=== PATIENT | female | born 1975 | race Caucasian/White ===

== ENCOUNTER 2016-11-28 15:02 | Emergency (ER) | payer OTHER ==
[2016-11-28 15:10] VITALS: TEMP 97.8
[2016-11-28 15:47] LABS: Appearance,Urine Clear (Clear); Bacteria,Urine Rare /hpf; Bilirubin,Urine Negative (Negative); Glucose,Urine (UA) Negative (Negative); Ketones,Urine Negative (Negative); Leukocyte Esterase,Urine Negative (Negative); Mucus,Urine Rare /hpf; Nitrite,Urine Negative (Negative); PH, Urine 5.5 (5.0-8.0); Particle Count 1193; Protein,Urine Negative (Negative); RBC,Urine 1 /hpf (0-5); Specific Gravity,Urine 1.011 (1.001-1.035); Squamous Epithelial Cell,Urine <1 /hpf (0-4); UA Billing (MACRO vs. MICRO) MICRO; Urobilinogen,Urine <2.0 mg/dL (<2.0); WBC,Urine 1 /hpf (0-5)
--- NOTE | 2016-11-28 16:09 | ED ---
General Adult HPI - General Chief complaint: Urogenital Stated complaint: Lost IUD Time Seen by Provider: 11/28/16 15:17 Source: patient, RN notes reviewed Mode of arrival: ambulatory Limitations: no limitations - Related Data Home Medications Medication Instructions Recorded Confirmed Evening [place] Oil 500 mg PO DAILY 11/28/16 11/28/16 Licha 500 mg PO DAILY 11/28/16 11/28/16 Magnesium Oxide [Mag-Ox] 400 mg PO DAILY 11/28/16 11/28/16 Turmeric/Turmeric Root Extract 1 cap PO DAILY 11/28/16 11/28/16 [Turmeric 450-50 mg Capsule] Previous Rx's Medication Instructions Recorded Nitrofurantoin Monohyd/M-Cryst 100 mg PO Q12HR #14 cap 11/28/16 [Macrobid] Allergies Allergy/AdvReac Type Severity Reaction Status Date / Time iodine Allergy Rash/Hives Verified 11/28/16 15:10 shellfish derived [Shellfish] Allergy Anaphylaxis Verified 11/28/16 15:10 prednisone AdvReac Severe Increased Verified 11/28/16 15:17 Blood Pressure Review of Systems ROS Statement: Those systems with pertinent positive or pertinent negative responses have been documented in the HPI. ROS Other: All systems not noted in ROS Statement are negative. Past Medical History Past Medical History: Asthma, Chest Pain / Angina, Liver Disease Additional Past Medical History / Comment(s): polycystic kidneys, lupus, heart murmur, pleurisy, elevated liver enzymes History of Any Multi-Drug Resistant Organisms: None Reported Past Surgical History: Appendectomy, Cholecystectomy, Tonsillectomy Additional Past Surgical History / Comment(s): wisdom teeth removal, colonoscopy and egd, IUD, kidney surgery Past Anesthesia/Blood Transfusion Reactions: Postoperative Nausea & Vomiting ( PONV) Past Psychological History: No Psychological Hx Reported Smoking Status: Former smoker Past Alcohol Use History: None Reported Past Drug Use History: None Reported - Past Family History Mother Family Medical History: Hypertension Additional Family Medical History / Comment(s): hypoglycemic General Exam Limitations: no limitations Course Vital Signs 11/28/16 11/28/16 15:06 16:12 Temperature 97.8 F Pulse Rate 80 64 Respiratory 18 16 Rate Blood Pressure 192/86 169/82 O2 Sat by Pulse 100 100 Oximetry Medical Decision Making - Medical Decision Making X-ray does confirm that IUD is still present. Patient's labs are reviewed does show some white cell clumps. She does admit to some symptoms of UTI. Will be started on antibiotic as cultures pending. Pelvic cultures also pending at this time. Patient is advised follow-up to [facility] over the next 2 days. Advised return to emergency room if symptoms increase or worsen or for new concerns. - Lab Data Lab Results 11/28/16 11/28/16 Range/Units 15:29 15:29 Urine Color Yellow Urine Appearance Clear (Clear) Urine pH 5.5 (5.0-8.0) Ur Specific [place] 1.011 (1.001-1.035) Urine Protein Negative (Negative) Urine Glucose (UA) Negative (Negative) Urine Ketones Negative (Negative) Urine Blood Trace H (Negative) Urine Nitrite Negative (Negative) Urine Bilirubin Negative (Negative) Urine Urobilinogen <2.0 (<2.0) mg/dL Ur Leukocyte Esterase Negative (Negative) Urine RBC 1 (0-5) /hpf Urine WBC 1 (0-5) /hpf Urine WBC Clumps Rare H (None) /hpf Ur Squamous Epith Cells <1 (0-4) /hpf Urine Bacteria Rare H (None) /hpf Urine Mucus Rare H (None) /hpf Urine HCG, Qual Not Detected (Not Detectd) Disposition Clinical Impression: Abdominal pain Disposition: HOME SELF-CARE Condition: Good Instructions: Abdominal Pain (ED) Additional Instructions: Please use medication as discussed. Please follow-up with family doctor in the next 2 days of symptoms have not improved. Please return to emergency room if the symptoms increase or worsen or for any other concerns. Prescriptions: Nitrofurantoin Monohyd/M-Cryst [Macrobid] 100 mg PO Q12HR #14 cap Referrals: Dony García MD [Primary Care Provider] - 1-2 days Time of Disposition: 16:45
[2016-11-28 16:13] VITALS: BP 169/82; PULSE 64; RESP 16
--- NOTE | 2016-11-28 16:40 | XR ---
Abdomen HISTORY: Pain, abdominal cramping and nausea Frontal view of the abdomen submitted on 2 images and correlated to prior exam dated 11/18/2015 intrauterine contraceptive device is overlying the pelvis. Double-J ureteral stent has been removed. Surgical clips in the right upper quadrant. Lung bases are clear. IMPRESSION: Interval removal of double-J stent.
== END 2016-11-28 16:46 | disposition home or self-care (01) ==
LOC: EC 15:02
DX: R10.9 Unspecified abdominal pain (principal); Z87.891 Personal history of nicotine dependence; Z79.899 Other long term (current) drug therapy; Z88.8 Allergy status to other drugs, medicaments and biological substances; Z91.013 Allergy to seafood; Z91.09 Other allergy status, other than to drugs and biological substances; Z97.5 Presence of (intrauterine) contraceptive device; Z90.49 Acquired absence of other specified parts of digestive tract
CPT/HCPCS: 74000; 81001; 81025; 87070; 87086; 87205; 87491; 87591; 87808; 99283

== ENCOUNTER 2017-09-01 22:06 | Emergency (ER) | payer OTHER ==
[2017-09-01 22:12] VITALS: RESP 17
[2017-09-01] MEDS ORDERED: SODIUM CHLORIDE 0.9% 1,000 ML IV STA (22:42)
[2017-09-01] MEDS ORDERED: ONDANSETRON 4 MG/2 ML VIAL IVP STA (22:56)
[2017-09-01 23:02] LABS: Appearance,Urine Clear (Clear); Bilirubin,Urine Negative (Negative); Blood,Urine Large (Negative); Color,Urine Light Red; Glucose,Urine (UA) Negative (Negative); Ketones,Urine Negative (Negative); Leukocyte Esterase,Urine Small (Negative); Nitrite,Urine Negative (Negative); PH, Urine 6.5 (5.0-8.0); Protein,Urine Trace (Negative); RBC,Urine >182 /hpf (0-5); Specific Gravity,Urine 1.015 (1.001-1.035); Squamous Epithelial Cell,Urine 1 /hpf (0-4); Urobilinogen,Urine <2.0 mg/dL (<2.0); WBC,Urine 32 /hpf (0-5)
--- NOTE | 2017-09-01 23:11 | XR ---
EXAMINATION TYPE: XR KUB DATE OF EXAM: 09/01/2017 FINDINGS: There is no sign of intestinal obstruction or pneumoperitoneum. Fecal pattern is normal. There is IUD noted. There are clips from cholecystectomy. There are faint small calcifications over both kidneys that measure up to 3 mm. Lung bases are clear. There is a faint 2 mm calcification over the pelvis on the left sided could be a distal ureteral stone. COMPARISON: 11/28/2016 HISTORY: Left flank pain TECHNIQUE: 2 views IMPRESSION: Bilateral small renal calculi. Possible distal left ureteral stone. No free air.
[2017-09-01 23:12] LABS: Basophils % (A) 0 %; Eosinophils # (A) 0.3 k/uL (0-0.7); Eosinophils % (A) 4 %; HCT 38.2 % (34.0-46.0); HGB 12.8 gm/dL (11.4-16.0); Lymphocytes # (A) 2.4 k/uL (1.0-4.8); Lymphocytes % (A) 28 %; MCH 28.2 pg (25.0-35.0); MCHC 33.4 g/dL (31.0-37.0); MCV 84.5 fL (80.0-100.0); Mean Platelet Volume 7.2; Monocytes # (A) 0.3 k/uL (0-1.0); Monocytes % (A) 4 %; Neutrophils # (A) 5.4 k/uL (1.3-7.7); Neutrophils % (A) 63 %; Platelet Count 331 k/uL (150-450); RBC 4.52 m/uL (3.80-5.40); RDW 12.9 % (11.5-15.5); WBC 8.7 k/uL (3.8-10.6)
--- NOTE | 2017-09-01 23:16 | ED ---
General Adult HPI - General Chief complaint: Urogenital Stated complaint: blood in urine/kidney pain Time Seen by Provider: 09/01/17 22:22 Source: patient, RN notes reviewed Mode of arrival: ambulatory Limitations: no limitations - History of Present Illness Initial comments: Patient 41-year-old female presenting to the emergency room today with a chief complaint of possible kidney infection. Patient states that she's had pain over the last 2 days. Patient does admit to pain located in the left flank. Around the lower abdomen both right and left sides. Patient states that she has noticed some blood in her urine. Patient admits to nausea at times. She also states she has a history of kidney stones but states this feels more like an infection to her. She denies any other complaints or symptoms currently. Patient denies any recent fever, chills, shortness of breath, chest pain, numbness or tingling, dysuria or hematuria, constipation or diarrhea, headaches or visual changes, or any other complaints. - Related Data Home Medications Medication Instructions Recorded Confirmed Ibuprofen [Motrin] 800 mg PO TID PRN 09/01/17 09/01/17 Previous Rx's Medication Instructions Recorded Phenazopyridine [Pyridium] 100 mg PO TID 3 Days day 09/01/17 Sulfamethox-Tmp 800-160Mg [Bactrim 1 tab PO Q12HR #20 tab 09/01/17 DS 800-160 mg] Allergies Allergy/AdvReac Type Severity Reaction Status Date / Time iodine Allergy Rash/Hives Verified 09/01/17 22:41 shellfish derived [Shellfish] Allergy Anaphylaxis Verified 09/01/17 22:41 prednisone AdvReac Severe Increased Verified 09/01/17 22:41 Blood Pressure Review of Systems ROS Statement: Those systems with pertinent positive or pertinent negative responses have been documented in the HPI. ROS Other: All systems not noted in ROS Statement are negative. Past Medical History Past Medical History: Asthma, Chest Pain / Angina, Liver Disease Additional Past Medical History / Comment(s): polycystic kidneys, lupus, heart murmur, pleurisy, elevated liver enzymes History of Any Multi-Drug Resistant Organisms: None Reported Past Surgical History: Appendectomy, Cholecystectomy, Tonsillectomy Additional Past Surgical History / Comment(s): wisdom teeth removal, colonoscopy and egd, IUD, kidney surgery Past Anesthesia/Blood Transfusion Reactions: Postoperative Nausea & Vomiting ( PONV) Past Psychological History: No Psychological Hx Reported Smoking Status: Former smoker Past Alcohol Use History: None Reported Past Drug Use History: None Reported - Past Family History Mother Family Medical History: Hypertension Additional Family Medical History / Comment(s): hypoglycemic General Exam - General Exam Comments Initial Comments: General: The patient is awake and alert, in no distress, and does not appear acutely ill. Eye: Pupils are equal, round and reactive to light, extra-ocular movements are intact. No nystagmus. There is normal conjunctiva bilaterally. Neck: The neck is supple, there is no tenderness or JVD. Cardiovascular: There is a regular rate and rhythm. No murmur, rub or gallop is appreciated. Respiratory: Lungs are clear to auscultation, respirations are non-labored, breath sounds are equal. No wheezes, stridor, rales, or rhonchi. Gastrointestinal: Abdomen soft on palpation. Patient does have tenderness left flank and also left and right lower quadrant. No rebound tenderness. No guarding. Musculoskeletal: Normal ROM, no tenderness. Strength 5/5. Sensation intact. Pulses equal bilaterally 2+. Neurological: A&O x 3. CN II-XII intact, There are no obvious motor or sensory deficits. Coordination appears grossly intact. Speech is normal. Skin: Skin is warm and dry and no rashes or lesions are noted. Psychiatric: Cooperative, appropriate mood & affect, normal judgment. Limitations: no limitations Course Vital Signs 09/01/17 22:09 Temperature 97.9 F Pulse Rate 81 Respiratory 17 Rate Blood Pressure 176/85 O2 Sat by Pulse 98 Oximetry Medical Decision Making - Medical Decision Making Patient reexamined at this time shows no signs of distress. Patient resting comfortable. Abdomen soft on palpation. Patient's urinalysis reviewed and does show possible infection. Patient's comfortable. Options were discussed CT patient is in agreement to follow-up with her urologist in the next 1-2 days. Advised to return if any symptoms increase or worsen or fever. Patient will be treated for infection. She states she has Flomax at home that she can use for the symptoms. Was discussed possible small kidney stone. Patient is advised return here to the emergency room symptoms increase worsen she states understanding and is. - Lab Data Result diagrams: 09/01/17 22:52 09/01/17 22:52 Lab Results 09/01/17 09/01/17 09/01/17 Range/Units 22:34 22:34 22:52 WBC (3.8-10.6) k/uL RBC (3.80-5.40) m/uL Hgb (11.4-16.0) gm/dL Hct (34.0-46.0) % MCV (80.0-100.0) fL MCH (25.0-35.0) pg MCHC (31.0-37.0) g/dL RDW (11.5-15.5) % Plt Count (150-450) k/uL Neutrophils % % Lymphocytes % % Monocytes % % Eosinophils % % Basophils % % Neutrophils # (1.3-7.7) k/uL Lymphocytes # (1.0-4.8) k/uL Monocytes # (0-1.0) k/uL Eosinophils # (0-0.7) k/uL Basophils # (0-0.2) k/uL Sodium 140 (137-145) mmol/L Potassium 3.8 (3.5-5.1) mmol/L Chloride 103 (98-107) mmol/L Carbon Dioxide 25 (22-30) mmol/L Anion Gap 12 mmol/L BUN 17 (7-17) mg/dL Creatinine 0.60 (0.52-1.04) mg/dL Est GFR (CKD-EPI)AfAm >90 (>60 ml/min/1.73 sqM) Est GFR (CKD-EPI)NonAf >90 (>60 ml/min/1.73 sqM) Glucose 85 (74-99) mg/dL Calcium 9.3 (8.4-10.2) mg/dL Total Bilirubin 0.6 (0.2-1.3) mg/dL AST 34 (14-36) U/L ALT 37 (9-52) U/L Alkaline Phosphatase 81 (38-126) U/L Total Protein 7.2 (6.3-8.2) g/dL Albumin 4.4 (3.5-5.0) g/dL Amylase 39 (30-110) U/L Lipase 76 (23-300) U/L Urine Color Light Red Urine Appearance Clear (Clear) Urine pH 6.5 (5.0-8.0) Ur Specific [place] 1.015 (1.001-1.035) Urine Protein Trace H (Negative) Urine Glucose (UA) Negative (Negative) Urine Ketones Negative (Negative) Urine Blood Large H (Negative) Urine Nitrite Negative (Negative) Urine Bilirubin Negative (Negative) Urine Urobilinogen <2.0 (<2.0) mg/dL Ur Leukocyte Esterase Small H (Negative) Urine RBC >182 H (0-5) /hpf Urine WBC 32 H (0-5) /hpf Ur Squamous Epith Cells 1 (0-4) /hpf Urine HCG, Qual Not Detected (Not Detectd) 09/01/17 Range/Units 22:52 WBC 8.7 (3.8-10.6) k/uL RBC 4.52 (3.80-5.40) m/uL Hgb 12.8 (11.4-16.0) gm/dL Hct 38.2 (34.0-46.0) % MCV 84.5 (80.0-100.0) fL MCH 28.2 (25.0-35.0) pg MCHC 33.4 (31.0-37.0) g/dL RDW 12.9 (11.5-15.5) % Plt Count 331 (150-450) k/uL Neutrophils % 63 % Lymphocytes % 28 % Monocytes % 4 % Eosinophils % 4 % Basophils % 0 % Neutrophils # 5.4 (1.3-7.7) k/uL Lymphocytes # 2.4 (1.0-4.8) k/uL Monocytes # 0.3 (0-1.0) k/uL Eosinophils # 0.3 (0-0.7) k/uL Basophils # 0.0 (0-0.2) k/uL Sodium (137-145) mmol/L Potassium (3.5-5.1) mmol/L Chloride (98-107) mmol/L Carbon Dioxide (22-30) mmol/L Anion Gap mmol/L BUN (7-17) mg/dL Creatinine (0.52-1.04) mg/dL Est GFR (CKD-EPI)AfAm (>60 ml/min/1.73 sqM) Est GFR (CKD-EPI)NonAf (>60 ml/min/1.73 sqM) Glucose (74-99) mg/dL Calcium (8.4-10.2) mg/dL Total Bilirubin (0.2-1.3) mg/dL AST (14-36) U/L ALT (9-52) U/L Alkaline Phosphatase (38-126) U/L Total Protein (6.3-8.2) g/dL Albumin (3.5-5.0) g/dL Amylase (30-110) U/L Lipase (23-300) U/L Urine Color Urine Appearance (Clear) Urine pH (5.0-8.0) Ur Specific [place] (1.001-1.035) Urine Protein (Negative) Urine Glucose (UA) (Negative) Urine Ketones (Negative) Urine Blood (Negative) Urine Nitrite (Negative) Urine Bilirubin (Negative) Urine Urobilinogen (<2.0) mg/dL Ur Leukocyte Esterase (Negative) Urine RBC (0-5) /hpf Urine WBC (0-5) /hpf Ur Squamous Epith Cells (0-4) /hpf Urine HCG, Qual (Not Detectd) Disposition Clinical Impression: UTI (urinary tract infection) Disposition: HOME SELF-CARE Condition: Good Instructions: Urinary Tract Infection in Women (ED) Additional Instructions: Please follow-up urologist tomorrow as discussed. Please use medications as prescribed and return here to the emergency room for any fever, increase or worsening of symptoms. Prescriptions: Phenazopyridine [Pyridium] 100 mg PO TID 3 Days day Sulfamethox-Tmp 800-160Mg [Bactrim DS 800-160 mg] 1 tab PO Q12HR #20 tab Is patient prescribed a controlled substance at d/c from ED?: No Referrals: Dony García MD [Primary Care Provider] - 1-2 days Time of Disposition: 23:57
[2017-09-01 23:24] LABS: ALT 37 U/L (9-52); AST 34 U/L (14-36); Albumin 4.4 g/dL (3.5-5.0); Alkaline Phosphatase 81 U/L (38-126); Amylase 39 U/L (30-110); Anion Gap 12 mmol/L; Blood Urea Nitrogen 17 mg/dL (7-17); Calcium 9.3 mg/dL (8.4-10.2); Carbon Dioxide 25 mmol/L (22-30); Chloride 103 mmol/L (98-107); Glucose 85 mg/dL (74-99); Lipase 76 U/L (23-300); Potassium 3.8 mmol/L (3.5-5.1); Sodium 140 mmol/L (137-145); Total Bilirubin 0.6 mg/dL (0.2-1.3); Total Protein 7.2 g/dL (6.3-8.2)
[2017-09-01] MEDS ORDERED: cefTRIAXone IN SWFI 1,000 MG/10 ML SYRINGE IVP STA (23:58)
[2017-09-02 00:14] VITALS: BP 152/89; PULSE 71; TEMP 97.8
== END 2017-09-02 00:14 | disposition home or self-care (01) ==
LOC: EC 22:06
DX: N39.0 Urinary tract infection, site not specified (principal); R10.31 Right lower quadrant pain; R10.32 Left lower quadrant pain; R11.0 Nausea; Z87.891 Personal history of nicotine dependence; Z88.8 Allergy status to other drugs, medicaments and biological substances; Z91.013 Allergy to seafood; Z90.49 Acquired absence of other specified parts of digestive tract
CPT/HCPCS: 99283; 96374; 96375; 96361; 36415; 80053; 82150; 83690; 85025; 81001; 81025; 87086; 74018; J2405; J0696

== ENCOUNTER 2018-02-09 15:34 | Emergency (ER) | payer OTHER ==
--- NOTE | 2018-02-09 16:21 | ED ---
General Adult HPI - General Chief complaint: Abdominal Pain Stated complaint: Abd Pain Source: patient Mode of arrival: ambulatory Limitations: no limitations - History of Present Illness Initial comments: Dictation was produced using [employer] dictation software. please excuse any grammatical, word or spelling errors. Chief Complaint: 42-year-old female past medical history of lupus, kidney stones, IUD presents with right abdominal pain. History of Present Illness: 49-year-old female multiple comorbidities, multiple renal lithiasis presents with right-sided lower quadrant pain. Patient had IUD. She states that pain has been ongoing for the last couple days. She states that her pain is in her right suprapubic area. She states that spent ongoing for the last 2 or 3 days. She did notice some episodes of bleeding however that has stopped. She was at her orthopedic surgeon's office today when they did an x-ray. She noticed that her IUD appeared in an abnormal orientation. Patient states her symptoms today are different from her kidney stone pain. Denies any constitutional symptoms. The ROS documented in this emergency department record has been reviewed and confirmed by me. Those systems with pertinent positive or negative responses have been documented in the HPI. All other systems are other negative and/or noncontributory. - Related Data Home Medications Medication Instructions Recorded Confirmed [place] Pepper 1 tab PO DAILY 02/09/18 02/09/18 Licha 500 mg PO DAILY 02/09/18 02/09/18 Turmeric Root Extract [Turmeric] 500 mg PO DAILY 02/09/18 02/09/18 Allergies Allergy/AdvReac Type Severity Reaction Status Date / Time iodine Allergy Rash/Hives Verified 02/09/18 15:54 shellfish derived [Shellfish] Allergy Anaphylaxis Verified 02/09/18 15:54 prednisone AdvReac Severe Increased Verified 02/09/18 15:54 Blood Pressure Review of Systems ROS Statement: Those systems with pertinent positive or pertinent negative responses have been documented in the HPI. ROS Other: All systems not noted in ROS Statement are negative. Past Medical History Past Medical History: Asthma, Chest Pain / Angina, Liver Disease Additional Past Medical History / Comment(s): polycystic kidneys, lupus, heart murmur, pleurisy, elevated liver enzymes History of Any Multi-Drug Resistant Organisms: None Reported Past Surgical History: Appendectomy, Cholecystectomy, Tonsillectomy Additional Past Surgical History / Comment(s): wisdom teeth removal, colonoscopy and egd, IUD, kidney surgery Past Anesthesia/Blood Transfusion Reactions: Postoperative Nausea & Vomiting ( PONV) Past Psychological History: No Psychological Hx Reported Smoking Status: Former smoker Past Alcohol Use History: None Reported Past Drug Use History: None Reported - Past Family History Mother Family Medical History: Hypertension Additional Family Medical History / Comment(s): hypoglycemic General Exam - General Exam Comments Initial Comments: PHYSICAL EXAM: General Impression: Alert and oriented x3, not in acute distress HEENT: Normocephalic atraumatic, extra-ocular movements intact, pupils equal and reactive to light bilaterally, mucous membranes moist. Cardiovascular: Heart regular rate and rhythm, S1&S2 audible, no murmurs, rubs or gallops Chest: Lungs clear to auscultation bilaterally, no rhonchi, no wheeze, no rales Abdomen: Bowel sounds present, abdomen soft, non-tender, non-distended, no organomegaly Musculoskeletal: Pulses present and equal in all extremities, no peripheral edema Motor: Power 5/5 bilaterally, no focal deficits noted Neurological: CN II-XII grossly intact, no focal motor or sensory deficits noted Skin: Intact with no visualized rashes Psych: Normal affect and mood Limitations: no limitations Course Vital Signs 02/09/18 15:37 Temperature 98.7 F Pulse Rate 85 Respiratory 20 Rate Blood Pressure 171/86 O2 Sat by Pulse 99 Oximetry Medical Decision Making - Medical Decision Making ED course: 49-year-old female with abdominal pain. Vital signs upon arrival shows tachycardia 109, rest of vital signs are unremarkable. There are multiple possibility of patient's symptoms.Abdomen evaluation obtained. CBC unremarkable, metabolic panel unremarkable urinalysis shows small blood. There is 2 white blood cells. HCG is negative. Transvaginal ultrasound shows no acute findings. Ovaries not seen on transvaginal images. Patient does not appear to be in severe pain. HPI not consistent with ovarian torsion. IUD appears to be in good position. Abdominal bladder ultrasound shows nonobstructing calculi. No hydronephrosis seen. Pelvic exam showed IUD in good position. No adnexal or cervical motion tenderness. There is reasonably that patient's symptoms are secondary to nonobstructing renal calculi. Patient may have passed a stone recently. Patient be discharged per she is told to follow-up with urologist. Patient is adamant agreeable to plan. She is told to take Motrin for pain. - Lab Data Result diagrams: 02/09/18 16:20 02/09/18 16:20 Lab Results 02/09/18 02/09/18 02/09/18 Range/Units 16:20 16:20 16:20 WBC 7.1 (3.8-10.6) k/uL RBC 4.98 (3.80-5.40) m/uL Hgb 14.3 (11.4-16.0) gm/dL Hct 42.7 (34.0-46.0) % MCV 85.8 (80.0-100.0) fL MCH 28.7 (25.0-35.0) pg MCHC 33.4 (31.0-37.0) g/dL RDW 13.4 (11.5-15.5) % Plt Count 348 (150-450) k/uL Neutrophils % 68 % Lymphocytes % 23 % Monocytes % 4 % Eosinophils % 3 % Basophils % 1 % Neutrophils # 4.8 (1.3-7.7) k/uL Lymphocytes # 1.6 (1.0-4.8) k/uL Monocytes # 0.3 (0-1.0) k/uL Eosinophils # 0.2 (0-0.7) k/uL Basophils # 0.0 (0-0.2) k/uL Sodium 141 (137-145) mmol/L Potassium 4.1 (3.5-5.1) mmol/L Chloride 105 (98-107) mmol/L Carbon Dioxide 24 (22-30) mmol/L Anion Gap 12 mmol/L BUN 11 (7-17) mg/dL Creatinine 0.60 (0.52-1.04) mg/dL Est GFR (CKD-EPI)AfAm >90 (>60 ml/min/1.73 sqM) Est GFR (CKD-EPI)NonAf >90 (>60 ml/min/1.73 sqM) Glucose 89 (74-99) mg/dL Calcium 10.2 (8.4-10.2) mg/dL Urine Color Light Yellow Urine Appearance Clear (Clear) Urine pH 6.0 (5.0-8.0) Ur Specific [place] 1.003 (1.001-1.035) Urine Protein Negative (Negative) Urine Glucose (UA) Negative (Negative) Urine Ketones Negative (Negative) Urine Blood Small H (Negative) Urine Nitrite Negative (Negative) Urine Bilirubin Negative (Negative) Urine Urobilinogen <2.0 (<2.0) mg/dL Ur Leukocyte Esterase Negative (Negative) Urine RBC 2 (0-5) /hpf Urine WBC 2 (0-5) /hpf Ur Squamous Epith Cells <1 (0-4) /hpf Hyaline Casts 1 (0-2) /lpf Urine HCG, Qual (Not Detectd) 02/09/18 Range/Units 16:40 WBC (3.8-10.6) k/uL RBC (3.80-5.40) m/uL Hgb (11.4-16.0) gm/dL Hct (34.0-46.0) % MCV (80.0-100.0) fL MCH (25.0-35.0) pg MCHC (31.0-37.0) g/dL RDW (11.5-15.5) % Plt Count (150-450) k/uL Neutrophils % % Lymphocytes % % Monocytes % % Eosinophils % % Basophils % % Neutrophils # (1.3-7.7) k/uL Lymphocytes # (1.0-4.8) k/uL Monocytes # (0-1.0) k/uL Eosinophils # (0-0.7) k/uL Basophils # (0-0.2) k/uL Sodium (137-145) mmol/L Potassium (3.5-5.1) mmol/L Chloride (98-107) mmol/L Carbon Dioxide (22-30) mmol/L Anion Gap mmol/L BUN (7-17) mg/dL Creatinine (0.52-1.04) mg/dL Est GFR (CKD-EPI)AfAm (>60 ml/min/1.73 sqM) Est GFR (CKD-EPI)NonAf (>60 ml/min/1.73 sqM) Glucose (74-99) mg/dL Calcium (8.4-10.2) mg/dL Urine Color Urine Appearance (Clear) Urine pH (5.0-8.0) Ur Specific [place] (1.001-1.035) Urine Protein (Negative) Urine Glucose (UA) (Negative) Urine Ketones (Negative) Urine Blood (Negative) Urine Nitrite (Negative) Urine Bilirubin (Negative) Urine Urobilinogen (<2.0) mg/dL Ur Leukocyte Esterase (Negative) Urine RBC (0-5) /hpf Urine WBC (0-5) /hpf Ur Squamous Epith Cells (0-4) /hpf Hyaline Casts (0-2) /lpf Urine HCG, Qual Not Detected (Not Detectd) Disposition Clinical Impression: Pelvic pain Disposition: HOME SELF-CARE Condition: Good Is patient prescribed a controlled substance at d/c from ED?: No Referrals: Dony aGrcía MD [Primary Care Provider] - 1-2 days
[2018-02-09 16:41] LABS: Basophils % (A) 1 %; Eosinophils # (A) 0.2 k/uL (0-0.7); Eosinophils % (A) 3 %; HCT 42.7 % (34.0-46.0); HGB 14.3 gm/dL (11.4-16.0); Lymphocytes # (A) 1.6 k/uL (1.0-4.8); Lymphocytes % (A) 23 %; MCH 28.7 pg (25.0-35.0); MCHC 33.4 g/dL (31.0-37.0); MCV 85.8 fL (80.0-100.0); Mean Platelet Volume 6.5; Monocytes # (A) 0.3 k/uL (0-1.0); Monocytes % (A) 4 %; Neutrophils # (A) 4.8 k/uL (1.3-7.7); Neutrophils % (A) 68 %; Platelet Count 348 k/uL (150-450); RBC 4.98 m/uL (3.80-5.40); RDW 13.4 % (11.5-15.5); WBC 7.1 k/uL (3.8-10.6)
[2018-02-09 16:46] LABS: Appearance,Urine Clear (Clear); Bilirubin,Urine Negative (Negative); Blood,Urine Small (Negative); Color,Urine Light Yellow; Glucose,Urine (UA) Negative (Negative); Hyaline Casts,Urine 1 /lpf (0-2); Ketones,Urine Negative (Negative); Leukocyte Esterase,Urine Negative (Negative); Nitrite,Urine Negative (Negative); Protein,Urine Negative (Negative); RBC,Urine 2 /hpf (0-5); Specific Gravity,Urine 1.003 (1.001-1.035); Squamous Epithelial Cell,Urine <1 /hpf (0-4); Urobilinogen,Urine <2.0 mg/dL (<2.0); WBC,Urine 2 /hpf (0-5)
[2018-02-09 16:50] LABS: Anion Gap 12 mmol/L; Blood Urea Nitrogen 11 mg/dL (7-17); Calcium 10.2 mg/dL (8.4-10.2); Carbon Dioxide 24 mmol/L (22-30); Chloride 105 mmol/L (98-107); Glucose 89 mg/dL (74-99); Potassium 4.1 mmol/L (3.5-5.1); Sodium 141 mmol/L (137-145)
--- NOTE | 2018-02-09 17:46 | US ---
EXAMINATION TYPE: US kidneys/renal and bladder DATE OF EXAM: 02/09/2018 COMPARISON: NONE CLINICAL HISTORY: Pain. Pain hx of kidney stones. EXAM MEASUREMENTS: Right Kidney: 10.3 x 4.1 x 3.9 cm Left Kidney: 12.4 x 4.1 x 4.3 cm Right Kidney: Echogenic foci seen mid pole 1.8cm. No hydronephrosis seen. Left Kidney: Echogenic foci seen. Bladder: wnl Bilateral Jets seen: Yes No masses are identified. The urinary bladder is anechoic. Bilateral ureteral jets are seen. IMPRESSION: Area of increased echogenicity with mild shadowing in the upper pole right kidney consistent with non obstructing calculus. No hydronephrosis seen.
--- NOTE | 2018-02-09 17:56 | US ---
EXAMINATION TYPE: US transvaginal DATE OF EXAM: 02/09/2018 COMPARISON: NONE CLINICAL HISTORY: Pain. Pain Bradley T IUD placement. TECHNIQUE: Transvaginal (TV). EXAM MEASUREMENTS: Uterus: 7.3 x 3.8 x 4.0 cm Endometrial Stripe: 3.7 cm 1. Uterus: Anteverted wnl 2. Endometrium: wnl 3. Right Ovary: Obscured by overlying bowel gas 4. Left Ovary: Obscured by overlying bowel gas 5. Bilateral Adnexa: wnl 6. Posterior cul-de-sac: wnl IUD seen with in the endometrial lining. IMPRESSION: IUD appears in good position. Normal uterus. No adnexal mass. Ovaries are not seen on the se transvaginal images. No free fluid.
[2018-02-09 18:31] VITALS: BP 180/88; PULSE 74; RESP 18; TEMP 98.3
== END 2018-02-09 18:35 | disposition home or self-care (01) ==
LOC: EC 15:34
DX: R10.2 Pelvic and perineal pain (principal); R10.31 Right lower quadrant pain; R00.0 Tachycardia, unspecified; Q61.3 Polycystic kidney, unspecified; Z87.442 Personal history of urinary calculi; Z90.49 Acquired absence of other specified parts of digestive tract; Z97.5 Presence of (intrauterine) contraceptive device; Z87.891 Personal history of nicotine dependence; Z79.899 Other long term (current) drug therapy; Z91.048 Other nonmedicinal substance allergy status; Z91.013 Allergy to seafood; Z88.8 Allergy status to other drugs, medicaments and biological substances
CPT/HCPCS: 36415; 76770; 76830; 80048; 81001; 81025; 85025; 87086; 99284

== ENCOUNTER 2018-02-22 16:14 | Observation (INO) | payer OTHER ==
[2018-02-22] MEDS ORDERED: ONDANSETRON 4 MG/2 ML VIAL IVP STA ×2 (17:29→19:20)
[2018-02-22] MEDS ORDERED: SODIUM CHLORIDE 0.9% 1,000 ML IV STA (17:29)
[2018-02-22] MEDS ORDERED: MORPHINE SULFATE 4 MG/ML SYRINGE IV STA (17:29)
--- NOTE | 2018-02-22 17:34 | ED ---
General Adult HPI - General Source: patient, RN notes reviewed Mode of arrival: wheelchair Limitations: no limitations <Tyrone Parry - Last Filed: 02/22/18 19:22> <Viet Llanos - Last Filed: 02/22/18 23:59> - General Chief complaint: Abdominal Pain Stated complaint: Abd burning & Hypertensive Time Seen by Provider: 02/22/18 17:08 - History of Present Illness Initial comments: Patient's a 42-year-old female presented to the emergency room today with a chief complaint of left sided back pain wrapping around to the side of the abdomen. Patient does admit some sharp burning type pain started in the left middle back with radiation around underneath the left breast. Patient is material burning and pressure-like pain in the left side of the chest wall. She states she does feel some tingling going into the left arm. Patient states symptoms started approximately noon this afternoon. Patient admits to nausea vomiting. States she has had diarrhea over the last few days. She does admit that she does have a blocked dog on the right side. She states that she is scheduled to have a procedure for this. States pain does not feel like kidney stones. Denies any other complaints at this time. Patient denies any recent fever, chills, shortness of breath, chest pain, numbness or tingling, dysuria or hematuria, headaches or visual changes, or any other complaints. (Tyrone Parry) - Related Data Home Medications Medication Instructions Recorded Confirmed Lisinopril [Zestril] 5 mg PO DAILY 02/22/18 02/22/18 Orphenadrine [Norflex] 100 mg PO BID PRN 02/22/18 02/22/18 Phenazopyridine [Pyridium] 200 mg PO TID 02/22/18 02/22/18 Tamsulosin HCl [Flomax] 0.4 mg PO BID 02/22/18 02/22/18 Allergies Allergy/AdvReac Type Severity Reaction Status Date / Time iodine Allergy Rash/Hives Verified 02/22/18 16:51 shellfish derived [Shellfish] Allergy Anaphylaxis Verified 02/22/18 16:51 prednisone AdvReac Severe Increased Verified 02/22/18 16:51 Blood Pressure Review of Systems ROS Other: All systems not noted in ROS Statement are negative. <Tyrone Parry - Last Filed: 02/22/18 19:22> ROS Other: All systems not noted in ROS Statement are negative. <RomiViet Macdonald - Last Filed: 02/22/18 23:59> ROS Statement: Those systems with pertinent positive or pertinent negative responses have been documented in the HPI. Past Medical History Past Medical History: Asthma, Chest Pain / Angina, Liver Disease Additional Past Medical History / Comment(s): polycystic kidneys, lupus, heart murmur, pleurisy, elevated liver enzymes History of Any Multi-Drug Resistant Organisms: None Reported Past Surgical History: Appendectomy, Cholecystectomy, Tonsillectomy Additional Past Surgical History / Comment(s): wisdom teeth removal, colonoscopy and egd, IUD, kidney surgery Past Anesthesia/Blood Transfusion Reactions: Postoperative Nausea & Vomiting ( PONV) Past Psychological History: No Psychological Hx Reported Smoking Status: Former smoker Past Alcohol Use History: None Reported Past Drug Use History: None Reported - Past Family History Mother Family Medical History: Hypertension Additional Family Medical History / Comment(s): hypoglycemic <SohanTyrone - Last Filed: 02/22/18 19:22> General Exam Limitations: no limitations <Tyrone Parry - Last Filed: 02/22/18 19:22> <RomiVietBucky - Last Filed: 02/22/18 23:59> - General Exam Comments Initial Comments: General: The patient is awake and alert, mild distress. Eye: No nystagmus. There is normal conjunctiva bilaterally. No signs of icterus. Ears, nose, mouth and throat: There are moist mucous membranes and no oral lesions. Neck: The neck is supple, there is no tenderness or JVD. Cardiovascular: There is a regular rate and rhythm. No murmur, rub or gallop is appreciated. Respiratory: Lungs are clear to auscultation, respirations are non-labored, breath sounds are equal. No wheezes, stridor, rales, or rhonchi. Gastrointestinal: Soft palpation. Patient does have tenderness in the epigastric and left upper quadrant. No rebound, guarding or CVA tenderness. Musculoskeletal: Normal ROM, no tenderness. Sensation intact. Strength 5/5. Pulses equal bilaterally 2+. Neurological: A&O x 3. CN II-XII intact, There are no obvious motor or sensory deficits. Coordination appears grossly intact. Speech is normal. Skin: Skin is warm and dry and no rashes or lesions are noted. Psychiatric: Cooperative, appropriate mood & affect, normal judgment. (Tyrone Parry) Course <Tyrone Parry - Last Filed: 02/22/18 19:22> <Viet Llanos - Last Filed: 02/22/18 23:59> Vital Signs 02/22/18 02/22/18 02/22/18 16:30 18:00 18:30 Temperature 98.4 F Pulse Rate 71 Respiratory 18 Rate Blood Pressure 151/80 188/101 173/83 O2 Sat by Pulse 100 100 Oximetry 02/22/18 02/22/18 19:00 21:44 Temperature Pulse Rate 80 66 Respiratory 16 Rate Blood Pressure 175/80 133/81 O2 Sat by Pulse 100 100 Oximetry - Reevaluation(s) Reevaluation #1: 02/22/18 19:22 Patient reexamined at this time and cystoscopy expressing pain in the left side of the back rate around to the front. Patient does admit to feeling somewhat nauseous. Pain medicine did help. Patient labs been reviewed and does show d- dimer elevated 1.14. Remaining labs are unremarkable at this time. EKG shows normal sinus rhythm. Patient will have CT of the chest along with CT with contrast of abdomen and pelvis at this time. (Tyrone Parry) EKG Findings - EKG Comments: EKG Findings:: EKG performed at 181: Shows normal sinus rhythm at 72 bpm. IL interval 148. QRS 92. QT/QTc 430/470. No acute ST change. <Tyrone Parry - Last Filed: 02/22/18 19:22> Medical Decision Making - Lab Data Result diagrams: 02/22/18 17:49 02/22/18 17:49 <Tyrone Parry - Last Filed: 02/22/18 19:22> - Lab Data Result diagrams: 02/22/18 17:49 02/22/18 17:49 <Viet Llanos - Last Filed: 02/22/18 23:59> - Medical Decision Making The patient was seen and examined. The d-dimer is elevated so we did complete a computed tomography scan of the thorax with contrast and this does not show any evidence of pulmonary embolism. She has a lot of pain in the border of the left lower chest and the upper left abdomen and therefore a computed tomography scan of the abdomen and pelvis is completed and this does not show any acute process either. She appears of improved on recheck. It is felt as though the possibility of acute cord any symptoms really is possible. She does have lupus and this increases her risk of atypical cardiac disease. The patient is ever had a stress test or heart catheterization. She is agreeable to admission. She states that she does have a urologic procedure scheduled 2 days and should likely get cleared from a Cardiologic standpoint prior to this procedure at [facility]. Case will be discussed with medicine in the near future. (Viet Llanos) - Lab Data Lab Results 02/22/18 02/22/18 02/22/18 Range/Units 17:49 17:49 17:49 WBC (3.8-10.6) k/uL RBC (3.80-5.40) m/uL Hgb (11.4-16.0) gm/dL Hct (34.0-46.0) % MCV (80.0-100.0) fL MCH (25.0-35.0) pg MCHC (31.0-37.0) g/dL RDW (11.5-15.5) % Plt Count (150-450) k/uL Neutrophils % % Lymphocytes % % Monocytes % % Eosinophils % % Basophils % % Neutrophils # (1.3-7.7) k/uL Lymphocytes # (1.0-4.8) k/uL Monocytes # (0-1.0) k/uL Eosinophils # (0-0.7) k/uL Basophils # (0-0.2) k/uL PT (9.0-12.0) sec INR (<1.2) APTT (22.0-30.0) sec D-Dimer (<0.60) mg/L FEU Sodium 139 (137-145) mmol/L Potassium 4.0 (3.5-5.1) mmol/L Chloride 105 (98-107) mmol/L Carbon Dioxide 25 (22-30) mmol/L Anion Gap 9 mmol/L BUN 15 (7-17) mg/dL Creatinine 0.59 (0.52-1.04) mg/dL Est GFR (CKD-EPI)AfAm >90 (>60 ml/min/1.73 sqM) Est GFR (CKD-EPI)NonAf >90 (>60 ml/min/1.73 sqM) Glucose 88 (74-99) mg/dL Calcium 9.8 (8.4-10.2) mg/dL Total Bilirubin 0.8 (0.2-1.3) mg/dL AST 26 (14-36) U/L ALT 33 (9-52) U/L Alkaline Phosphatase 99 (38-126) U/L Total Creatine Kinase 124 (30-135) U/L CK-MB (CK-2) 1.1 (0.0-2.4) ng/mL CK-MB (CK-2) Rel Index 0.9 Troponin I <0.012 (0.000-0.034) ng/mL Total Protein 7.8 (6.3-8.2) g/dL Albumin 4.4 (3.5-5.0) g/dL Amylase 43 (30-110) U/L Lipase 77 (23-300) U/L Urine Color Colorless Urine Appearance Clear (Clear) Urine pH 7.0 (5.0-8.0) Ur Specific [place] 1.003 (1.001-1.035) Urine Protein Negative (Negative) Urine Glucose (UA) Negative (Negative) Urine Ketones Negative (Negative) Urine Blood Negative (Negative) Urine Nitrite Negative (Negative) Urine Bilirubin Negative (Negative) Urine Urobilinogen <2.0 (<2.0) mg/dL Ur Leukocyte Esterase Trace H (Negative) Urine RBC <1 (0-5) /hpf Urine WBC 2 (0-5) /hpf Ur Squamous Epith Cells 1 (0-4) /hpf 02/22/18 02/22/18 Range/Units 17:49 17:49 WBC 7.5 (3.8-10.6) k/uL RBC 4.99 (3.80-5.40) m/uL Hgb 14.4 (11.4-16.0) gm/dL Hct 43.3 (34.0-46.0) % MCV 86.8 (80.0-100.0) fL MCH 28.9 (25.0-35.0) pg MCHC 33.3 (31.0-37.0) g/dL RDW 13.3 (11.5-15.5) % Plt Count 335 (150-450) k/uL Neutrophils % 64 % Lymphocytes % 28 % Monocytes % 3 % Eosinophils % 3 % Basophils % 1 % Neutrophils # 4.8 (1.3-7.7) k/uL Lymphocytes # 2.1 (1.0-4.8) k/uL Monocytes # 0.3 (0-1.0) k/uL Eosinophils # 0.2 (0-0.7) k/uL Basophils # 0.0 (0-0.2) k/uL PT 9.4 (9.0-12.0) sec INR 0.9 (<1.2) APTT 24.0 (22.0-30.0) sec D-Dimer 1.14 H (<0.60) mg/L FEU Sodium (137-145) mmol/L Potassium (3.5-5.1) mmol/L Chloride (98-107) mmol/L Carbon Dioxide (22-30) mmol/L Anion Gap mmol/L BUN (7-17) mg/dL Creatinine (0.52-1.04) mg/dL Est GFR (CKD-EPI)AfAm (>60 ml/min/1.73 sqM) Est GFR (CKD-EPI)NonAf (>60 ml/min/1.73 sqM) Glucose (74-99) mg/dL Calcium (8.4-10.2) mg/dL Total Bilirubin (0.2-1.3) mg/dL AST (14-36) U/L ALT (9-52) U/L Alkaline Phosphatase (38-126) U/L Total Creatine Kinase (30-135) U/L CK-MB (CK-2) (0.0-2.4) ng/mL CK-MB (CK-2) Rel Index Troponin I (0.000-0.034) ng/mL Total Protein (6.3-8.2) g/dL Albumin (3.5-5.0) g/dL Amylase (30-110) U/L Lipase (23-300) U/L Urine Color Urine Appearance (Clear) Urine pH (5.0-8.0) Ur Specific [place] (1.001-1.035) Urine Protein (Negative) Urine Glucose (UA) (Negative) Urine Ketones (Negative) Urine Blood (Negative) Urine Nitrite (Negative) Urine Bilirubin (Negative) Urine Urobilinogen (<2.0) mg/dL Ur Leukocyte Esterase (Negative) Urine RBC (0-5) /hpf Urine WBC (0-5) /hpf Ur Squamous Epith Cells (0-4) /hpf Disposition <Tyrone Parry - Last Filed: 02/22/18 19:22> Time of Disposition: 23:59 Decision Date: 02/22/18 Decision Time: 23:59 <Viet Llanos - Last Filed: 02/22/18 23:59> Clinical Impression: Chest pain, Abdominal pain, Unstable angina, Lupus Disposition: ADMITTED IP TO THIS HOSP Condition: Fair
[2018-02-22 18:13] LABS: Appearance,Urine Clear (Clear); Bilirubin,Urine Negative (Negative); Blood,Urine Negative (Negative); Color,Urine Colorless; Glucose,Urine (UA) Negative (Negative); Ketones,Urine Negative (Negative); Leukocyte Esterase,Urine Trace (Negative); Nitrite,Urine Negative (Negative); Protein,Urine Negative (Negative); RBC,Urine <1 /hpf (0-5); Specific Gravity,Urine 1.003 (1.001-1.035); Squamous Epithelial Cell,Urine 1 /hpf (0-4); Urobilinogen,Urine <2.0 mg/dL (<2.0)
[2018-02-22 18:14] LABS: Basophils % (A) 1 %; Eosinophils # (A) 0.2 k/uL (0-0.7); Eosinophils % (A) 3 %; HCT 43.3 % (34.0-46.0); HGB 14.4 gm/dL (11.4-16.0); Lymphocytes # (A) 2.1 k/uL (1.0-4.8); Lymphocytes % (A) 28 %; MCH 28.9 pg (25.0-35.0); MCHC 33.3 g/dL (31.0-37.0); MCV 86.8 fL (80.0-100.0); Monocytes # (A) 0.3 k/uL (0-1.0); Monocytes % (A) 3 %; Neutrophils # (A) 4.8 k/uL (1.3-7.7); Neutrophils % (A) 64 %; Platelet Count 335 k/uL (150-450); RBC 4.99 m/uL (3.80-5.40); RDW 13.3 % (11.5-15.5); WBC 7.5 k/uL (3.8-10.6)
[2018-02-22 18:24] LABS: ALT 33 U/L (9-52); AST 26 U/L (14-36); Albumin 4.4 g/dL (3.5-5.0); Alkaline Phosphatase 99 U/L (38-126); Amylase 43 U/L (30-110); Anion Gap 9 mmol/L; Blood Urea Nitrogen 15 mg/dL (7-17); Calcium 9.8 mg/dL (8.4-10.2); Carbon Dioxide 25 mmol/L (22-30); Chloride 105 mmol/L (98-107); Glucose 88 mg/dL (74-99); Lipase 77 U/L (23-300); Sodium 139 mmol/L (137-145); Total Bilirubin 0.8 mg/dL (0.2-1.3); Total Protein 7.8 g/dL (6.3-8.2)
[2018-02-22 18:26] LABS: Creatine Kinase 124 U/L (30-135); INR 0.9 (<1.2); Prothrombin Time 9.4 sec (9.0-12.0)
[2018-02-22 18:38] LABS: Creatine Kinase MB 1.1 ng/mL (0.0-2.4); Troponin I <0.012 ng/mL (0.000-0.034)
[2018-02-22 18:51] LABS: D-Dimer 1.14 mg/L FEU (<0.60)
[2018-02-22] MEDS ORDERED: HYDROmorphone 1 MG/ML 1 ML SYRINGE IVP STA (19:20)
--- NOTE | 2018-02-22 19:57 | XR ---
EXAMINATION: XR chest 2V DATE AND TIME: 02/22/2018 6:35 PM CLINICAL INDICATION: pain TECHNIQUE: PA and lateral COMPARISON: 01/20/2015 FINDINGS: The lungs are clear. The pleural spaces are negative. The cardiac silhouette is not enlarged. The remainder of the mediastinal silhouette is unremarkable. The skeletal structures and soft tissues are negative for acute findings. IMPRESSION: NO ACUTE PROCESS.
[2018-02-22] MEDS ORDERED: diphenhydrAMINE 50 MG/ML 1 ML VIAL IVP STA (19:58)
[2018-02-22] MEDS ORDERED: FAMOTIDINE 20 MG/2 ML VIAL IV STA (19:58)
--- NOTE | 2018-02-22 20:00 | XR ---
EXAMINATION TYPE: XR KUB DATE OF EXAM: 02/22/2018 COMPARISON: 09/01/17 HISTORY: Abdominal pain left side TECHNIQUE: 2 upright views of the abdomen and pelvis FINDINGS: The visualized lung bases and pleural spaces are negative. There is no pneumoperitoneum or pneumatosis. Bowel gas pattern is normal. No definite acute soft tissue or skeletal findings. However, there are bilateral subcentimeter calcifications noted over the renal shadows. There are no calcifications over the expected course of the ureters. Pelvic phleboliths redemonstrated. IUD redemonstrated in the mid pelvis. IMPRESSION: No definite acute process.
--- NOTE | 2018-02-22 21:21 | CT ---
EXAMINATION TYPE: CT abdomen pelvis w con DATE OF EXAM: 02/22/2018 COMPARISON: 11/08/2015 HISTORY: Left upper abdominal and chest pain. CT DLP: 799.2 mGycm. Automated exposure control for dose reduction was used. TECHNIQUE: Helical acquisition of images was performed from the lung bases through the pelvis. CONTRAST: Performed without Oral Contrast and with IV Contrast, patient injected with 100ml mL of Iso krissy 370. FINDINGS: LUNG BASES: No significant abnormality is appreciated. LIVER/GB: No significant abnormality is appreciated. PANCREAS: No significant abnormality is seen. SPLEEN: No significant abnormality is seen. ADRENALS: No significant abnormality is seen. KIDNEYS AND URETERS: There are a few scattered 5 and 6 mm bilateral nonobstructing uroliths. There is no hydronephrosis. No hydroureter. FREE AIR: No free air is visualized. RETROPERITONEAL ADENOPATHY: No acute findings. IUD noted. REPRODUCTIVE ORGANS: No significant abnormality is seen URINARY BLADDER: No significant abnormality is seen. PELVIC ADENOPATHY: None visualized. OSSEOUS STRUCTURES: No significant abnormality is seen. BOWEL: No significant abnormality is seen. VASCULATURE: No acute findings. IMPRESSION: NO ACUTE PROCESS.
--- NOTE | 2018-02-22 21:38 | CT ---
EXAMINATION TYPE: CT angio chest with contrast and with 3-D reconstruction renderings DATE OF EXAM: 02/22/2018 8:41 PM COMPARISON: 05/10/2015 HISTORY: Left upper abdominal and chest pain. CT DLP: 365.2 mGycm. Automated exposure control for dose reduction was used. CONTRAST: CTA scan of the thorax is performed with IV Contrast, patient injected with 100ml mL of Iso krissy 370, pulmonary embolism protocol. 3-D reconstructions. FINDINGS: LUNGS: The lungs are grossly clear, there is no concerning parenchymal mass or nodule identified. T here is no pleural effusion or pneumothorax seen. The tracheobronchial tree is patent. MEDIASTINUM: There is satisfactory enhancement of the pulmonary artery and its branches, there is no CT evidence for pulmonary embolism. Aorta is unremarkable. There are no greater than 1 cm hilar or me diastinal lymph nodes. No cardiomegaly. No pericardial effusion is seen. OTHER: No additional significant abnormality is seen. IMPRESSION: NO ACUTE PROCESS.
[2018-02-23] MEDS ORDERED: ACETAMINOPHEN TAB 325 MG TAB PO PRN (00:01)
[2018-02-23] MEDS ORDERED: NITROGLYCERIN SL TABS 0.4 MG TAB SUBLINGUAL PRN (00:01)
[2018-02-23] MEDS ORDERED: CYCLOBENZAPRINE 10 MG TAB PO PRN (00:04)
[2018-02-23 03:02] VITALS: BMI 36.8
[2018-02-23 03:31] LABS: Creatine Kinase 95 U/L (30-135)
[2018-02-23 03:44] LABS: Creatine Kinase MB 0.9 ng/mL (0.0-2.4); Troponin I <0.012 ng/mL (0.000-0.034)
[2018-02-23] MEDS ORDERED: NITROGLYCERIN OINT 1 INCH/GM PACKET TOPICAL SCH (06:00)
[2018-02-23 07:18] VITALS: RESP 16
[2018-02-23] MEDS ORDERED: TAMSULOSIN 0.4 MG CAP.ER.24H PO SCH (09:00)
[2018-02-23] MEDS ORDERED: METOPROLOL TARTRATE 25 MG TAB PO SCH (09:00)
[2018-02-23] MEDS ORDERED: ENOXAPARIN 40 MG/0.4 ML SYRINGE SQ SCH (09:00)
[2018-02-23] MEDS ORDERED: LISINOPRIL 5 MG TAB PO SCH (09:00)
[2018-02-23] MEDS ORDERED: PHENAZOPYRIDINE 200 MG TAB PO SCH (09:00)
--- NOTE | 2018-02-23 09:46 | P.CRDCN ---
<James Hardwick - Last Filed: 02/23/18 09:44> History of Present Illness History of present illness: Patient interviewed and examined. Crying secondary to flank pain. She states that the pain is in the left upper quadrant and in the left flank and goes up further right upper into her neck normal cardiac enzymes normal ECG no risk factors for coronary artery disease suggest workup of abdominal issues and kidney problems. 2-D echo and Doppler study has been ordered and we will review this did know indication for stress testing or any other cardiac workup. Her symptoms do not appear to be cardiac in nature May go to the medical floor from a cardiac standpoint Please see full dictation by nurse practitioner Past Medical History Past Medical History: Asthma, Chest Pain / Angina, Liver Disease Additional Past Medical History / Comment(s): polycystic kidneys, lupus, heart murmur, pleurisy, elevated liver enzymes History of Any Multi-Drug Resistant Organisms: None Reported Past Surgical History: Appendectomy, Cholecystectomy, Tonsillectomy Additional Past Surgical History / Comment(s): wisdom teeth removal, colonoscopy and egd, IUD, kidney surgery Past Anesthesia/Blood Transfusion Reactions: Postoperative Nausea & Vomiting ( PONV) Past Psychological History: No Psychological Hx Reported Smoking Status: Former smoker Past Alcohol Use History: None Reported Past Drug Use History: None Reported - Past Family History Mother Family Medical History: Hypertension Additional Family Medical History / Comment(s): hypoglycemic Medications and Allergies Home Medications Medication Instructions Recorded Confirmed Type Lisinopril [Zestril] 5 mg PO DAILY 02/22/18 02/22/18 History Orphenadrine [Norflex] 100 mg PO BID PRN 02/22/18 02/22/18 History Phenazopyridine [Pyridium] 200 mg PO TID 02/22/18 02/22/18 History Tamsulosin HCl [Flomax] 0.4 mg PO BID 02/22/18 02/22/18 History Allergies Allergy/AdvReac Type Severity Reaction Status Date / Time iodine Allergy Rash/Hives Verified 02/22/18 16:51 shellfish derived [Shellfish] Allergy Anaphylaxis Verified 02/22/18 16:51 prednisone AdvReac Severe Increased Verified 02/22/18 16:51 Blood Pressure Physical Exam Vitals: Vital Signs Temp Pulse Pulse Resp BP BP Pulse Ox 02/23/18 07:17 97.7 F 60 16 120/71 98 02/23/18 04:39 98.0 F 62 15 118/69 97 02/23/18 03:24 15 02/23/18 02:32 97.6 F 72 15 130/87 98 02/23/18 02:00 67 129/68 97 02/23/18 01:00 64 18 121/65 96 02/23/18 00:00 62 16 141/68 99 02/22/18 22:00 133/81 02/22/18 21:44 66 16 133/81 100 02/22/18 19:14 74 169/97 100 02/22/18 19:00 80 175/80 100 02/22/18 18:30 173/83 02/22/18 18:00 188/101 100 02/22/18 16:30 98.4 F 71 18 151/80 100 Intake and Output 02/22/18 02/23/18 02/23/18 22:59 06:59 14:59 Other: Voiding Method Toilet # Voids 2 Weight 94.347 kg 94.347 kg Results 02/22/18 17:49 02/22/18 17:49 Cardiac Enzymes 02/22/18 02/22/18 02/23/18 Range/Units 17:49 17:49 02:57 AST 26 (14-36) U/L CK-MB (CK-2) 1.1 0.9 (0.0-2.4) ng/mL Troponin I <0.012 <0.012 (0.000-0.034) ng/mL Coagulation 02/22/18 Range/Units 17:49 PT 9.4 (9.0-12.0) sec APTT 24.0 (22.0-30.0) sec CBC 02/22/18 Range/Units 17:49 WBC 7.5 (3.8-10.6) k/uL RBC 4.99 (3.80-5.40) m/uL Hgb 14.4 (11.4-16.0) gm/dL Hct 43.3 (34.0-46.0) % Plt Count 335 (150-450) k/uL Comprehensive Metabolic Panel 02/22/18 Range/Units 17:49 Sodium 139 (137-145) mmol/L Potassium 4.0 (3.5-5.1) mmol/L Chloride 105 (98-107) mmol/L Carbon Dioxide 25 (22-30) mmol/L BUN 15 (7-17) mg/dL Creatinine 0.59 (0.52-1.04) mg/dL Glucose 88 (74-99) mg/dL Calcium 9.8 (8.4-10.2) mg/dL AST 26 (14-36) U/L ALT 33 (9-52) U/L Alkaline Phosphatase 99 (38-126) U/L Total Protein 7.8 (6.3-8.2) g/dL Albumin 4.4 (3.5-5.0) g/dL Current Medications Generic Name Dose Route Start Last Admin Trade Name Freq PRN Reason Stop Dose Admin Acetaminophen 650 mg 02/23/18 00:01 Tylenol Tab PO Q4HR PRN Pain Cyclobenzaprine HCl 10 mg 02/23/18 00:04 Flexeril PO BID PRN Muscle Spasm Enoxaparin Sodium 40 mg 02/23/18 09:00 02/23/18 09:23 Lovenox SQ Not Given DAILY [facility] Lisinopril 5 mg 02/23/18 09:00 02/23/18 09:21 Zestril PO 5 mg DAILY [facility] Administration Metoprolol Tartrate 25 mg 02/23/18 09:00 02/23/18 09:21 Lopressor PO 25 mg BID [facility] Administration Morphine Sulfate 2 mg 02/23/18 00:01 Morphine Sulfate (Inj) IVP Q3H PRN Chest Pain Nitroglycerin 0.4 mg 02/23/18 00:01 Nitrostat SUBLINGUAL Q5M PRN Chest Pain Phenazopyridine HCl 200 mg 02/23/18 09:00 Pyridium PO TID [facility] Tamsulosin HCl 0.4 mg 02/23/18 09:00 02/23/18 09:21 Flomax PO 0.4 mg BID [facility] Administration Intake and Output 02/22/18 02/23/18 02/23/18 22:59 06:59 14:59 Other: Voiding Method Toilet # Voids 2 Weight 94.347 kg 94.347 kg 02/22/18 17:49 02/22/18 17:49 <Beth Alston - Last Filed: 02/23/18 10:09> History of Present Illness History of present illness: This is a 42-year-old female past medical history significant for chronic kidney stones, asthma, lupus and chronic kidney disease. She denies history of coronary artery disease or hypertension. She takes lisinopril daily on recommendations from her ditch rider. She states she follows at [facility] for chronic kidney stones and is having a procedure tomorrow for removal of excessive calcium buildup. She is unsure of the name but states it is not a lithotripsy. We have been asked to see her in consultation for chest pain. She states yesterday while she was babysitting her niece she started having pain in the left upper quadrant of her abdomen with radiation to the left flank region, lower abdomen and mid-sternal region. She also started feeling very nauseated and vomited multiple times as well as multiple bouts of diarrhea. She denies palpitations, shortness of breath or dizziness. At the time of my exam she is acutely tender in the left upper quadrant. EKG reveals sinus mechanism with no acute ST or T-wave abnormalities. Chest x-ray negative for acute cardiopulmonary process. KUB x-ray negative for acute process. CT of the abdomen and pelvis negative for an acute process. CTA chest negative for pulmonary embolism and no other acute process seen. Laboratory data reviewed, hemoglobin 14.4, platelets 335, d-dimer 1.14, sodium 139, potassium 4.0, creatinine 0.59, cardiac enzymes negative 2. Current cardiac medications include lisinopril 5 mg daily. She also takes Pyridium, Flomax and Norflex. At the time of my exam: CONSTITUTIONAL: Denies fever. Denies chills. EYES: Denies blurred vision. Denies vision changes. Denies eye pain. EARS, NOSE, MOUTH & THROAT: Denies headache. Denies sore throat. Denies ear pain. CARDIOVASCULAR: Denies chest pain. Denies shortness of breath. Denies orthopnea. Denies PND. Denies palpitations. RESPIRATORY: Denies cough. GASTROINTESTINAL: Complains of abdominal pain. Complains of diarrhea. Denies constipation. Complains of nausea. Denies vomiting. MUSCULOSKELETAL: Denies myalgias. INTEGUMENTARY: Denies pruitis. Denies rash. NEUROLOGIC: Denies numbness. Denies tingling. Denies weakness. PSYCHIATRIC: Denies anxiety. Denies depression. ENDOCRINE: Denies fatigue. Denies weight change. Denies polydipsia. Denies polyurina. GENITOURINARY: Denies burning, hematuria or urgency with micturation. HEMATOLOGIC: Denies history of anemia. Denies bleeding. Blood pressure 120/71 heart rate 68 afebrile maintaining oxygen saturation on room air GENERAL: This is a 42-year-old female in no apparent distress at the time of my examination. Crying. HEENT: Head is atraumatic, normocephalic. Pupils are equal, round. Sclerae anicteric. Conjunctivae are clear. Mucous membranes of the mouth are moist. Neck is supple. There is no jugular venous distention. No carotid bruit is heard. LUNGS: Clear to auscultation no wheezes, rales or rhonchi. No chest wall tenderness is noted on palpation or with deep breathing. HEART: Regular rate and rhythm without murmurs, rubs or gallops. S1 and S2 heard. ABDOMEN: Soft, tender right upper quadrant. Bowel sounds are heard. No organomegaly noted. EXTREMITIES: No evidence of peripheral edema and no calf tenderness noted. VASCULAR: Radial and dorsalis pedis pulses palpated, no evidence of clubbing. NEUROLOGIC: Patient is awake, alert and oriented x3. ASSESSMENT Left flank pain with radiation to the midsternal region. Atypical for angina. An acute coronary event has been ruled out. PLAN An acute coronary event has been ruled out with no EKG evidence of ischemia and negative cardiac enzymes. Ongoing medical management. Flank and abdominal discomfort. Thank you kindly for this consultation. Nurse Practitioner note has been reviewed, I agree with a documented findings and plan of care. Patient was seen and examined. Physical Exam Vitals: Vital Signs Temp Pulse Pulse Resp BP BP Pulse Ox 02/23/18 07:17 97.7 F 60 16 120/71 98 02/23/18 04:39 98.0 F 62 15 118/69 97 02/23/18 03:24 15 02/23/18 02:32 97.6 F 72 15 130/87 98 02/23/18 02:00 67 129/68 97 02/23/18 01:00 64 18 121/65 96 02/23/18 00:00 62 16 141/68 99 02/22/18 22:00 133/81 02/22/18 21:44 66 16 133/81 100 02/22/18 19:14 74 169/97 100 02/22/18 19:00 80 175/80 100 02/22/18 18:30 173/83 02/22/18 18:00 188/101 100 02/22/18 16:30 98.4 F 71 18 151/80 100 Intake and Output 02/22/18 02/23/18 02/23/18 22:59 06:59 14:59 Other: Voiding Method Toilet # Voids 2 Weight 94.347 kg 94.347 kg Results 02/22/18 17:49 02/22/18 17:49 Cardiac Enzymes 02/22/18 02/22/18 02/23/18 Range/Units 17:49 17:49 02:57 AST 26 (14-36) U/L CK-MB (CK-2) 1.1 0.9 (0.0-2.4) ng/mL Troponin I <0.012 <0.012 (0.000-0.034) ng/mL Coagulation 02/22/18 Range/Units 17:49 PT 9.4 (9.0-12.0) sec APTT 24.0 (22.0-30.0) sec CBC 02/22/18 Range/Units 17:49 WBC 7.5 (3.8-10.6) k/uL RBC 4.99 (3.80-5.40) m/uL Hgb 14.4 (11.4-16.0) gm/dL Hct 43.3 (34.0-46.0) % Plt Count 335 (150-450) k/uL Comprehensive Metabolic Panel 02/22/18 Range/Units 17:49 Sodium 139 (137-145) mmol/L Potassium 4.0 (3.5-5.1) mmol/L Chloride 105 (98-107) mmol/L Carbon Dioxide 25 (22-30) mmol/L BUN 15 (7-17) mg/dL Creatinine 0.59 (0.52-1.04) mg/dL Glucose 88 (74-99) mg/dL Calcium 9.8 (8.4-10.2) mg/dL AST 26 (14-36) U/L ALT 33 (9-52) U/L Alkaline Phosphatase 99 (38-126) U/L Total Protein 7.8 (6.3-8.2) g/dL Albumin 4.4 (3.5-5.0) g/dL Current Medications Generic Name Dose Route Start Last Admin Trade Name Freq PRN Reason Stop Dose Admin Acetaminophen 650 mg 02/23/18 00:01 Tylenol Tab PO Q4HR PRN Pain Cyclobenzaprine HCl 10 mg 02/23/18 00:04 Flexeril PO BID PRN Muscle Spasm Enoxaparin Sodium 40 mg 02/23/18 09:00 02/23/18 09:23 Lovenox SQ Not Given DAILY [facility] Lisinopril 5 mg 02/23/18 09:00 02/23/18 09:21 Zestril PO 5 mg DAILY [facility] Administration Metoprolol Tartrate 25 mg 02/23/18 09:00 02/23/18 09:21 Lopressor PO 25 mg BID [facility] Administration Morphine Sulfate 2 mg 02/23/18 00:01 Morphine Sulfate (Inj) IVP Q3H PRN Chest Pain Nitroglycerin 0.4 mg 02/23/18 00:01 Nitrostat SUBLINGUAL Q5M PRN Chest Pain Phenazopyridine HCl 200 mg 02/23/18 09:00 Pyridium PO TID [facility] Tamsulosin HCl 0.4 mg 02/23/18 09:00 02/23/18 09:21 Flomax PO 0.4 mg BID [facility] Administration Intake and Output 02/22/18 02/23/18 02/23/18 22:59 06:59 14:59 Other: Voiding Method Toilet # Voids 2 Weight 94.347 kg 94.347 kg 02/22/18 17:49 02/22/18 17:49
[2018-02-23] MEDS ORDERED: ONDANSETRON 4 MG/2 ML VIAL IVP PRN (09:57)
[2018-02-23] MEDS: MORPHINE SULFATE 2 MG/ML SYRINGE IVP PRN ×2 (10:22→10:27)
[2018-02-23] MEDS ORDERED: FAMOTIDINE 20 MG/2 ML VIAL IV SCH (10:30)
--- NOTE | 2018-02-23 11:26 | P.HPIM ---
History of Present Illness H&P Date: 02/23/18 Chief Complaint: abdominal pain, flank pain 42-year-old female who presented to the emergency room on 02/22/2018 with a chief complaint of left flank pain, abdominal pain, and chest pain. The patient states about 2 nights ago she started experiencing some epigastric pain and initially thought she was having some anxiety due to some personal issues. She states that her epigastric pain has continued and she is also been having left flank pain that radiates to her left upper and lower quadrant of her abdomen. She reports having nausea and vomiting. She also reports having multiple episodes of diarrhea. The patient has a history of appendectomy and cholecystectomy. She denies sick contacts in the family. She reports that she has seen Dr. Merchant in the past and has undergone EGD and colonoscopy. The patient reports she also has a history of a small hiatal hernia which has not been giving her any problems for the last several years. The patient states she was having pain on the left side of her chest. She denied shortness of breath. Denied fever or chills. EKG was without acute changes. Troponins have been negative 2. The patient was evaluated by cardiology and an acute coronary event has been ruled out. Chest x-ray was negative for acute process. KUB x-ray was negative for acute process. Patient's d-dimer was elevated and she underwent a CTA of the chest which was negative for pulmonary embolus. The patient also had a CT of the abdomen and pelvis which revealed a few scattered 5 and 6 mm bilateral nonobstructing stones. No hydronephrosis. No acute process was visualized on computed tomography scan. The patient reports she has a history of "chronic calcium buildup" in her kidneys. She is scheduled for surgery tomorrow with Dr. Mumtaz Fletcher at [facility] to removal the stones in bilateral kidneys. She does not recall the name of the procedure. She reports she had this same procedure performed on her bilateral kidneys 26 months ago and a month prior to that she had the left side performed as well. The patient was seen and examined at the bedside in the observation unit. The patient is sitting in the chair and is currently sobbing. The patient reports pain to her left flank region. Left flank region is extremely tender and painful upon palpation. Patient does complain of some generalized abdominal pain but reports the majority of her pain is in the epigastric region. She states it feels like "somebody has their fist in there and is trying to rip it out". The patient denies history of GERD. She has not had any further episodes of emesis. Review of Systems Those systems with pertinent positive or pertinent negative responses have been documented in the HPI Past Medical History Past Medical History: Asthma, Chest Pain / Angina, Liver Disease Additional Past Medical History / Comment(s): polycystic kidneys, lupus, heart murmur, pleurisy, elevated liver enzymes History of Any Multi-Drug Resistant Organisms: None Reported Past Surgical History: Appendectomy, Cholecystectomy, Tonsillectomy Additional Past Surgical History / Comment(s): wisdom teeth removal, colonoscopy and egd, IUD, kidney surgery Past Anesthesia/Blood Transfusion Reactions: Postoperative Nausea & Vomiting ( PONV) Past Psychological History: No Psychological Hx Reported Smoking Status: Former smoker Past Alcohol Use History: None Reported Past Drug Use History: None Reported - Past Family History Mother Family Medical History: Hypertension Additional Family Medical History / Comment(s): hypoglycemic Medications and Allergies Home Medications Medication Instructions Recorded Confirmed Type Lisinopril [Zestril] 5 mg PO DAILY 02/22/18 02/22/18 History Orphenadrine [Norflex] 100 mg PO BID PRN 02/22/18 02/22/18 History Phenazopyridine [Pyridium] 200 mg PO TID 02/22/18 02/22/18 History Tamsulosin HCl [Flomax] 0.4 mg PO BID 02/22/18 02/22/18 History Allergies Allergy/AdvReac Type Severity Reaction Status Date / Time iodine Allergy Rash/Hives Verified 02/22/18 16:51 shellfish derived [Shellfish] Allergy Anaphylaxis Verified 02/22/18 16:51 prednisone AdvReac Severe Increased Verified 02/22/18 16:51 Blood Pressure Physical Exam Vitals: Vital Signs Temp Pulse Pulse Resp BP BP Pulse Ox 02/23/18 07:17 97.7 F 60 16 120/71 98 02/23/18 04:39 98.0 F 62 15 118/69 97 02/23/18 03:24 15 02/23/18 02:32 97.6 F 72 15 130/87 98 02/23/18 02:00 67 129/68 97 02/23/18 01:00 64 18 121/65 96 02/23/18 00:00 62 16 141/68 99 02/22/18 22:00 133/81 02/22/18 21:44 66 16 133/81 100 02/22/18 19:14 74 169/97 100 02/22/18 19:00 80 175/80 100 02/22/18 18:30 173/83 02/22/18 18:00 188/101 100 02/22/18 16:30 98.4 F 71 18 151/80 100 Intake and Output 02/22/18 02/23/18 02/23/18 22:59 06:59 14:59 Other: Voiding Method Toilet # Voids 2 Weight 94.347 kg 94.347 kg - Constitutional General appearance: cooperative, obese - Respiratory Respiratory: bilateral: CTA, negative: rales, rhonchi, wheezing - Cardiovascular Rhythm: regular Heart sounds: normal: S1, S2 - Gastrointestinal Epigastric tenderness. Left flank pain upon palpation General gastrointestinal: normal bowel sounds, tenderness - Integumentary Integumentary: normal - Neurologic Neurologic: CNII-XII intact - Musculoskeletal Musculoskeletal: gait normal, strength equal bilaterally - Psychiatric Psychiatric: A&O x's 3 Results CBC & Chem 7: 02/22/18 17:49 02/22/18 17:49 Labs: Abnormal Lab Results - Last 24 Hours (Table) 02/22/18 02/22/18 Range/Units 17:49 17:49 D-Dimer 1.14 H (<0.60) mg/L FEU Ur Leukocyte Esterase Trace H (Negative) Thrombosis Risk Factor Assmnt - Choose All That Apply Each Factor Represents 1 point: Obesity (BMI >25) Thrombosis Risk Factor Assessment Total Risk Factor Score: 1 Thrombosis Risk Factor Assessment Level: Low Risk Assessment and Plan Plan: ASSESSMENT: Left-sided chest pain, troponin negative x2, acute coronary syndrome ruled out Epigastric pain, etiology unclear, rule out GERD/PUD/gastritis History of lupus History of chronic nephrolithiasis with previous surgeries at [facility] Left flank pain, secondary to above Obesity: BMI 36.8 PLAN: Cardiology on consult. Appreciate recommendations and input Pain control. Patient unable to have NSAIDs due to scheduled procedure tomorrow at [facility]. Offered patient a dose of IV steroids but states she is unable to tolerate steroids as it severely elevates her blood pressure and she states she almost had a stroke from having steroids in the past. Patient will be given a dose of morphine to trial Zofran Pepcid Maalox IVF at 100cc/hr Consult Dr. Merchant for evaluation of epigastric pain Home meds as appropriate Monitor vital signs and address as appropriate Further recommendations pending patient's course If patient is cleared by general surgery and pain is tolerable, she may be discharged home this afternoon so she may have her procedure performed tomorrow at [facility] and can follow up outpatient Nurse practitioner note has been reviewed by physician. Signing provider agrees with the documented findings, assessment, and plan of care.
[2018-02-23] MEDS ORDERED: SODIUM CHLORIDE 0.9% 1,000 ML IV SCH (11:30)
[2018-02-23 12:08] VITALS: BP 132/80; PULSE 53; TEMP 98.6
[2018-02-23] MEDS ORDERED: MORPHINE ORAL SOLN 10 MG/5 ML CUP PO PRN (12:58)
[2018-02-23] MEDS ORDERED: MAG HYDROX/AL HYDROX/SIMETH 30 ML CUP PO SCH (13:00)
[2018-02-23 13:01] LABS: Creatine Kinase 96 U/L (30-135)
--- NOTE | 2018-02-23 13:13 | P.GSCN ---
History of Present Illness Consult date: 02/23/18 Reason for Consult: Abdominal pain History of present illness: Patient hospitalized with complaints of chest and epigastric abdominal pain. The pain does radiate to the left flank. Patient ironically is scheduled tomorrow for a percutaneous nephrolithotomy. She is having episodes of nausea and bilious emesis. Better today. Tolerating diet currently. Labs looked normal. CAT scan was reviewed and shows no definite abnormalities. Patient does have a history of previous pancreatitis although her enzymes are normal. Denies rectal bleeding or melena. She would like to go home in order to keep her appointment at the [facility] for her procedure tomorrow. Review of Systems The patient denies any acute changes in vision or hearing, no dysphagia or odynophagia, no chest pain or shortness of breath, no dysuria or hematuria, no headache, no runny nose, no rectal bleeding or melena, no unexplained weight loss Past Medical History Past Medical History: Asthma, Chest Pain / Angina, Liver Disease Additional Past Medical History / Comment(s): polycystic kidneys, lupus, heart murmur, pleurisy, elevated liver enzymes History of Any Multi-Drug Resistant Organisms: None Reported Past Surgical History: Appendectomy, Cholecystectomy, Tonsillectomy Additional Past Surgical History / Comment(s): wisdom teeth removal, colonoscopy and egd, IUD, kidney surgery Past Anesthesia/Blood Transfusion Reactions: Postoperative Nausea & Vomiting ( PONV) Past Psychological History: No Psychological Hx Reported Smoking Status: Former smoker Past Alcohol Use History: None Reported Past Drug Use History: None Reported - Past Family History Mother Family Medical History: Hypertension Additional Family Medical History / Comment(s): hypoglycemic Medications and Allergies Home Medications Medication Instructions Recorded Confirmed Type Lisinopril [Zestril] 5 mg PO DAILY 02/22/18 02/22/18 History Orphenadrine [Norflex] 100 mg PO BID PRN 02/22/18 02/22/18 History Phenazopyridine [Pyridium] 200 mg PO TID 02/22/18 02/22/18 History Tamsulosin HCl [Flomax] 0.4 mg PO BID 02/22/18 02/22/18 History Allergies Allergy/AdvReac Type Severity Reaction Status Date / Time iodine Allergy Rash/Hives Verified 02/22/18 16:51 shellfish derived [Shellfish] Allergy Anaphylaxis Verified 02/22/18 16:51 prednisone AdvReac Severe Increased Verified 02/22/18 16:51 Blood Pressure Surgical - Exam Vital Signs Temp Pulse Resp BP Pulse Ox 98.4 F 71 18 151/80 100 02/22/18 16:30 02/22/18 16:30 02/22/18 16:30 02/22/18 16:30 02/22/18 16:30 Physical exam: General: Well-developed, well-nourished HEENT: Normocephalic, sclerae nonicteric Abdomen: Mild epigastric tenderness, nondistended Extremities: No edema Neuro: Alert and oriented Results - Labs 02/22/18 17:49 02/22/18 17:49 Abnormal Lab Results - Last 24 Hours (Table) 02/22/18 02/22/18 Range/Units 17:49 17:49 D-Dimer 1.14 H (<0.60) mg/L FEU Ur Leukocyte Esterase Trace H (Negative) Diabetes panel 02/22/18 Range/Units 17:49 Sodium 139 (137-145) mmol/L Potassium 4.0 (3.5-5.1) mmol/L Chloride 105 (98-107) mmol/L Carbon Dioxide 25 (22-30) mmol/L BUN 15 (7-17) mg/dL Creatinine 0.59 (0.52-1.04) mg/dL Glucose 88 (74-99) mg/dL Calcium 9.8 (8.4-10.2) mg/dL AST 26 (14-36) U/L ALT 33 (9-52) U/L Alkaline Phosphatase 99 (38-126) U/L Total Protein 7.8 (6.3-8.2) g/dL Albumin 4.4 (3.5-5.0) g/dL Calcium panel 02/22/18 Range/Units 17:49 Calcium 9.8 (8.4-10.2) mg/dL Albumin 4.4 (3.5-5.0) g/dL Pituitary panel 02/22/18 Range/Units 17:49 Sodium 139 (137-145) mmol/L Potassium 4.0 (3.5-5.1) mmol/L Chloride 105 (98-107) mmol/L Carbon Dioxide 25 (22-30) mmol/L BUN 15 (7-17) mg/dL Creatinine 0.59 (0.52-1.04) mg/dL Glucose 88 (74-99) mg/dL Calcium 9.8 (8.4-10.2) mg/dL Adrenal panel 02/22/18 Range/Units 17:49 Sodium 139 (137-145) mmol/L Potassium 4.0 (3.5-5.1) mmol/L Chloride 105 (98-107) mmol/L Carbon Dioxide 25 (22-30) mmol/L BUN 15 (7-17) mg/dL Creatinine 0.59 (0.52-1.04) mg/dL Glucose 88 (74-99) mg/dL Calcium 9.8 (8.4-10.2) mg/dL Total Bilirubin 0.8 (0.2-1.3) mg/dL AST 26 (14-36) U/L ALT 33 (9-52) U/L Alkaline Phosphatase 99 (38-126) U/L Total Protein 7.8 (6.3-8.2) g/dL Albumin 4.4 (3.5-5.0) g/dL Assessment and Plan (1) Abdominal pain Narrative/Plan: Patient with epigastric and chest pain. Etiology unclear. May be on the basis of underlying nephrolithiasis however. If the patient tolerates her diet I would be comfortable with her being discharged to follow-up at the [facility] tomorrow for her nephrology procedure. She needs to follow-up with me in the office as an outpatient if her symptoms persist. Current Visit: Yes Status: Acute Code(s): R10.9 - UNSPECIFIED ABDOMINAL PAIN SNOMED Code(s): 30514402
[2018-02-23 13:15] LABS: Creatine Kinase MB 0.9 ng/mL (0.0-2.4); Troponin I <0.012 ng/mL (0.000-0.034)
--- NOTE | 2018-02-23 14:13 | P.DS ---
Providers Date of admission: 02/22/18 23:59 Expected date of discharge: 02/23/18 Attending physician: Dony García Consults: 02/23/18 00:01 Consult Physician Urgent Consulting Provider: Melvin Lopez Consult Reason/Comments: cp Do you want consulting provider notified?: Yes 02/23/18 10:27 Consult Physician Urgent Consulting Provider: Tyrone Merchant Consult Reason/Comments: abdominal/epigastric pain Do you want consulting provider notified?: Yes Primary care physician: [facility] Course: 2-year-old female who presented to the emergency room on 02/22/2018 with a chief complaint of left flank pain, abdominal pain, and chest pain. The patient states about 2 nights ago she started experiencing some epigastric pain and initially thought she was having some anxiety due to some personal issues. She states that her epigastric pain has continued and she is also been having left flank pain that radiates to her left upper and lower quadrant of her abdomen. She reports having nausea and vomiting. She also reports having multiple episodes of diarrhea. The patient has a history of appendectomy and cholecystectomy. She denies sick contacts in the family. She reports that she has seen Dr. Merchant in the past and has undergone EGD and colonoscopy. The patient reports she also has a history of a small hiatal hernia which has not been giving her any problems for the last several years. The patient states she was having pain on the left side of her chest. She denied shortness of breath. Denied fever or chills. EKG was without acute changes. Troponins have been negative 2. The patient was evaluated by cardiology and an acute coronary event has been ruled out. Chest x-ray was negative for acute process. KUB x-ray was negative for acute process. Patient's d-dimer was elevated and she underwent a CTA of the chest which was negative for pulmonary embolus. The patient also had a CT of the abdomen and pelvis which revealed a few scattered 5 and 6 mm bilateral nonobstructing stones. No hydronephrosis. No acute process was visualized on computed tomography scan. The patient reports she has a history of "chronic calcium buildup" in her kidneys. She is scheduled for surgery tomorrow with Dr. Mumtaz Fletcher at of to removal the stones in bilateral kidneys. She does not recall the name of the procedure. She reports she had this same procedure performed on her bilateral kidneys 26 months ago and a month prior to that she had the left side performed as well. The patient was seen and examined at the bedside in the observation unit. The patient is sitting in the chair and is currently sobbing. The patient reports pain to her left flank region. Left flank region is extremely tender and painful upon palpation. Patient does complain of some generalized abdominal pain but reports the majority of her pain is in the epigastric region. She states it feels like "somebody has their fist in there and is trying to rip it out". The patient denies history of GERD. She has not had any further episodes of emesis. Gen. surgery was consulted to evaluate patient. Patient was evaluated by Dr. Merchant. No intervention was recommended at this time. General surgery recommended for patient to follow up outpatient if her symptoms persist. The patient was deemed stable for discharge. She is instructed to take Tylenol as needed for pain. She is to follow up on an outpatient basis. DISCHARGE DIAGNOSIS: Left-sided chest pain, troponin negative x2, acute coronary syndrome ruled out Epigastric pain, etiology unclear, patient to follow up outpatient with Dr. Merchant if symptoms persist History of lupus History of chronic nephrolithiasis with [facility] Left flank pain, secondary to above Obesity: BMI 36.8 Nurse practitioner note has been reviewed by physician. Signing provider agrees with the documented findings, assessment, and plan of care. Patient Condition at Discharge: Stable Plan - Discharge Summary New Discharge Prescriptions: Continue Tamsulosin HCl [Flomax] 0.4 mg PO BID Phenazopyridine [Pyridium] 200 mg PO TID Orphenadrine [Norflex] 100 mg PO BID PRN PRN Reason: Muscle Spasm Lisinopril [Zestril] 5 mg PO DAILY Discharge Medication List Lisinopril [Zestril] 5 mg PO DAILY 02/22/18 [History] Orphenadrine [Norflex] 100 mg PO BID PRN 02/22/18 [History] Phenazopyridine [Pyridium] 200 mg PO TID 02/22/18 [History] Tamsulosin HCl [Flomax] 0.4 mg PO BID 02/22/18 [History] Follow up Appointment(s)/Referral(s): Tyrone Merchant MD [Medical Doctor] - 1 Week Herman Painting Jr, DO [Doctor of Osteopathic Medicine] - 1 Week Discharge Disposition: HOME SELF-CARE
[2018-02-24] MEDS ORDERED: ASPIRIN 325 MG TAB PO SCH (09:00)
== END 2018-02-23 14:57 | disposition home or self-care (01) ==
LOC: EC 16:14 → 1SOBS 23:59
PROVIDERS: ADMIT Family Medicine; ATTEND Family Medicine
DX: R07.89 Other chest pain (principal); R10.84 Generalized abdominal pain; R10.12 Left upper quadrant pain; R10.11 Right upper quadrant pain; R10.13 Epigastric pain; R11.2 Nausea with vomiting, unspecified; R19.7 Diarrhea, unspecified; R79.89 Other specified abnormal findings of blood chemistry; N20.0 Calculus of kidney; Q61.3 Polycystic kidney, unspecified; N18.9 Chronic kidney disease, unspecified; Q44.6 Cystic disease of liver; M32.9 Systemic lupus erythematosus, unspecified; Z87.442 Personal history of urinary calculi; E66.9 Obesity, unspecified; Z68.36 Body mass index [BMI] 36.0-36.9, adult; Z90.49 Acquired absence of other specified parts of digestive tract; Z87.891 Personal history of nicotine dependence; Z82.49 Family history of ischemic heart disease and other diseases of the circulatory system; Z79.899 Other long term (current) drug therapy; Z91.013 Allergy to seafood; Z88.8 Allergy status to other drugs, medicaments and biological substances; Z91.048 Other nonmedicinal substance allergy status
CPT/HCPCS: 99285; 96361 ×2; 96374 ×2; 96376 ×3; 96375 ×5; 36415; 93005; 85379; 80053; 82150; 82550 ×2; 82553 ×2; 83690; 84484 ×2; 85025; 85610; 85730; 81001; 71046; 74018; 71275; 74177; G0378 ×2; J2270 ×2; J1200; J2405 ×2; J1170; Q9967

== ENCOUNTER 2018-10-05 22:00 | Emergency (ER) | payer OTHER ==
[2018-10-05 22:19] VITALS: BP 140/82; PULSE 63; RESP 17; TEMP 97.9
[2018-10-05] MEDS ORDERED: GENTAMICIN 0.3% OPHTH DROPS 5 ML BTL LEFT EYE STA (22:43)
--- NOTE | 2018-10-05 22:46 | ED ---
Eye Problem HPI - General Chief complaint: Eye Problems Stated complaint: Eye Problems Time Seen by Provider: 10/05/18 22:24 Source: patient Mode of arrival: ambulatory Limitations: no limitations - History of Present Illness Initial comments: 42yo female presenting today for cc of left eye irritation. States she was riding bike earlier felt like something flew into her eye. Pt is CL wearer. Patient statess that her left lid is swollen and the eye continues to feel irritated. Patietn denies vision loss, headaches, nausea, vomiting or any other symptoms. Remaining ROS (-). Patient wearing glasses upon arrival. - Related Data Home Medications Medication Instructions Recorded Confirmed Orphenadrine [Norflex] 100 mg PO BID PRN 02/22/18 03/07/18 Tamsulosin HCl [Flomax] 0.4 mg PO BID 02/22/18 03/07/18 Previous Rx's Medication Instructions Recorded Azithromycin [Zithromax] 500 mg PO DAILY 2 Days #2 tab 03/08/18 Cefuroxime Axetil [Ceftin] 500 mg PO BID #14 tab 03/08/18 Gentamicin 0.3% Ophth Soln 1 drops BOTH EYES Q4HR 5 Days #1 10/05/18 [Garamycin 0.3% Ophth Soln] bottle Allergies Allergy/AdvReac Type Severity Reaction Status Date / Time iodine Allergy Rash/Hives Verified 10/05/18 22:18 shellfish derived [Shellfish] Allergy Anaphylaxis Verified 10/05/18 22:18 prednisone AdvReac Severe Increased Verified 10/05/18 22:18 Blood Pressure Review of Systems ROS Statement: Those systems with pertinent positive or pertinent negative responses have been documented in the HPI. ROS Other: All systems not noted in ROS Statement are negative. Past Medical History Past Medical History: Asthma, Chest Pain / Angina, Liver Disease Additional Past Medical History / Comment(s): polycystic kidneys, lupus, heart murmur, pleurisy, elevated liver enzymes History of Any Multi-Drug Resistant Organisms: None Reported Past Surgical History: Appendectomy, Cholecystectomy, Tonsillectomy Additional Past Surgical History / Comment(s): wisdom teeth removal, colonoscopy and egd, IUD, kidney surgery Past Anesthesia/Blood Transfusion Reactions: Postoperative Nausea & Vomiting (PONV) Past Psychological History: No Psychological Hx Reported Smoking Status: Former smoker Past Alcohol Use History: None Reported Past Drug Use History: Marijuana - Past Family History Mother Family Medical History: Hypertension Additional Family Medical History / Comment(s): hypoglycemic General Exam - General Exam Comments Initial Comments: General: The patient is awake and alert, in no distress, and does not appear acutely ill. Eye: +3mm pupils are equal, round and reactive to light, extra-ocular movements are intact. No pain with EOM. No nystagmus. There is normal conjunctiva bilaterally. No signs of icterus. No foreign body or fluorescein uptake of the foreskin examination. Upper lid was flipped no evidence of foreign body. Mild left upper lid swelling no surrounding erythema of the orbits. IOP 10 OS, OD. Ears, nose, mouth and throat: There are moist mucous membranes and no oral lesions. Neck: The neck is supple, there is no tenderness or JVD. Cardiovascular: There is a regular rate and rhythm. No murmur, rub or gallop is appreciated. Respiratory: Lungs are clear to auscultation, respirations are non-labored, breath sounds are equal. No wheezes, stridor, rales, or rhonchi. Musculoskeletal: Normal ROM, no tenderness. Strength 5/5. Sensation intact. Pulses equal bilaterally 2+. Neurological: A&O x 3. CN II-XII intact, There are no obvious motor or sensory deficits. Coordination appears grossly intact. Speech is normal. Skin: Skin is warm and dry and no rashes or lesions are noted. Psychiatric: Cooperative, appropriate mood & affect, normal judgment. Limitations: no limitations Course Vital Signs 10/05/18 22:15 Temperature 97.9 F Pulse Rate 63 Respiratory 17 Rate Blood Pressure 140/82 O2 Sat by Pulse 100 Oximetry Medical Decision Making - Medical Decision Making 42yo female presenting today for cc of left eye irritations wears Contact lenses. felt something in eye earlier on bike ride. exam revealed no FB or obvious corneal abrasion. No ulcers. IOP WNL. No conjunctival injection. Patient be started on gentimicin given CL wearer and concern for superficial abrasion with history. Patient is to f/u with neurology. Return parameters were discussed at length the patient patient verbalizes understanding. Patient is discharged in stable condition appearing well after discussing the case attending provider Dr. Wade Disposition Clinical Impression: Irritation of left eye Disposition: HOME SELF-CARE Condition: Good Instructions (If sedation given, give patient instructions): Eye Foreign Body (ED) Additional Instructions: Please use medication as discussed. Please follow-up with ophthalmology in the next 24 hours. Please return to emergency room if the symptoms increase or worsen or for any other concerns. Prescriptions: Gentamicin 0.3% Ophth Soln [Garamycin 0.3% Ophth Soln] 1 drops BOTH EYES Q4HR 5 Days #1 bottle Is patient prescribed a controlled substance at d/c from ED?: No Referrals: Dony García MD [Primary Care Provider] - 1-2 days Trina Kumar MD [STAFF PHYSICIAN] - 1-2 days Time of Disposition: 22:46
== END 2018-10-05 23:06 | disposition home or self-care (01) ==
LOC: EC 22:00
DX: H57.89 Other specified disorders of eye and adnexa (principal); Z79.899 Other long term (current) drug therapy; Z87.891 Personal history of nicotine dependence; Z91.013 Allergy to seafood; Z91.048 Other nonmedicinal substance allergy status; Z88.8 Allergy status to other drugs, medicaments and biological substances
CPT/HCPCS: 99283

== ENCOUNTER 2018-10-15 14:25 | Emergency (ER) | payer OTHER ==
[2018-10-15 14:33] VITALS: PULSE 87
[2018-10-15] MEDS ORDERED: DIPH,PERTUS(ACELL)TETVAC-LF 0.5 ML VIAL IM ONE (14:59)
[2018-10-15] MEDS ORDERED: SODIUM CHLORIDE 0.9% IRRIG 1,000 ML BTL IRRIGATION ONE (15:01)
[2018-10-15] MEDS ORDERED: LIDOCAINE 1% INJ 10MG/ML (20 ML MDV) SQ ONE (15:01)
[2018-10-15] MEDS ORDERED: ACET/COD 300 MG/30 MG STARTER PACK 6 TAB BTL PO STA (15:11)
[2018-10-15] MEDS ORDERED: AMOXIC-POT CLAV 875MG STARTER 2 EACH TABLET PO STA (15:11)
--- NOTE | 2018-10-15 15:17 | XR ---
EXAMINATION TYPE: XR forearm 2 views RT, XR hand complete 3 views RT DATE OF EXAM: 10/15/2018 COMPARISON: NONE HISTORY: 42-year-old female bike, pain FINDINGS: Forearm: Elbow articulation grossly intact. No elbow joint effusion. No acute fracture. Hand: No acute fracture, subluxation, or dislocation. No retained radiopaque foreign body identified within the forearm or hand. IMPRESSION: Forearm and hand without acute osseous abnormality seen.
--- NOTE | 2018-10-15 15:32 | ED ---
Animal Bite HPI - General Chief Complaint: Animal Bite Stated Complaint: Dog bite Time Seen by Provider: 10/15/18 14:39 Source: patient, RN notes reviewed, old records reviewed Mode of arrival: ambulatory Limitations: no limitations - History of Present Illness Initial Comments: Patient is a 42-year-old female presents returns today with complaints of the right arm and hand animal bite of her dog. Patient reports that her dog was hit by a car, when she was trying to take the dog to the vet the dog snapped back and bit her. Patient complains of pain with any range of motion of hand and wrist. Patient states that she needs an updated tetanus vaccine. Her dog is up-to-date on his vaccines. Patient reports that she has normal sensation over distal fingertips. - Related Data Home Medications Medication Instructions Recorded Confirmed Orphenadrine [Norflex] 100 mg PO BID PRN 02/22/18 03/07/18 Tamsulosin HCl [Flomax] 0.4 mg PO BID 02/22/18 03/07/18 Previous Rx's Medication Instructions Recorded Azithromycin [Zithromax] 500 mg PO DAILY 2 Days #2 tab 03/08/18 Cefuroxime Axetil [Ceftin] 500 mg PO BID #14 tab 03/08/18 Gentamicin 0.3% Ophth Soln 1 drops BOTH EYES Q4HR 5 Days #1 10/05/18 [Garamycin 0.3% Ophth Soln] bottle Amoxic-Pot Clav 875-125Mg 1 tab PO Q12HR #20 tablet 10/15/18 [Augmentin 875-125] Allergies Allergy/AdvReac Type Severity Reaction Status Date / Time iodine Allergy Rash/Hives Verified 10/05/18 22:18 shellfish derived [Shellfish] Allergy Anaphylaxis Verified 10/05/18 22:18 prednisone AdvReac Severe Increased Verified 10/05/18 22:18 Blood Pressure Review of Systems ROS Statement: Those systems with pertinent positive or pertinent negative responses have been documented in the HPI. ROS Other: All systems not noted in ROS Statement are negative. Past Medical History Past Medical History: Asthma, Chest Pain / Angina, Liver Disease Additional Past Medical History / Comment(s): polycystic kidneys, lupus, heart murmur, pleurisy, elevated liver enzymes History of Any Multi-Drug Resistant Organisms: None Reported Past Surgical History: Appendectomy, Cholecystectomy, Tonsillectomy Additional Past Surgical History / Comment(s): wisdom teeth removal, colonoscopy and egd, IUD, kidney surgery Past Anesthesia/Blood Transfusion Reactions: Postoperative Nausea & Vomiting (PONV) Past Psychological History: No Psychological Hx Reported Smoking Status: Former smoker Past Alcohol Use History: None Reported Past Drug Use History: Marijuana - Past Family History Mother Family Medical History: Hypertension Additional Family Medical History / Comment(s): hypoglycemic General Exam - General Exam Comments Initial Comments: Is a 42-year-old female. Alert and oriented. Anxious in moderate distress. Limitations: no limitations General appearance: alert, in no apparent distress Head exam: Present: atraumatic, normocephalic, normal inspection Eye exam: Present: normal appearance, PERRL, EOMI. Absent: scleral icterus, conjunctival injection, periorbital swelling ENT exam: Present: normal exam, mucous membranes moist Neck exam: Present: normal inspection. Absent: tenderness, meningismus, lymphadenopathy Respiratory exam: Present: normal lung sounds bilaterally. Absent: respiratory distress, wheezes, rales, rhonchi, stridor Cardiovascular Exam: Present: regular rate GI/Abdominal exam: Present: soft, normal bowel sounds. Absent: distended, tenderness, guarding, rebound, rigid Extremities exam: Present: normal inspection, full ROM, normal capillary refill. Absent: tenderness, pedal edema, joint swelling, calf tenderness Right Elbow exam: Present: normal inspection, full ROM Forearm Wrist exam: Present: normal inspection, full ROM, laceration (Patient has a 1 cm puncture wound over the anterior left wrist.) Hand Wrist exam: Present: tenderness, swelling (Patient's tenderness and swelling over the thenar eminence. Evidence of 2 puncture wounds over the dorsal and anterior thenar eminence.). Absent: normal inspection Vascular: Present: normal capillary refill Back exam: Present: normal inspection Neurological exam: Present: alert, oriented X3, CN II-XII intact Psychiatric exam: Present: normal affect, normal mood Skin exam: Present: warm, dry, intact, normal color. Absent: rash Course Vital Signs 10/15/18 14:30 Temperature 98.7 F Pulse Rate 87 Respiratory 20 Rate Blood Pressure 157/83 O2 Sat by Pulse 100 Oximetry Medical Decision Making - Medical Decision Making 42-year-old female alert and oriented presents for his parents today after dog bite from her own dog on her right hand and wrist. Patient has 3 puncture wound sites over her wrist and thumb area. These areas are thoroughly irrigated with saline. Patient started on Augmentin. Patient will be have her wounds irrigated and closed with Steri-Strips. Discussed that she follow up with her primary care doctor will start her on Augmentin. All questions answered. Discussed following up with hand specialist as well. Discussed monitoring for any infection. - Radiology Data Radiology results: report reviewed Forearm and hand x-ray are negative for any acute abnormalities noted. Disposition Clinical Impression: Right wrist sprain, Hand sprain, Dog bite Disposition: HOME SELF-CARE Condition: Good Instructions (If sedation given, give patient instructions): Animal Bite (ED), Hand Sprain (ED) Additional Instructions: Patient advised to follow-up with your primary care doctor and speech language specialist. Symptoms came persist or worsening pain and anorexia. Please recheck wounds and follow-up with orthopedic. Keep the Steri-Strips over the wounds. Return to emergency department if any alarming signs or symptoms occur. Prescriptions: Amoxic-Pot Clav 875-125Mg [Augmentin 875-125] 1 tab PO Q12HR #20 tablet Is patient prescribed a controlled substance at d/c from ED?: No Referrals: Dony García MD [Primary Care Provider] - 1-2 days Sundeep Hernandez DO [Medical Doctor] - 1-2 days Time of Disposition: 15:29
[2018-10-15 16:34] VITALS: BP 154/83; RESP 18; TEMP 98.6
== END 2018-10-15 16:34 | disposition home or self-care (01) ==
LOC: EC 14:25
DX: S63.91XA Sprain of unspecified part of right wrist and hand, initial encounter (principal); S63.501A Unspecified sprain of right wrist, initial encounter; Z87.891 Personal history of nicotine dependence; Z23 Encounter for immunization; Z79.899 Other long term (current) drug therapy; Z91.048 Other nonmedicinal substance allergy status; Z91.013 Allergy to seafood; Z88.8 Allergy status to other drugs, medicaments and biological substances; W54.0XXA Bitten by dog, initial encounter; Y92.410 Unspecified street and highway as the place of occurrence of the external cause
CPT/HCPCS: 73090; 73130; 90715; 99284; 90471; J2001

== ENCOUNTER 2018-12-09 09:09 | Emergency (ER) | payer OTHER ==
[2018-12-09 09:20] VITALS: RESP 16; TEMP 98.1
[2018-12-09] MEDS ORDERED: ONDANSETRON 4 MG/2 ML VIAL IVP STA (09:49)
[2018-12-09] MEDS ORDERED: SODIUM CHLORIDE 0.9% 1,000 ML IV ONE (09:54)
--- NOTE | 2018-12-09 10:00 | ED ---
Female Urogenital HPI - General Chief complaint: Urogenital Stated complaint: Infection Time Seen by Provider: 12/09/18 09:32 Source: patient Mode of arrival: ambulatory Limitations: no limitations - History of Present Illness Initial comments: 42-year-old female presenting today for chief complaint of blood in her urine and abdominal Pain x 4 hours. Patient states that she has history of kidney stone she states that is not unusual for her to have hematuria. Patient states that she did have some abdominal cramping and back pain. She was concerned of stone. Patient states she has not had period in 9 weeks as well as was requesting blood draw for HCG, stating that she does not have positive urines even when she is . Pt denies fever, vomiting, diarrhea, melena, hematochezia. Patient denies chest pain or SOB. Denies RUQ/RLQ tenderness. Re alejandro ROS (-) Last Menstrual Period: 10/21/18 - Related Data Home Medications Medication Instructions Recorded Confirmed Orphenadrine [Norflex] 100 mg PO BID PRN 02/22/18 03/07/18 Tamsulosin HCl [Flomax] 0.4 mg PO BID 02/22/18 03/07/18 Previous Rx's Medication Instructions Recorded Azithromycin [Zithromax] 500 mg PO DAILY 2 Days #2 tab 03/08/18 Cefuroxime Axetil [Ceftin] 500 mg PO BID #14 tab 03/08/18 Gentamicin 0.3% Ophth Soln 1 drops BOTH EYES Q4HR 5 Days #1 10/05/18 [Garamycin 0.3% Ophth Soln] bottle Amoxic-Pot Clav 875-125Mg 1 tab PO Q12HR #20 tablet 10/15/18 [Augmentin 875-125] Allergies Allergy/AdvReac Type Severity Reaction Status Date / Time iodine Allergy Rash/Hives Verified 12/09/18 09:20 shellfish derived [Shellfish] Allergy Anaphylaxis Verified 12/09/18 09:20 prednisone AdvReac Severe Increased Verified 12/09/18 09:20 Blood Pressure Review of Systems ROS Statement: Those systems with pertinent positive or pertinent negative responses have been documented in the HPI. ROS Other: All systems not noted in ROS Statement are negative. Past Medical History Past Medical History: Asthma, Chest Pain / Angina, Liver Disease Additional Past Medical History / Comment(s): polycystic kidneys, lupus, heart murmur, pleurisy, elevated liver enzymes History of Any Multi-Drug Resistant Organisms: None Reported Past Surgical History: Appendectomy, Cholecystectomy, Tonsillectomy Additional Past Surgical History / Comment(s): wisdom teeth removal, colonoscopy and egd, IUD, kidney surgery Past Anesthesia/Blood Transfusion Reactions: Postoperative Nausea & Vomiting (PONV) Past Psychological History: No Psychological Hx Reported Smoking Status: Former smoker Past Alcohol Use History: None Reported Past Drug Use History: Marijuana - Past Family History Mother Family Medical History: Hypertension Additional Family Medical History / Comment(s): hypoglycemic General Exam - General Exam Comments Initial Comments: General: The patient is awake and alert, in no distress, and does not appear acutely ill. Eye: +3 mm pupils are equal, round and reactive to light, extra-ocular movements are intact. No nystagmus. There is normal conjunctiva bilaterally. No signs of icterus. Ears, nose, mouth and throat: There are moist mucous membranes and no oral lesions. Neck: The neck is supple, there is no tenderness or JVD. Cardiovascular: There is a regular rate and rhythm. No murmur, rub or gallop is appreciated. Respiratory: Lungs are clear to auscultation, respirations are non-labored, breath sounds are equal. No wheezes, stridor, rales, or rhonchi. Gastrointestinal: Soft, non-distended, non-tender abdomen without masses or organomegaly noted. There is no rebound or guarding present. No CVA tenderness. Bowel sounds are unremarkable. Musculoskeletal: Normal ROM, no tenderness. Strength 5/5. Sensation intact. Pulses equal bilaterally 2+. Neurological: A&O x 3. CN II-XII intact, There are no obvious motor or sensory deficits. Coordination appears grossly intact. Speech is normal. Skin: Skin is warm and dry and no rashes or lesions are noted. Psychiatric: Cooperative, appropriate mood & affect, normal judgment. Limitations: no limitations Course Vital Signs 12/09/18 12/09/18 09:18 12:15 Temperature 98.1 F Pulse Rate 63 76 Respiratory 16 16 Rate Blood Pressure 180/91 135/75 O2 Sat by Pulse 99 99 Oximetry Medical Decision Making - Medical Decision Making Well-appearing 42-year-old female kidney stones. Patient states she has back pain and hematuria. Patient states she has had some abdominal cramping. The patient will abdominal pain on examination. CT without contrast obtained revealing multiple stone 7-9 within the kidney. No evidence of obstructing stone. No fat stranding. Patient appears well laboratory studies stable. Vital signs temperature limits. Patient does not likely suggestive treatment. Patient does not appear upon portion. No concern for acute abdomen. At this time the patient is stable for discharge to outpatient primary care follow-up. - Lab Data Result diagrams: 12/09/18 10:03 12/09/18 10:03 Lab Results 12/09/18 12/09/18 12/09/18 Range/Units 09:39 10:03 10:03 WBC 5.0 (3.8-10.6) k/uL RBC 4.34 (3.80-5.40) m/uL Hgb 12.9 (11.4-16.0) gm/dL Hct 38.3 (34.0-46.0) % MCV 88.1 (80.0-100.0) fL MCH 29.8 (25.0-35.0) pg MCHC 33.8 (31.0-37.0) g/dL RDW 13.2 (11.5-15.5) % Plt Count 261 (150-450) k/uL Neutrophils % 57 % Lymphocytes % 33 % Monocytes % 4 % Eosinophils % 3 % Basophils % 1 % Neutrophils # 2.9 (1.3-7.7) k/uL Lymphocytes # 1.7 (1.0-4.8) k/uL Monocytes # 0.2 (0-1.0) k/uL Eosinophils # 0.2 (0-0.7) k/uL Basophils # 0.1 (0-0.2) k/uL Sodium 139 (137-145) mmol/L Potassium 4.0 (3.5-5.1) mmol/L Chloride 108 H (98-107) mmol/L Carbon Dioxide 25 (22-30) mmol/L Anion Gap 6 mmol/L BUN 13 (7-17) mg/dL Creatinine 0.63 (0.52-1.04) mg/dL Est GFR (CKD-EPI)AfAm >90 (>60 ml/min/1.73 sqM) Est GFR (CKD-EPI)NonAf >90 (>60 ml/min/1.73 sqM) Glucose 110 H (74-99) mg/dL Calcium 8.9 (8.4-10.2) mg/dL Total Bilirubin 0.8 (0.2-1.3) mg/dL AST 29 (14-36) U/L ALT 29 (9-52) U/L Alkaline Phosphatase 74 (38-126) U/L Total Protein 7.2 (6.3-8.2) g/dL Albumin 4.0 (3.5-5.0) g/dL HCG, Qual Not Detected Urine Color Light Yellow Urine Appearance Clear (Clear) Urine pH 6.5 (5.0-8.0) Ur Specific [place] 1.011 (1.001-1.035) Urine Protein Negative (Negative) Urine Glucose (UA) Negative (Negative) Urine Ketones Negative (Negative) Urine Blood Trace H (Negative) Urine Nitrite Negative (Negative) Urine Bilirubin Negative (Negative) Urine Urobilinogen <2.0 (<2.0) mg/dL Ur Leukocyte Esterase Negative (Negative) Urine RBC 2 (0-5) /hpf Urine WBC 1 (0-5) /hpf Ur Squamous Epith Cells <1 (0-4) /hpf Urine Mucus Rare H (None) /hpf Disposition Clinical Impression: Abdominal pain Disposition: HOME SELF-CARE Condition: Good Instructions (If sedation given, give patient instructions): Abdominal Pain (ED) Additional Instructions: Please use medication as discussed. Please follow-up with family doctor in the next 2 days. Please return to emergency room if the symptoms increase or worsen or for any other concerns. Is patient prescribed a controlled substance at d/c from ED?: No Referrals: Dony García MD [Primary Care Provider] - 1-2 days Time of Disposition: 12:12
[2018-12-09 10:25] LABS: Basophils # (A) 0.1 k/uL (0-0.2); Basophils % (A) 1 %; Eosinophils # (A) 0.2 k/uL (0-0.7); Eosinophils % (A) 3 %; HCT 38.3 % (34.0-46.0); HGB 12.9 gm/dL (11.4-16.0); Lymphocytes # (A) 1.7 k/uL (1.0-4.8); Lymphocytes % (A) 33 %; MCH 29.8 pg (25.0-35.0); MCHC 33.8 g/dL (31.0-37.0); MCV 88.1 fL (80.0-100.0); Mean Platelet Volume 6.9; Monocytes # (A) 0.2 k/uL (0-1.0); Monocytes % (A) 4 %; Neutrophils # (A) 2.9 k/uL (1.3-7.7); Neutrophils % (A) 57 %; Platelet Count 261 k/uL (150-450); RBC 4.34 m/uL (3.80-5.40); RDW 13.2 % (11.5-15.5)
[2018-12-09 10:30] LABS: Appearance,Urine Clear (Clear); Bilirubin,Urine Negative (Negative); Blood,Urine Trace (Negative); Color,Urine Light Yellow; Glucose,Urine (UA) Negative (Negative); Ketones,Urine Negative (Negative); Leukocyte Esterase,Urine Negative (Negative); Mucus,Urine Rare /hpf; Nitrite,Urine Negative (Negative); PH, Urine 6.5 (5.0-8.0); Protein,Urine Negative (Negative); RBC,Urine 2 /hpf (0-5); Specific Gravity,Urine 1.011 (1.001-1.035); Squamous Epithelial Cell,Urine <1 /hpf (0-4); Urobilinogen,Urine <2.0 mg/dL (<2.0); WBC,Urine 1 /hpf (0-5)
[2018-12-09 10:37] LABS: ALT 29 U/L (9-52); AST 29 U/L (14-36); African American GFR (CKD) >90 (>60 ml/min/1.73 sqM); Alkaline Phosphatase 74 U/L (38-126); Anion Gap 6 mmol/L; Blood Urea Nitrogen 13 mg/dL (7-17); Calcium 8.9 mg/dL (8.4-10.2); Carbon Dioxide 25 mmol/L (22-30); Chloride 108 mmol/L (98-107); Glucose 110 mg/dL (74-99); Non-African American GFR(CKD) >90 (>60 ml/min/1.73 sqM); Sodium 139 mmol/L (137-145); Total Bilirubin 0.8 mg/dL (0.2-1.3); Total Protein 7.2 g/dL (6.3-8.2)
[2018-12-09 10:47] LABS: HCG,Qualitative Serum Not Detected
--- NOTE | 2018-12-09 12:02 | CT ---
EXAMINATION TYPE: CT abdomen pelvis wo con DATE OF EXAM: 12/09/2018 HISTORY: Hematuria with bilateral flank pain. History of kidney stones. CT DLP: 790.8 mGycm. Automated Exposure Control for Dose Reduction was Utilized. TECHNIQUE: CT scan of the abdomen and pelvis is performed without oral or IV contrast. COMPARISON: CT abdomen and pelvis March 06, 2018 FINDINGS: Within the limitations of a non-contrast study, the following observations are made. LUNG BASES: No significant abnormality is seen. LIVER/GB: Cholecystectomy clips are redemonstrated. PANCREAS: No significant abnormality is seen. SPLEEN: No significant abnormality is seen. ADRENALS: No significant abnormality is seen. KIDNEYS: Stable 4 mm calculus anteriorly mid to lower pole level left kidney axial image 51. There ar e roughly 7-9 scattered right-sided renal calculi measuring up to 4 to 5 mm in size posteriorly lower pole of right kidney image 55. No hydronephrosis or obstructing ureteral calculi clearly seen. No in traluminal calculi and bladder clearly identified. A few scattered calcified phleboliths are present. BOWEL: Low lying cecum into the pelvis. No suspicious small or large bowel dilatation GENITAL ORGANS: Anteverted uterus with central metallic IUD. LYMPH NODES: No greater than 1cm abdominal or pelvic lymph nodes are appreciated. OSSEOUS STRUCTURES: No significant abnormality is seen. OTHER: No significant additional abnormality is seen. IMPRESSION: Redemonstration of bilateral nephrolithiasis, right more numerous than left without hydro nephrosis or obstructing ureteral calculi. No suspicious new or acute finding identified to account f or patient's symptoms.
[2018-12-09 12:16] VITALS: BP 135/75; PULSE 76
== END 2018-12-09 12:20 | disposition home or self-care (01) ==
LOC: EC 09:09
DX: R10.9 Unspecified abdominal pain (principal); N20.0 Calculus of kidney; M54.9 Dorsalgia, unspecified; R31.9 Hematuria, unspecified; Z87.891 Personal history of nicotine dependence; Z88.8 Allergy status to other drugs, medicaments and biological substances; Z91.013 Allergy to seafood; Z91.048 Other nonmedicinal substance allergy status; Z79.899 Other long term (current) drug therapy; Z87.448 Personal history of other diseases of urinary system; Z90.49 Acquired absence of other specified parts of digestive tract
CPT/HCPCS: 36415; 74176; 80053; 81001; 84703; 85025; 96360; 99284

== ENCOUNTER 2020-01-10 10:07 | Emergency (ER) | payer OTHER ==
[2020-01-10 10:13] VITALS: RESP 18
[2020-01-10] MEDS ORDERED: HYDROmorphone 0.5 MG/0.5 ML SYRINGE IVP STA (10:25)
[2020-01-10] MEDS ORDERED: ONDANSETRON 4 MG/2 ML VIAL IVP STA (10:25)
[2020-01-10] MEDS ORDERED: KETOROLAC 15 MG/ML 1 ML VIAL IVP STA (10:25)
[2020-01-10] MEDS ORDERED: SODIUM CHLORIDE 0.9% 1,000 ML IV STA (10:25)
--- NOTE | 2020-01-10 10:47 | ED ---
Abdominal Pain HPI - General Chief Complaint: Abdominal Pain Stated Complaint: poss kidney stones/infection Time Seen by Provider: 01/10/20 10:20 Source: patient Mode of arrival: ambulatory Limitations: no limitations - History of Present Illness Initial Comments: 44-year-old female patient presents to the emergency department today for evaluation of right flank pain and suprapubic abdominal pain. Patient states this started yesterday but worsened today. Patient states today she is having nausea and vomiting. States that she is urinating frequently. She denies any fevers but states she has been chilled. She does have a history of kidney stones and states this does feel similar. She denies any hematuria or dysuria. Denies any constipation or diarrhea. Denies any hematochezia, melena, hematemesis. She has had cholecystectomy and appendectomy in the past. Patient denies any recent rash, cough, shortness of breath, chest pain, back yue n, numbness, tingling, dizziness, weakness, headache, visual changes, or any other complaints. - Related Data Home Medications Medication Instructions Recorded Confirmed Orphenadrine [Norflex] 100 mg PO BID PRN 02/22/18 03/07/18 Tamsulosin HCl [Flomax] 0.4 mg PO BID 02/22/18 03/07/18 Previous Rx's Medication Instructions Recorded Azithromycin [Zithromax] 500 mg PO DAILY 2 Days #2 tab 03/08/18 Cefuroxime Axetil [Ceftin] 500 mg PO BID #14 tab 03/08/18 Gentamicin 0.3% Ophth Soln 1 drops BOTH EYES Q4HR 5 Days #1 10/05/18 [Garamycin 0.3% Ophth Soln] bottle Amoxic-Pot Clav 875-125Mg 1 tab PO Q12HR #20 tablet 10/15/18 [Augmentin 875-125] Ibuprofen [Motrin] 600 mg PO Q8HR PRN #30 tab 01/10/20 Ondansetron [Zofran ODT] 4 mg PO Q8HR PRN #21 tab 01/10/20 Orphenadrine [Norflex] 100 mg PO Q12H #14 tablet.er 01/10/20 Tamsulosin HCl [Flomax] 0.4 mg PO DAILY #7 cap 01/10/20 Allergies Allergy/AdvReac Type Severity Reaction Status Date / Time iodine Allergy Rash/Hives Verified 01/10/20 10:10 shellfish derived [Shellfish] Allergy Anaphylaxis Verified 01/10/20 10:10 prednisone AdvReac Severe Increased Verified 01/10/20 10:10 Blood Pressure Review of Systems ROS Statement: Those systems with pertinent positive or pertinent negative responses have been documented in the HPI. ROS Other: All systems not noted in ROS Statement are negative. Past Medical History Past Medical History: Asthma, Chest Pain / Angina, Liver Disease Additional Past Medical History / Comment(s): polycystic kidneys, lupus, heart murmur, pleurisy, elevated liver enzymes History of Any Multi-Drug Resistant Organisms: None Reported Past Surgical History: Appendectomy, Cholecystectomy, Tonsillectomy Additional Past Surgical History / Comment(s): wisdom teeth removal, colonoscopy and egd, IUD, kidney surgery Past Anesthesia/Blood Transfusion Reactions: Postoperative Nausea & Vomiting (PONV) Past Psychological History: No Psychological Hx Reported Smoking Status: Never smoker Past Alcohol Use History: None Reported Past Drug Use History: Marijuana - Past Family History Mother Family Medical History: Hypertension Additional Family Medical History / Comment(s): hypoglycemic General Exam Limitations: no limitations General appearance: alert, in no apparent distress, other (This is a well-developed, well-nourished adult female patient in no acute distress. Vital signs upon presentation are temperature 98.2F, pulse 77, respirations 18, blood pressure 166/92, pulse ox 97% on room air.) Eye exam: Present: normal appearance, PERRL, EOMI. Absent: scleral icterus, conjunctival injection, periorbital swelling Respiratory exam: Present: normal lung sounds bilaterally. Absent: respiratory distress, wheezes, rales, rhonchi, stridor Cardiovascular Exam: Present: regular rate, normal rhythm, normal heart sounds. Absent: systolic murmur, diastolic murmur, rubs, gallop, clicks GI/Abdominal exam: Present: soft, tenderness (Suprapubic), normal bowel sounds. Absent: distended, guarding, rebound, rigid Back exam: Present: CVA tenderness (R). Absent: CVA tenderness (L) Neurological exam: Present: alert, oriented X3, CN II-XII intact Psychiatric exam: Present: normal affect, normal mood Skin exam: Present: warm, dry, intact, normal color. Absent: rash Course Vital Signs 01/10/20 10:10 Temperature 98.2 F Pulse Rate 77 Respiratory 18 Rate Blood Pressure 166/92 O2 Sat by Pulse 97 Oximetry Medical Decision Making - Medical Decision Making 44-year-old female patient presents to the emergency department today for evaluation of right flank and suprapubic pain. Symptoms have been present since yesterday. She has had some vomiting today. Physical examination did reveal right CVA tenderness. Mild suprapubic tenderness. Labs reviewed and did reveal normal white blood cell count, normal kidney function. She did have 12 red blood cells in her urine. KUB showed kidney stones on the right side. She is afebrile with normal vital signs. Patient does have a history of kidney stones in her symptoms are similar. Symptoms and lab findings are consistent with kidney stones we will treat with Flomax and pain medications. She is instructed to follow-up with her urologist for further evaluation as soon as possible. She is instructed to follow-up with her primary care physician for recheck in 1- 2 days. Return parameters were discussed in detail. She verbalizes understanding and agrees with this plan. - Lab Data Result diagrams: 01/10/20 10:42 01/10/20 10:42 Lab Results 01/10/20 01/10/20 01/10/20 Range/Units 10:42 10:42 10:42 WBC 7.8 (3.8-10.6) k/uL RBC 4.70 (3.80-5.40) m/uL Hgb 13.5 (11.4-16.0) gm/dL Hct 42.1 (34.0-46.0) % MCV 89.5 (80.0-100.0) fL MCH 28.8 (25.0-35.0) pg MCHC 32.2 (31.0-37.0) g/dL RDW 13.1 (11.5-15.5) % Plt Count 311 (150-450) k/uL Neutrophils % 76 % Lymphocytes % 18 % Monocytes % 3 % Eosinophils % 2 % Basophils % 1 % Neutrophils # 5.9 (1.3-7.7) k/uL Lymphocytes # 1.4 (1.0-4.8) k/uL Monocytes # 0.2 (0-1.0) k/uL Eosinophils # 0.1 (0-0.7) k/uL Basophils # 0.1 (0-0.2) k/uL Sodium (137-145) mmol/L Potassium (3.5-5.1) mmol/L Chloride (98-107) mmol/L Carbon Dioxide (22-30) mmol/L Anion Gap mmol/L BUN (7-17) mg/dL Creatinine (0.52-1.04) mg/dL Est GFR (CKD-EPI)AfAm (>60 ml/min/1.73 sqM) Est GFR (CKD-EPI)NonAf (>60 ml/min/1.73 sqM) Glucose (74-99) mg/dL Calcium (8.4-10.2) mg/dL Total Bilirubin (0.2-1.3) mg/dL AST (14-36) U/L ALT (4-34) U/L Alkaline Phosphatase (38-126) U/L Total Protein (6.3-8.2) g/dL Albumin (3.5-5.0) g/dL Amylase (30-110) U/L Lipase (23-300) U/L Urine Color Yellow Urine Appearance Clear (Clear) Urine pH 7.5 (5.0-8.0) Ur Specific [place] 1.018 (1.001-1.035) Urine Protein Negative (Negative) Urine Glucose (UA) Negative (Negative) Urine Ketones Negative (Negative) Urine Blood Trace H (Negative) Urine Nitrite Negative (Negative) Urine Bilirubin Negative (Negative) Urine Urobilinogen <2.0 (<2.0) mg/dL Ur Leukocyte Esterase Negative (Negative) Urine RBC 12 H (0-5) /hpf Urine WBC 2 (0-5) /hpf Ur Squamous Epith Cells <1 (0-4) /hpf Urine Bacteria Rare H (None) /hpf Urine Mucus Few H (None) /hpf Urine HCG, Qual Not Detected (Not Detectd) 01/10/20 Range/Units 10:42 WBC (3.8-10.6) k/uL RBC (3.80-5.40) m/uL Hgb (11.4-16.0) gm/dL Hct (34.0-46.0) % MCV (80.0-100.0) fL MCH (25.0-35.0) pg MCHC (31.0-37.0) g/dL RDW (11.5-15.5) % Plt Count (150-450) k/uL Neutrophils % % Lymphocytes % % Monocytes % % Eosinophils % % Basophils % % Neutrophils # (1.3-7.7) k/uL Lymphocytes # (1.0-4.8) k/uL Monocytes # (0-1.0) k/uL Eosinophils # (0-0.7) k/uL Basophils # (0-0.2) k/uL Sodium 141 (137-145) mmol/L Potassium 4.2 (3.5-5.1) mmol/L Chloride 108 H (98-107) mmol/L Carbon Dioxide 23 (22-30) mmol/L Anion Gap 10 mmol/L BUN 18 H (7-17) mg/dL Creatinine 0.63 (0.52-1.04) mg/dL Est GFR (CKD-EPI)AfAm >90 (>60 ml/min/1.73 sqM) Est GFR (CKD-EPI)NonAf >90 (>60 ml/min/1.73 sqM) Glucose 131 H (74-99) mg/dL Calcium 9.5 (8.4-10.2) mg/dL Total Bilirubin 0.8 (0.2-1.3) mg/dL AST 34 (14-36) U/L ALT 26 (4-34) U/L Alkaline Phosphatase 94 (38-126) U/L Total Protein 7.5 (6.3-8.2) g/dL Albumin 4.5 (3.5-5.0) g/dL Amylase 36 (30-110) U/L Lipase 70 (23-300) U/L Urine Color Urine Appearance (Clear) Urine pH (5.0-8.0) Ur Specific [place] (1.001-1.035) Urine Protein (Negative) Urine Glucose (UA) (Negative) Urine Ketones (Negative) Urine Blood (Negative) Urine Nitrite (Negative) Urine Bilirubin (Negative) Urine Urobilinogen (<2.0) mg/dL Ur Leukocyte Esterase (Negative) Urine RBC (0-5) /hpf Urine WBC (0-5) /hpf Ur Squamous Epith Cells (0-4) /hpf Urine Bacteria (None) /hpf Urine Mucus (None) /hpf Urine HCG, Qual (Not Detectd) - Radiology Data Radiology results: report reviewed, image reviewed KUB x-ray was obtained. Report is reviewed in its entirety. Impression by Dr. Davidson shows no evidence for free air. Bowel obstruction. Suggestion of a 5 mm and 4 mm right nonobstructive renal calculus. Disposition Clinical Impression: Right flank pain, Hematuria Disposition: HOME SELF-CARE Condition: Good Instructions (If sedation given, give patient instructions): Kidney Stones (ED), Flank Pain (ED) Additional Instructions: Increase fluids. Take medications as directed. Follow-up with your urologist for further evaluation as soon as possible. Follow up with your primary care physician for recheck in 1-2 days. Return to the emergency department immediately for any new, worsening, or concerning symptoms. Prescriptions: Tamsulosin HCl [Flomax] 0.4 mg PO DAILY #7 cap Ibuprofen [Motrin] 600 mg PO Q8HR PRN #30 tab PRN Reason: Pain Orphenadrine [Norflex] 100 mg PO Q12H #14 tablet.er Ondansetron [Zofran ODT] 4 mg PO Q8HR PRN #21 tab PRN Reason: Nausea Is patient prescribed a controlled substance at d/c from ED?: No Referrals: Dony García MD [Primary Care Provider] - 1-2 days Time of Disposition: 11:50
[2020-01-10 11:05] LABS: Basophils # (A) 0.1 k/uL (0-0.2); Basophils % (A) 1 %; Eosinophils # (A) 0.1 k/uL (0-0.7); Eosinophils % (A) 2 %; HCT 42.1 % (34.0-46.0); HGB 13.5 gm/dL (11.4-16.0); Lymphocytes # (A) 1.4 k/uL (1.0-4.8); Lymphocytes % (A) 18 %; MCH 28.8 pg (25.0-35.0); MCHC 32.2 g/dL (31.0-37.0); MCV 89.5 fL (80.0-100.0); Mean Platelet Volume 7.6; Monocytes # (A) 0.2 k/uL (0-1.0); Monocytes % (A) 3 %; Neutrophils # (A) 5.9 k/uL (1.3-7.7); Neutrophils % (A) 76 %; Platelet Count 311 k/uL (150-450); RDW 13.1 % (11.5-15.5); WBC 7.8 k/uL (3.8-10.6)
[2020-01-10 11:06] LABS: Appearance,Urine Clear (Clear); Bacteria,Urine Rare /hpf; Bilirubin,Urine Negative (Negative); Blood,Urine Trace (Negative); Color,Urine Yellow; Glucose,Urine (UA) Negative (Negative); Ketones,Urine Negative (Negative); Leukocyte Esterase,Urine Negative (Negative); Mucus,Urine Few /hpf; Nitrite,Urine Negative (Negative); PH, Urine 7.5 (5.0-8.0); Protein,Urine Negative (Negative); RBC,Urine 12 /hpf (0-5); Specific Gravity,Urine 1.018 (1.001-1.035); Squamous Epithelial Cell,Urine <1 /hpf (0-4); Urobilinogen,Urine <2.0 mg/dL (<2.0); WBC,Urine 2 /hpf (0-5)
[2020-01-10 11:21] LABS: ALT 26 U/L (4-34); AST 34 U/L (14-36); African American GFR (CKD) >90 (>60 ml/min/1.73 sqM); Albumin 4.5 g/dL (3.5-5.0); Alkaline Phosphatase 94 U/L (38-126); Amylase 36 U/L (30-110); Anion Gap 10 mmol/L; Blood Urea Nitrogen 18 mg/dL (7-17); Calcium 9.5 mg/dL (8.4-10.2); Carbon Dioxide 23 mmol/L (22-30); Chloride 108 mmol/L (98-107); Glucose 131 mg/dL (74-99); Non-African American GFR(CKD) >90 (>60 ml/min/1.73 sqM); Potassium 4.2 mmol/L (3.5-5.1); Sodium 141 mmol/L (137-145); Total Bilirubin 0.8 mg/dL (0.2-1.3); Total Protein 7.5 g/dL (6.3-8.2)
--- NOTE | 2020-01-10 11:34 | XR ---
EXAMINATION TYPE: XR KUB DATE OF EXAM: 01/10/2020 Comparison: 02/22/2018 Clinical History: 44-year-old female abdominal pain Findings: Lung bases are clear. No evidence for free intraperitoneal air. Cholecystectomy. Subtle 4 mm calcification right mid abdomen and 5 mm on the left. A vague 4 mm density left side of t he pelvis, likely phlebolith, unchanged from 2018. IUD device is present. No dilated small bowel air-fluid levels. Scattered mild stool burden. Impression: 1. No evidence for free air or bowel obstruction. 2. Suggestion of a 5 mm left and 4 mm right nonobstructive renal calculus.
[2020-01-10] MEDS ORDERED: HYDROmorphone 1 MG/ML 1 ML SYRINGE IVP STA (11:50)
[2020-01-10] MEDS ORDERED: ONDANSETRON 4 MG ODT STARTER PACK 2 TAB BTL PO STA (11:50)
[2020-01-10] MEDS ORDERED: ACET/COD 300 MG/30 MG STARTER PACK 6 TAB BTL PO STA (11:50)
[2020-01-10 12:22] VITALS: BP 165/87; PULSE 62; TEMP 97.8
== END 2020-01-10 12:38 | disposition home or self-care (01) ==
LOC: EC 10:07
DX: R10.9 Unspecified abdominal pain (principal); R31.9 Hematuria, unspecified; N20.0 Calculus of kidney; Z91.013 Allergy to seafood; Z91.048 Other nonmedicinal substance allergy status; Z88.8 Allergy status to other drugs, medicaments and biological substances; Z90.49 Acquired absence of other specified parts of digestive tract; Z90.89 Acquired absence of other organs
CPT/HCPCS: 36415; 80053; 82150; 83690; 85025; 81001; 81025; 74018; 99284; 96374; 96375 ×2; 96376; 96361 ×2; J2405; J1170 ×2; J1885; S0119

== ENCOUNTER 2020-12-20 13:03 | Emergency (ER) | payer OTHER ==
[2020-12-20 14:02] VITALS: RESP 20; TEMP 98.4
--- NOTE | 2020-12-20 15:09 | ED ---
Fall HPI - General Chief Complaint: Fall Stated Complaint: fall, back pain Time Seen by Provider: 12/20/20 14:58 Source: patient, old records reviewed Mode of arrival: ambulatory - History of Present Illness Initial Comments: 44-year-old white female, alert and oriented 4, presents to the emergency room with complaints of falling down 10 steps at home. Patient states that she lost her footing and went down on her back in a "C shape "patient states that she has shooting pain she did take a marijuana coming prior to arrival for the pain. She is declining any pain medication at this time. She states that she just wants an x-ray. She states that she did have a parasite infection which caused her to have weakness on her left side. She was able to get up and walk with s ome assistance from family member. She denies any bowel or bladder incontinence MD Complaint: fall -: hour(s) (3) Fall From: down stairs (#) (12) When Fall Occurred: 1-[address] Fall Occurred: home Loss of Consciousness: none Severity scale (1-10): 10 Quality: aching - Related Data Home Medications Medication Instructions Recorded Confirmed Orphenadrine [Norflex] 100 mg PO BID PRN 02/22/18 03/07/18 Tamsulosin HCl [Flomax] 0.4 mg PO BID 02/22/18 03/07/18 Previous Rx's Medication Instructions Recorded Azithromycin [Zithromax] 500 mg PO DAILY 2 Days #2 tab 03/08/18 Cefuroxime Axetil [Ceftin] 500 mg PO BID #14 tab 03/08/18 Gentamicin 0.3% Ophth Soln 1 drops BOTH EYES Q4HR 5 Days #1 10/05/18 [Garamycin 0.3% Ophth Soln] bottle Amoxic-Pot Clav 875-125Mg 1 tab PO Q12HR #20 tablet 10/15/18 [Augmentin 875-125] Ibuprofen [Motrin] 600 mg PO Q8HR PRN #30 tab 01/10/20 Ondansetron [Zofran ODT] 4 mg PO Q8HR PRN #21 tab 01/10/20 Orphenadrine [Norflex] 100 mg PO Q12H #14 tablet.er 01/10/20 Tamsulosin HCl [Flomax] 0.4 mg PO DAILY #7 cap 01/10/20 Cyclobenzaprine [Flexeril] 5 mg PO TID PRN #15 tablet 12/20/20 Allergies Allergy/AdvReac Type Severity Reaction Status Date / Time iodine Allergy Rash/Hives Verified 12/20/20 14:02 shellfish derived [Shellfish] Allergy Anaphylaxis Verified 12/20/20 14:02 prednisone AdvReac Severe Increased Verified 12/20/20 14:02 Blood Pressure Review of Systems ROS Statement: Those systems with pertinent positive or pertinent negative responses have been documented in the HPI. ROS Other: All systems not noted in ROS Statement are negative. Past Medical History Past Medical History: Asthma, Chest Pain / Angina, Liver Disease Additional Past Medical History / Comment(s): polycystic kidneys, lupus, heart murmur, pleurisy, elevated liver enzymes History of Any Multi-Drug Resistant Organisms: None Reported Past Surgical History: Appendectomy, Cholecystectomy, Tonsillectomy Additional Past Surgical History / Comment(s): wisdom teeth removal, colonoscopy and egd, IUD, kidney surgery Past Anesthesia/Blood Transfusion Reactions: Postoperative Nausea & Vomiting (PONV) Past Psychological History: No Psychological Hx Reported Smoking Status: Never smoker Past Alcohol Use History: None Reported Past Drug Use History: Marijuana - Past Family History Mother Family Medical History: Hypertension Additional Family Medical History / Comment(s): hypoglycemic General Exam Limitations: no limitations General appearance: alert, in no apparent distress Head exam: Present: atraumatic, normocephalic, normal inspection Eye exam: Present: normal appearance, PERRL, EOMI. Absent: scleral icterus, conjunctival injection, periorbital swelling ENT exam: Present: normal exam, normal oropharynx, mucous membranes moist Neck exam: Present: normal inspection, full ROM. Absent: tenderness, meningismus, lymphadenopathy, thyromegaly Respiratory exam: Present: normal lung sounds bilaterally. Absent: respiratory distress, wheezes, rales, rhonchi, stridor Cardiovascular Exam: Present: regular rate, normal rhythm, normal heart sounds. Absent: systolic murmur, diastolic murmur, rubs, gallop, clicks GI/Abdominal exam: Present: soft, normal bowel sounds. Absent: distended, tenderness, guarding, rebound, rigid Extremities exam: Present: normal capillary refill. Absent: pedal edema, calf tenderness Back exam: Present: normal inspection, tenderness (Thoracic lumbar spine tenderness), paraspinal tenderness, vertebral tenderness Expanded Back exam: Absent: saddle anesthesia Neurological exam: Present: alert, oriented X3 Psychiatric exam: Present: normal affect, normal mood Skin exam: Present: warm, dry, intact, normal color. Absent: rash Course Vital Signs 12/20/20 14:00 Temperature 98.4 F Pulse Rate 80 Respiratory 20 Rate Blood Pressure 146/86 O2 Sat by Pulse 99 Oximetry Medical Decision Making - Medical Decision Making X-ray of the lumbosacral spine show satisfactory alignment with no evidence of acute fracture or dislocation. Vertebral body disc space is within normal limits. Patient was offered pain medication and muscle relaxer and she declined. She states that she took CBD prior to arrival for her pain. Patient was able to ambulate in the hallway at discharge. She will be directed to follow up with Dr. Painting's office next week and return if any worsening or new symptoms. She is agreeable to being discharged and this plan of care. Disposition Clinical Impression: Fall, Back pain Disposition: HOME SELF-CARE Condition: Fair Instructions (If sedation given, give patient instructions): Fall Prevention (ED), Acute Low Back Pain (ED), Lower Back Exercises (ED) Additional Instructions: Return with any new or worsening symptoms. Any bowel or bladder incontinence numbness or tingling. Take the Flexeril as needed. Increase your fluid intake, Motrin for inflammation. Prescriptions: Cyclobenzaprine [Flexeril] 5 mg PO TID PRN #15 tablet PRN Reason: Muscle Spasm Is patient prescribed a controlled substance at d/c from ED?: No Referrals: Dony García MD [Primary Care Provider] - 1-2 days Time of Disposition: 16:09
--- NOTE | 2020-12-20 15:45 | XR ---
EXAMINATION TYPE: XR lumbosacral spine min 4V DATE OF EXAM: 12/20/2020 CLINICAL HISTORY: Pain after fall injury. TECHNIQUE: Frontal, lateral, and oblique images of the lumbar spine are obtained. COMPARISON: CT abdomen and pelvis December 09, 2018 FINDINGS: There are 5 lumbar type vertebral bodies redemonstrated. The lumbar spine redemonstrates satisfactory alignment without evidence of acute fracture or dislocation. Vertebral body heights and disk space heights remain within normal limits. The oblique images appear within normal limits. Ove rlying cholecystectomy clips are redemonstrated. Small bilateral renal calculi are partially imaged. IMPRESSION: No acute fracture or dislocation is seen in the lumbar spine.
[2020-12-20 16:42] VITALS: BP 133/85; PULSE 87
== END 2020-12-20 16:40 | disposition home or self-care (01) ==
LOC: EC 13:03
DX: M54.9 Dorsalgia, unspecified (principal); J45.909 Unspecified asthma, uncomplicated; F12.90 Cannabis use, unspecified, uncomplicated; Z91.041 Radiographic dye allergy status; Z91.013 Allergy to seafood; Z90.89 Acquired absence of other organs; Z90.49 Acquired absence of other specified parts of digestive tract; Z88.8 Allergy status to other drugs, medicaments and biological substances
CPT/HCPCS: 72110; 99284

== ENCOUNTER 2021-03-20 10:43 | Emergency (ER) | payer OTHER ==
[2021-03-20 10:48] VITALS: RESP 18; TEMP 97.9
--- NOTE | 2021-03-20 12:58 | XR ---
EXAMINATION TYPE: XR chest 2V DATE OF EXAM: 03/20/2021 COMPARISON: NONE TECHNIQUE: PA and lateral views submitted. HISTORY: Cough FINDINGS: The lungs are clear and there is no pneumothorax, pleural effusion, or focal pneumonia. Hypertrophi c and degenerative change of the spine. Surgical clips in the upper abdomen. Heart size normal. No ov ert failure. IMPRESSION: 1. No acute process.
--- NOTE | 2021-03-20 14:14 | ED ---
General Adult HPI - General Chief complaint: Upper Respiratory Infection Stated complaint: Cough Time Seen by Provider: 03/20/21 13:45 Source: patient, RN notes reviewed, old records reviewed Mode of arrival: ambulatory Limitations: no limitations - History of Present Illness Initial comments: This is a 45-year-old female presents emergency department stating that for 16 days she's had a cough with some sputum production. Patient states infectious much worse in the morning. Patient also complains of a sore throat the morning it seems to resolve over the day. Patient states lately she hasn't as much sputum production. Patient denies any fever. Patient denies any significant shortness of breath. Patient denies any chest pain or palpitations. Patient states this all started with a sinus infection and she has quite a bit of postnasal drip still. Patient denies any headache patient denies any abdominal pain patient denies nausea vomiting diarrhea - Related Data Home Medications Medication Instructions Recorded Confirmed Orphenadrine [Norflex] 100 mg PO BID PRN 02/22/18 03/07/18 Tamsulosin HCl [Flomax] 0.4 mg PO BID 02/22/18 03/07/18 Previous Rx's Medication Instructions Recorded Azithromycin [Zithromax] 500 mg PO DAILY 2 Days #2 tab 03/08/18 Cefuroxime Axetil [Ceftin] 500 mg PO BID #14 tab 03/08/18 Gentamicin 0.3% Ophth Soln 1 drops BOTH EYES Q4HR 5 Days #1 10/05/18 [Garamycin 0.3% Ophth Soln] bottle Amoxic-Pot Clav 875-125Mg 1 tab PO Q12HR #20 tablet 10/15/18 [Augmentin 875-125] Ibuprofen [Motrin] 600 mg PO Q8HR PRN #30 tab 01/10/20 Ondansetron [Zofran ODT] 4 mg PO Q8HR PRN #21 tab 01/10/20 Orphenadrine [Norflex] 100 mg PO Q12H #14 tablet.er 01/10/20 Tamsulosin HCl [Flomax] 0.4 mg PO DAILY #7 cap 01/10/20 Cyclobenzaprine [Flexeril] 5 mg PO TID PRN #15 tablet 12/20/20 Albuterol Inhaler [Ventolin Hfa 2 puff INHALATION RT-QID #18 gm 03/20/21 Inhaler] Allergies Allergy/AdvReac Type Severity Reaction Status Date / Time iodine Allergy Rash/Hives Verified 03/20/21 10:48 shellfish derived [Shellfish] Allergy Anaphylaxis Verified 03/20/21 10:48 prednisone AdvReac Severe Increased Verified 03/20/21 10:48 Blood Pressure Review of Systems ROS Statement: Those systems with pertinent positive or pertinent negative responses have been documented in the HPI. ROS Other: All systems not noted in ROS Statement are negative. Past Medical History Past Medical History: Asthma, Chest Pain / Angina, Liver Disease Additional Past Medical History / Comment(s): polycystic kidneys, lupus, heart murmur, pleurisy, elevated liver enzymes History of Any Multi-Drug Resistant Organisms: None Reported Past Surgical History: Appendectomy, Cholecystectomy, Tonsillectomy Additional Past Surgical History / Comment(s): wisdom teeth removal, colonoscopy and egd, IUD, kidney surgery Past Anesthesia/Blood Transfusion Reactions: Postoperative Nausea & Vomiting (PONV) Past Psychological History: No Psychological Hx Reported Smoking Status: Never smoker Past Alcohol Use History: None Reported Past Drug Use History: Marijuana - Past Family History Mother Family Medical History: Hypertension Additional Family Medical History / Comment(s): hypoglycemic General Exam - General Exam Comments Initial Comments: GENERAL: Patient is well-developed and well-nourished. Patient is nontoxic and well- hydrated and is in no acute distress. ENT: Neck is soft and supple. No significant lymphadenopathy is noted. Posterior pharynx is mildly erythematous and there is a little postnasal drip noted. Moist mucous membranes. Neck has full range of motion without eliciting any pain. EYES: The sclera were anicteric and conjunctiva were pink and moist. Extraocular movements were intact and pupils were equal round and reactive to light. Eyelids were unremarkable. PULMONARY: Unlabored respirations. Good breath sounds bilaterally. No audible rales rhonchi or wheezing was noted. CARDIOVASCULAR: There is a regular rate and rhythm without any murmurs gallops or rubs. ABDOMEN: Soft and nontender with normal bowel sounds. SKIN: Skin is clear with no lesions or rashes and otherwise unremarkable. NEUROLOGIC: Patient is alert and oriented x3. Cranial nerves II through XII are grossly intact. Motor and sensory are also intact. Normal speech, volume and content. Symmetrical smile. MUSCULOSKELETAL: Normal extremities with adequate strength and full range of motion. PSYCHIATRIC: Normal psychiatric evaluation. Limitations: no limitations Course Vital Signs 03/20/21 10:44 Temperature 97.9 F Pulse Rate 75 Respiratory 18 Rate Blood Pressure 169/88 O2 Sat by Pulse 100 Oximetry Medical Decision Making - Medical Decision Making Patient did not want any decongestants or antihistamines to help dry her up she stated she would use homeopathic methods. - Lab Data Lab Results 03/20/21 Range/Units 12:46 Coronavirus (PCR) Not Detected (Not Detectd) Disposition Clinical Impression: Acute upper respiratory infection Disposition: HOME SELF-CARE Condition: Good Instructions (If sedation given, give patient instructions): Upper Respiratory Infection (ED) Prescriptions: Albuterol Inhaler [Ventolin Hfa Inhaler] 2 puff INHALATION RT-QID #18 gm Is patient prescribed a controlled substance at d/c from ED?: No Referrals: Dony García MD [Primary Care Provider] - 1-2 days Time of Disposition: 14:14
[2021-03-20 14:24] VITALS: BP 157/95; PULSE 66
== END 2021-03-20 14:24 | disposition home or self-care (01) ==
LOC: EC 10:43
DX: J06.9 Acute upper respiratory infection, unspecified (principal); J45.909 Unspecified asthma, uncomplicated; F12.90 Cannabis use, unspecified, uncomplicated; Z88.6 Allergy status to analgesic agent; Z90.49 Acquired absence of other specified parts of digestive tract; Z20.822 Contact with and (suspected) exposure to COVID-19
CPT/HCPCS: 71046; 87635; 99283

== ENCOUNTER 2021-04-03 08:48 | Emergency (ER) | payer OTHER ==
[2021-04-03 08:53] VITALS: TEMP 98.7
--- NOTE | 2021-04-03 09:11 | ED ---
General Adult HPI - General Chief complaint: Upper Respiratory Infection Stated complaint: Covid symptoms, unable to smell or taste Time Seen by Provider: 04/03/21 08:58 Source: patient, family, RN notes reviewed, old records reviewed Mode of arrival: ambulatory Limitations: no limitations - History of Present Illness Initial comments: 45-year-old female with 5 days of upper restaurant symptoms, cough, sore throat, congestion. Patient has had a cough productive of yellow sputum. She's had subjective fever and chills. No nausea vomiting. No central chest pain. Patient states she had an upper respiratory infection approximately one month ago and tested negative for coronavirus at that time. The symptoms did improve however over the past 5 days she's developed new symptoms. She is not vaccinated secondary to lupus and previous adverse reactions to vaccines. - Related Data Previous Rx's Medication Instructions Recorded Albuterol Inhaler [Ventolin Hfa 2 puff INHALATION RT-QID #18 gm 03/20/21 Inhaler] Allergies Allergy/AdvReac Type Severity Reaction Status Date / Time iodine Allergy Rash/Hives Verified 04/03/21 10:19 shellfish derived [Shellfish] Allergy Anaphylaxis Verified 04/03/21 10:19 prednisone AdvReac Severe Increased Verified 04/03/21 10:19 Blood Pressure Review of Systems ROS Statement: Those systems with pertinent positive or pertinent negative responses have been documented in the HPI. ROS Other: All systems not noted in ROS Statement are negative. Past Medical History Past Medical History: Asthma, Chest Pain / Angina, Liver Disease Additional Past Medical History / Comment(s): polycystic kidneys, lupus, heart murmur, pleurisy, elevated liver enzymes History of Any Multi-Drug Resistant Organisms: None Reported Past Surgical History: Appendectomy, Cholecystectomy, Tonsillectomy Additional Past Surgical History / Comment(s): wisdom teeth removal, colonoscopy and egd, IUD, kidney surgery Past Anesthesia/Blood Transfusion Reactions: Postoperative Nausea & Vomiting (PONV) Past Psychological History: No Psychological Hx Reported Smoking Status: Never smoker Past Alcohol Use History: None Reported Past Drug Use History: Marijuana - Past Family History Mother Family Medical History: Hypertension Additional Family Medical History / Comment(s): hypoglycemic General Exam Limitations: no limitations General appearance: alert, in no apparent distress Head exam: Present: atraumatic, normocephalic Eye exam: Present: normal appearance, PERRL ENT exam: Present: normal exam Neck exam: Present: normal inspection. Absent: tenderness Respiratory exam: Present: rhonchi. Absent: respiratory distress Cardiovascular Exam: Present: regular rate, normal rhythm GI/Abdominal exam: Present: soft. Absent: distended, tenderness, guarding Extremities exam: Present: normal inspection, normal capillary refill. Absent: pedal edema Neurological exam: Present: alert, oriented X3, CN II-XII intact. Absent: motor sensory deficit Psychiatric exam: Present: normal affect, normal mood Skin exam: Present: warm, dry, intact. Absent: cyanosis, diaphoretic Course Vital Signs 04/03/21 04/03/21 08:51 09:12 Temperature 98.7 F Pulse Rate 76 Respiratory 20 17 Rate Blood Pressure 164/88 O2 Sat by Pulse 99 Oximetry Medical Decision Making - Medical Decision Making Coronavirus testing is negative, chest x-ray clear, urinalysis is negative. Patient will follow with her primary care physician. Return parameters discussed. - Lab Data Lab Results 04/03/21 04/03/21 Range/Units 09:08 09:08 Urine Color Yellow Urine Appearance Clear (Clear) Urine pH 6.5 (5.0-8.0) Ur Specific [place] 1.014 (1.001-1.035) Urine Protein Negative (Negative) Urine Glucose (UA) Negative (Negative) Urine Ketones Negative (Negative) Urine Blood Negative (Negative) Urine Nitrite Negative (Negative) Urine Bilirubin Negative (Negative) Urine Urobilinogen <2.0 (<2.0) mg/dL Ur Leukocyte Esterase Small H (Negative) Urine RBC 5 (0-5) /hpf Urine WBC 6 H (0-5) /hpf Ur Squamous Epith Cells 1 (0-4) /hpf Urine Mucus Rare H (None) /hpf Coronavirus (PCR) Not Detected (Not Detectd) Disposition Clinical Impression: Upper respiratory tract infection Disposition: HOME SELF-CARE Condition: Good Instructions (If sedation given, give patient instructions): Upper Respiratory Infection (ED) Is patient prescribed a controlled substance at d/c from ED?: No Referrals: Dony García MD [Primary Care Provider] - 1-2 days Time of Disposition: 10:33
[2021-04-03 09:31] LABS: Appearance,Urine Clear (Clear); Bilirubin,Urine Negative (Negative); Blood,Urine Negative (Negative); Color,Urine Yellow; Glucose,Urine (UA) Negative (Negative); Ketones,Urine Negative (Negative); Leukocyte Esterase,Urine Small (Negative); Mucus,Urine Rare /hpf; Nitrite,Urine Negative (Negative); PH, Urine 6.5 (5.0-8.0); Protein,Urine Negative (Negative); RBC,Urine 5 /hpf (0-5); Specific Gravity,Urine 1.014 (1.001-1.035); Squamous Epithelial Cell,Urine 1 /hpf (0-4); Urobilinogen,Urine <2.0 mg/dL (<2.0); WBC,Urine 6 /hpf (0-5)
--- NOTE | 2021-04-03 09:57 | XR ---
EXAMINATION TYPE: XR chest 2V DATE OF EXAM: 04/03/2021 COMPARISON: 03/20/2021 TECHNIQUE: PA and lateral views submitted. HISTORY: Cough FINDINGS: The lungs are clear and there is no pneumothorax, pleural effusion, or focal pneumonia. Hypertrophi c and degenerative changes of the spine. Heart size normal. IMPRESSION: 1. No acute process.
[2021-04-03 11:08] VITALS: BP 148/92; PULSE 78; RESP 18
== END 2021-04-03 11:08 | disposition home or self-care (01) ==
LOC: EC 08:48
DX: J06.9 Acute upper respiratory infection, unspecified (principal); J45.909 Unspecified asthma, uncomplicated; F12.90 Cannabis use, unspecified, uncomplicated
CPT/HCPCS: 71046; 81001; 87635; 99283

== ENCOUNTER 2021-04-16 23:58 | Emergency (ER) | payer OTHER ==
--- NOTE | 2021-04-17 01:19 | ED ---
General Adult HPI - General Chief complaint: ENT Stated complaint: sore throat, headache Time Seen by Provider: 04/17/21 00:07 Source: patient Mode of arrival: ambulatory Limitations: no limitations - History of Present Illness Initial comments: 45-year-old female with a past medical history of asthma, polycystic kidney disease, lupus presents to the emergency room for a chief complaint of wanting a COVID-19 test. Patient states that she has a little bit of a sore throat and congestion. She states her just tested positive for COVID-19. Patient is concerned her symptoms could be COVID-19 and would also like to be tested. Denies chest pain or shortness of breath.Patient has no other complaints at this time including shortness of breath, chest pain, abdominal pain, nausea or vomiting, headache, or visual changes. - Related Data Previous Rx's Medication Instructions Recorded Albuterol Inhaler [Ventolin Hfa 2 puff INHALATION RT-QID #18 gm 03/20/21 Inhaler] Allergies Allergy/AdvReac Type Severity Reaction Status Date / Time iodine Allergy Rash/Hives Verified 04/17/21 00:01 shellfish derived [Shellfish] Allergy Anaphylaxis Verified 04/17/21 00:01 prednisone AdvReac Severe Increased Verified 04/17/21 00:01 Blood Pressure Review of Systems ROS Statement: Those systems with pertinent positive or pertinent negative responses have been documented in the HPI. ROS Other: All systems not noted in ROS Statement are negative. Past Medical History Past Medical History: Asthma, Chest Pain / Angina, Liver Disease Additional Past Medical History / Comment(s): polycystic kidneys, lupus, heart murmur, pleurisy, elevated liver enzymes History of Any Multi-Drug Resistant Organisms: None Reported Past Surgical History: Appendectomy, Cholecystectomy, Tonsillectomy Additional Past Surgical History / Comment(s): wisdom teeth removal, colonoscopy and egd, IUD, kidney surgery Past Anesthesia/Blood Transfusion Reactions: Postoperative Nausea & Vomiting (PONV) Past Psychological History: No Psychological Hx Reported Smoking Status: Never smoker Past Alcohol Use History: None Reported Past Drug Use History: Marijuana - Past Family History Mother Family Medical History: Hypertension Additional Family Medical History / Comment(s): hypoglycemic General Exam Limitations: no limitations General appearance: alert, in no apparent distress Head exam: Present: atraumatic Eye exam: Present: normal appearance, PERRL, EOMI. Absent: scleral icterus, conjunctival injection ENT exam: Present: normal exam, mucous membranes moist Neck exam: Present: normal inspection, full ROM. Absent: tenderness Respiratory exam: Present: normal lung sounds bilaterally. Absent: respiratory distress, wheezes Cardiovascular Exam: Present: regular rate, normal rhythm, normal heart sounds GI/Abdominal exam: Present: soft, normal bowel sounds. Absent: distended, tenderness Course Vital Signs 04/17/21 00:01 Temperature 98.2 F Pulse Rate 79 Respiratory 20 Rate Blood Pressure 148/85 O2 Sat by Pulse 100 Oximetry Medical Decision Making - Medical Decision Making Vitals are stable. Patient well-appearing. Patient tested negative for COVID- 19. Patient likely has viral upper respiratory infection. Discussed Bam infusion for postexposure prophylaxis. Patient states she gets bad reactions to vaccines that last for up to 6 months at a time and at this point does not want to risk any reactions to the antibodies. Patient can be discharged to follow up with primary care. We do recommend a repeat [place] a test in the next several days. She should return here for any worsening symptoms. - Lab Data Lab Results 04/17/21 Range/Units 00:12 Coronavirus (PCR) Not Detected (Not Detectd) Disposition Clinical Impression: Lab test negative for COVID-19 virus Disposition: HOME SELF-CARE Condition: Good Instructions (If sedation given, give patient instructions): Upper Respiratory Infection (ED) Additional Instructions: Please follow-up with your doctor in one to 2 days. Return to the emergency room for any worsening symptoms. Is patient prescribed a controlled substance at d/c from ED?: No Referrals: Dony García MD [Primary Care Provider] - 1-2 days Time of Disposition: 01:19
[2021-04-17 01:29] VITALS: BP 140/95; PULSE 78; RESP 18; TEMP 97.6
== END 2021-04-17 01:29 | disposition home or self-care (01) ==
LOC: EC 23:58
DX: R07.0 Pain in throat (principal); R51.9 Headache, unspecified; R09.81 Nasal congestion; J45.909 Unspecified asthma, uncomplicated; Z20.822 Contact with and (suspected) exposure to COVID-19; Z88.8 Allergy status to other drugs, medicaments and biological substances; Z91.013 Allergy to seafood
CPT/HCPCS: 87635; 99284

== ENCOUNTER 2021-04-19 10:04 | Emergency (ER) | payer OTHER ==
--- NOTE | 2021-04-19 10:36 | ED ---
URI HPI - General Chief Complaint: Upper Respiratory Infection Stated Complaint: Fever/Bodyaches/Diarrhea Time Seen by Provider: 04/19/21 10:18 Source: patient, RN notes reviewed Mode of arrival: ambulatory Limitations: no limitations - History of Present Illness Initial Comments: This 45-year-old female presents emergency from chief complaint of fever cough congestion body aches. Patient states that her test is positive for COVID-19 she tested -3 days ago but states symptoms have greatly worsened. Patient states that she prefers to be retested. She has no significant chest pain mild cough and shortness of breath. No GI symptoms. - Related Data Previous Rx's Medication Instructions Recorded Albuterol Inhaler [Ventolin Hfa 2 puff INHALATION RT-QID #18 gm 03/20/21 Inhaler] Allergies Allergy/AdvReac Type Severity Reaction Status Date / Time iodine Allergy Rash/Hives Verified 04/19/21 10:14 shellfish derived [Shellfish] Allergy Anaphylaxis Verified 04/19/21 10:14 prednisone AdvReac Severe Increased Verified 04/19/21 10:14 Blood Pressure Review of Systems ROS Statement: Those systems with pertinent positive or pertinent negative responses have been documented in the HPI. ROS Other: All systems not noted in ROS Statement are negative. Past Medical History Past Medical History: Asthma, Chest Pain / Angina, Liver Disease Additional Past Medical History / Comment(s): polycystic kidneys, lupus, heart murmur, pleurisy, elevated liver enzymes History of Any Multi-Drug Resistant Organisms: None Reported Past Surgical History: Appendectomy, Cholecystectomy, Tonsillectomy Additional Past Surgical History / Comment(s): wisdom teeth removal, colonoscopy and egd, IUD, kidney surgery Past Anesthesia/Blood Transfusion Reactions: Postoperative Nausea & Vomiting (PONV) Past Psychological History: No Psychological Hx Reported Smoking Status: Never smoker Past Alcohol Use History: None Reported Past Drug Use History: Marijuana - Past Family History Mother Family Medical History: Hypertension Additional Family Medical History / Comment(s): hypoglycemic General Exam Limitations: no limitations General appearance: alert, in no apparent distress Head exam: Present: atraumatic, normocephalic, normal inspection Eye exam: Present: normal appearance, PERRL, EOMI. Absent: scleral icterus, conjunctival injection, periorbital swelling ENT exam: Present: normal exam, normal oropharynx, mucous membranes moist Neck exam: Present: normal inspection, full ROM. Absent: tenderness, meningismus, lymphadenopathy Respiratory exam: Present: normal lung sounds bilaterally. Absent: respiratory distress, wheezes, rales, rhonchi, stridor Cardiovascular Exam: Present: regular rate, normal rhythm, normal heart sounds. Absent: systolic murmur, diastolic murmur, rubs, gallop, clicks GI/Abdominal exam: Present: soft, normal bowel sounds. Absent: distended, tenderness, guarding, rebound, rigid Course Vital Signs 04/19/21 10:11 Temperature 99.1 F Pulse Rate 93 Respiratory 18 Rate Blood Pressure 136/87 O2 Sat by Pulse 98 Oximetry Medical Decision Making - Medical Decision Making 45-year-old tested positive for covid 19. Patient will receive monoclonal antibodies be discharged in stable condition return parameters were discussed. - Lab Data Lab Results 04/19/21 Range/Units 10:36 Coronavirus (PCR) Detected A (Not Detectd) Disposition Clinical Impression: COVID-19 Disposition: HOME SELF-CARE Condition: Stable Instructions (If sedation given, give patient instructions): Coronavirus Disease 2019 (COVID-19) Additional Instructions: Please return to the Emergency Department if symptoms worsen or any other concerns. Is patient prescribed a controlled substance at d/c from ED?: No Referrals: Dony García MD [Primary Care Provider] - 1-2 days Time of Disposition: 11:16
[2021-04-19] MEDS ORDERED: BAMLANIVIMAB (EUA) 700 MG, ETESEVIMAB (EUA) 1,400 MG in SODIUM CHLORIDE 0.9% 50 ML IVPB ONE (12:00)
[2021-04-19] MEDS ORDERED: SODIUM CHLORIDE 0.9% 50 ML IVPB ONE (12:30)
[2021-04-19 14:15] VITALS: BP 152/92; PULSE 77; RESP 18; TEMP 100
== END 2021-04-19 14:15 | disposition home or self-care (01) ==
LOC: EC 10:04
DX: U07.1 COVID-19 (principal); J45.909 Unspecified asthma, uncomplicated; F12.90 Cannabis use, unspecified, uncomplicated; Z90.49 Acquired absence of other specified parts of digestive tract
CPT/HCPCS: 99283; M0245; 87502; 87635

== ENCOUNTER 2022-04-12 14:45 | Emergency (ER) | payer OTHER ==
[2022-04-12] MEDS ORDERED: SODIUM CHLORIDE 0.9% 1,000 ML IV STA (16:37)
--- NOTE | 2022-04-12 16:45 | ED ---
General Adult HPI - General Chief complaint: ENT Stated complaint: stiff neck,fever, poss meningitis Time Seen by Provider: 04/12/22 16:27 Source: patient, RN notes reviewed Mode of arrival: wheelchair Limitations: no limitations - History of Present Illness Initial comments: This is a pleasant 46-year-old female with a history of asthma, liver disease, and lupus. Patient presents to the emergency department today complaining of headache, body aches, earache, T-max of 104, Stiffness. He has also had nasal congestion with sinus pain. Patient states she was exposed to her daughter who was seen here 3 days ago after having brain surgery for Arnold-Chiari malformation. Apparently her daughter was then diagnosed with sepsis and meningitis. She was transferred to another facility. States that she eventually was diagnosed with "chemical meningitis." Patient concerned about the possibility of meningitis or sound. Patient states she's been using marijuana for symptomatic control. , Myalgias, fatigue No changes in vision or hearing, no sore throat or difficulty with speech, no chest pain or shortness of breath, no abdominal pain, no nausea or vomiting, no changes in urination or bowel movements, no numbness or tingling, no extremity p ain, no skin rashes or lesions. Past medical, surgical, social, and family history reviewed. - Related Data Home Medications Medication Instructions Recorded Confirmed Albuterol Inhaler [Ventolin Hfa 2 puff INHALATION RT-Q6H PRN 04/19/21 04/19/21 Inhaler] Previous Rx's Medication Instructions Recorded Nitrofurantoin Monohyd/M-Cryst 100 mg PO Q12HR #10 cap 04/12/22 [Macrobid] Allergies Allergy/AdvReac Type Severity Reaction Status Date / Time iodine Allergy Rash/Hives Verified 04/12/22 14:54 shellfish derived [Shellfish] Allergy Anaphylaxis Verified 04/12/22 14:54 prednisone AdvReac Severe Increased Verified 04/12/22 14:54 Blood Pressure Review of Systems ROS Statement: Those systems with pertinent positive or pertinent negative responses have been documented in the HPI. ROS Other: All systems not noted in ROS Statement are negative. Past Medical History Past Medical History: Asthma, Chest Pain / Angina, Liver Disease Additional Past Medical History / Comment(s): polycystic kidneys, lupus, heart murmur, pleurisy, elevated liver enzymes History of Any Multi-Drug Resistant Organisms: None Reported Past Surgical History: Appendectomy, Cholecystectomy, Tonsillectomy Additional Past Surgical History / Comment(s): wisdom teeth removal, colonoscopy and egd, IUD, kidney surgery Past Anesthesia/Blood Transfusion Reactions: Postoperative Nausea & Vomiting (PONV) Past Psychological History: No Psychological Hx Reported Smoking Status: Never smoker Past Alcohol Use History: None Reported Past Drug Use History: Marijuana - Past Family History Mother Family Medical History: Hypertension Additional Family Medical History / Comment(s): hypoglycemic General Exam - General Exam Comments Initial Comments: Patient in moderate distress secondary to what appears to be generalized body aches. Patient's vital signs are actually relatively stable. We are noted. Patient has no evidence of mottling. Moist mucous membranes. Capillary refill less than 2 seconds. Limitations: no limitations General appearance: alert, in distress Head exam: Present: atraumatic, normocephalic, normal inspection Eye exam: Present: normal appearance, PERRL, EOMI. Absent: scleral icterus, con junctival injection, periorbital swelling ENT exam: Present: normal exam, normal oropharynx, mucous membranes moist, TM's normal bilaterally, normal external ear exam, other (Patient does have mucoid postnasal drainage with mild posterior pharyngeal erythema. No evidence of purulent drainage. Mucoid nasal discharge.). Absent: mucous membranes dry Neck exam: Present: normal inspection, full ROM, lymphadenopathy (Posterior cervical lymphadenopathy noted.), other (Patient does have discomfort with Brudzinski's. However there is no definitive nuchal rigidity noted. Kernig's is negative.). Absent: meningismus Respiratory exam: Present: normal lung sounds bilaterally. Absent: respiratory distress, wheezes, rales, rhonchi, stridor, chest wall tenderness, accessory muscle use, decreased breath sounds, prolonged expiratory Cardiovascular Exam: Present: regular rate, normal rhythm, normal heart sounds. Absent: systolic murmur, diastolic murmur, rubs, gallop, clicks GI/Abdominal exam: Present: soft, normal bowel sounds. Absent: distended, tenderness, guarding, rebound, rigid Extremities exam: Present: normal inspection, full ROM, normal capillary refill. Absent: tenderness, pedal edema, joint swelling, calf tenderness Back exam: Present: normal inspection Neurological exam: Present: alert, oriented X3, CN II-XII intact Psychiatric exam: Present: normal affect, normal mood Skin exam: Present: warm, dry, intact, normal color. Absent: rash, cyanosis, diaphoretic, erythema, urticaria Course Vital Signs 04/12/22 14:50 Temperature 99.3 F Pulse Rate 88 Respiratory 20 Rate Blood Pressure 157/86 O2 Sat by Pulse 100 Oximetry - Reevaluation(s) Reevaluation #1: 04/12/22 18:33 Medical record is reviewed Symptoms are improved here in the emergency department Patient is informed of results and questions answered Patient in no distress Medical Decision Making - Medical Decision Making Patient presents symptomology most consistent with viral syndrome. Differential diagnosis: Influenza, COVID-19, other viral etiologies such as RSV adenovirus. Simple, cholelithiasis also within the differential. Some neck discomfort and apparently was exposed to her daughter was diagnosed with "chemical meningitis" Patient really has a negative Brudzinski's and Kernig's. I think meningitis is a relatively remote possibility. Patient cannot positive for COVID-19. Discussed conservative therapy. Discussed quarantine measures. Discussed masking. I did consider Paxil bit. However, after a long discussion with the patient patient is deferring this. Shared decision-making. Patient states she would rather not take a prescription medicine and would prefer to use natural remedies. Patient's CBC and CMP were essentially unremarkable. Urinalysis did show evidence of concentration. Possible early UTI However, patient has no voiding irritation. Suspect this is only related to mild dehydration. I did send a prescription for Macrobid in case the patient develops any symptomology. Did consider starting antibiotics here in the ER. However I do believe the urinalysis is due to dehydration and concentration. Patient has no irritative voiding. Delayed prescription sent for Macrobid. Discussed with the patient detail. Patient concurs with this treatment plan. Given the patient's concerns, we did discuss further investigations to include lumbar puncture. However given the fact the patient has tested positive for COVID-19 I believe this gives us the answer to the patient symptomology. After a long discussion patient is deferring any further testing Patient was told to return to the ER for any signs or symptoms worsen. Told to return immediately if any other problems arise. All questions answered. Treatment plan discussed. Patient in agreement Every effort has been made to ensure accuracy of this dictation. However, due t o the limitations of electronic medical records and dictation devices, errors in charting still occur. The case was discussed in detail with ED attending physician. Presentation, findings, treatment plan discussed in detail. Supervising physician is Dr. Castañeda - Lab Data Result diagrams: 04/12/22 16:49 04/12/22 16:49 Lab Results 04/12/22 04/12/22 04/12/22 Range/Units 16:49 16:49 16:49 WBC 8.8 (3.8-10.6) k/uL RBC 4.91 (3.80-5.40) m/uL Hgb 14.7 (11.4-16.0) gm/dL Hct 43.4 (34.0-46.0) % MCV 88.3 (80.0-100.0) fL MCH 29.9 (25.0-35.0) pg MCHC 33.9 (31.0-37.0) g/dL RDW 12.7 (11.5-15.5) % Plt Count 244 (150-450) k/uL MPV 8.5 Neutrophils % 77 % Lymphocytes % 14 % Monocytes % 6 % Eosinophils % 0 % Basophils % 1 % Neutrophils # 6.8 (1.3-7.7) k/uL Lymphocytes # 1.2 (1.0-4.8) k/uL Monocytes # 0.5 (0-1.0) k/uL Eosinophils # 0.0 (0-0.7) k/uL Basophils # 0.1 (0-0.2) k/uL Sodium 141 (137-145) mmol/L Potassium 4.0 (3.5-5.1) mmol/L Chloride 105 (98-107) mmol/L Carbon Dioxide 24 (22-30) mmol/L Anion Gap 12 mmol/L BUN 15 (7-17) mg/dL Creatinine 0.65 (0.52-1.04) mg/dL Est GFR (CKD-EPI)AfAm >90 (>60 ml/min/1.73 sqM) Est GFR (CKD-EPI)NonAf >90 (>60 ml/min/1.73 sqM) Glucose 86 (74-99) mg/dL Plasma Lactic Acid Antwon (0.7-2.0) mmol/L Calcium 9.4 (8.4-10.2) mg/dL Total Bilirubin 1.2 (0.2-1.3) mg/dL AST 38 H (14-36) U/L ALT 34 (4-34) U/L Alkaline Phosphatase 109 (38-126) U/L Total Protein 8.3 H (6.3-8.2) g/dL Albumin 4.7 (3.5-5.0) g/dL HCG, Qual Not Detected Urine Color Yellow Urine Appearance Cloudy H (Clear) Urine pH 7.0 (5.0-8.0) Ur Specific Matthews 1.024 (1.001-1.035) Urine Protein Trace H (Negative) Urine Glucose (UA) Negative (Negative) Urine Ketones 1+ H (Negative) Urine Blood Small H (Negative) Urine Nitrite Negative (Negative) Urine Bilirubin Negative (Negative) Urine Urobilinogen <2.0 (<2.0) mg/dL Ur Leukocyte Esterase Large H (Negative) Urine RBC 13 H (0-5) /hpf Urine WBC 18 H (0-5) /hpf Ur Squamous Epith Cells 7 H (0-4) /hpf Urine Bacteria Moderate H (None) /hpf Urine Mucus Occasional H (None) /hpf Influenza Type A (PCR) (Not Detectd) Influenza Type B (PCR) (Not Detectd) RSV (PCR) (Not Detectd) SARS-CoV-2 (PCR) (Not Detectd) 04/12/22 04/12/22 Range/Units 16:49 16:49 WBC (3.8-10.6) k/uL RBC (3.80-5.40) m/uL Hgb (11.4-16.0) gm/dL Hct (34.0-46.0) % MCV (80.0-100.0) fL MCH (25.0-35.0) pg MCHC (31.0-37.0) g/dL RDW (11.5-15.5) % Plt Count (150-450) k/uL MPV Neutrophils % % Lymphocytes % % Monocytes % % Eosinophils % % Basophils % % Neutrophils # (1.3-7.7) k/uL Lymphocytes # (1.0-4.8) k/uL Monocytes # (0-1.0) k/uL Eosinophils # (0-0.7) k/uL Basophils # (0-0.2) k/uL Sodium (137-145) mmol/L Potassium (3.5-5.1) mmol/L Chloride (98-107) mmol/L Carbon Dioxide (22-30) mmol/L Anion Gap mmol/L BUN (7-17) mg/dL Creatinine (0.52-1.04) mg/dL Est GFR (CKD-EPI)AfAm (>60 ml/min/1.73 sqM) Est GFR (CKD-EPI)NonAf (>60 ml/min/1.73 sqM) Glucose (74-99) mg/dL Plasma Lactic Acid Antwon 1.3 (0.7-2.0) mmol/L Calcium (8.4-10.2) mg/dL Total Bilirubin (0.2-1.3) mg/dL AST (14-36) U/L ALT (4-34) U/L Alkaline Phosphatase (38-126) U/L Total Protein (6.3-8.2) g/dL Albumin (3.5-5.0) g/dL HCG, Qual Urine Color Urine Appearance (Clear) Urine pH (5.0-8.0) Ur Specific Matthews (1.001-1.035) Urine Protein (Negative) Urine Glucose (UA) (Negative) Urine Ketones (Negative) Urine Blood (Negative) Urine Nitrite (Negative) Urine Bilirubin (Negative) Urine Urobilinogen (<2.0) mg/dL Ur Leukocyte Esterase (Negative) Urine RBC (0-5) /hpf Urine WBC (0-5) /hpf Ur Squamous Epith Cells (0-4) /hpf Urine Bacteria (None) /hpf Urine Mucus (None) /hpf Influenza Type A (PCR) Not Detected (Not Detectd) Influenza Type B (PCR) Not Detected (Not Detectd) RSV (PCR) Not Detected (Not Detectd) SARS-CoV-2 (PCR) Detected A (Not Detectd) - Radiology Data Radiology results: report reviewed, image reviewed Independent interpretation of the chest x-ray by me reveals no acute pathology. Reviewed the radiology interpretation Disposition Clinical Impression: COVID-19, Acute viral syndrome, Dehydration, Abnormal urinalysis Disposition: HOME SELF-CARE Instructions (If sedation given, give patient instructions): Coronavirus Disease 2019 (COVID-19) Additional Instructions: SELF QUARANTINE DISCHARGE: As you are at risk for symptoms due to coronavirus, please stay home and stay away from others as much as possible. Please maintain social distance of 6 feet if possible. You should not return to work until at least 3 days (72 hours) have passed since recovery of symptoms. This defined as resolution of fever without the use of fever reducing medicines and improvement in respiratory symptoms (e.g,, cough, shortness of breath) Isolation can end at least 5 days after symptom onset and after fever ends for 24 hours (without the use of fever-reducing medication) and symptoms are improving, if these people can continue to properly wear a well-fitted mask around others for 5 more days after the 5-day isolation period. If you're still having symptoms at the end of 5 day period, isolate for an additional 5 days. More information about what to do if you are sick can be found on the CDC website at https://www.cdc.gov/coronavirus/2019-ncov/ix-izd-ysm-sick/step s-when-sick.html Expect the symptoms to last for 7-14 days from onset. Use acetaminophen (Tylenol) as needed for discomfort. You can take a maximum of 1 gram every 6 hours for discomfort, with your total dose in 24 hours not exceeding 4 grams. Be sure to maintain hydration. Drink continuous water and/or items high in vitamin C, such as orange juice and/or lemonade. Unless you have high blood pressure, you may consider Sudafed (which is [id number]) for nasal congestion. I would suggest that a short acting Sudafed rather than the 24 hour Sudafed. For a cough you may take Mucinex or Robitussin. Also consider the use of Vicks Vapor Rub or your chest when you sleep. Use a humidifier that is cleaned frequently, in the bedroom at night. For Nausea /Vomiting/Diarrhea associated with your Illness: o Small frequent sips of room temperature liquids. o Diet: [employer] - If you are still experiencing discomfort and/or nausea please slowly advancing your diet using the BRAT Diet = bananas, rice, apples/apple sauce, toast. o With diarrhea avoid any dairy for 48 hours after symptoms resolved. o Continue with activity as tolerated. If your symptoms do get worse and you believe that the upper respiratory infection has developed into something else, such as pneumonia or severe dehydration, please return to the emergency department or follow-up with your primary care. But expect to be symptomatic for the days as indicated above Prescriptions: Nitrofurantoin Monohyd/M-Cryst [Macrobid] 100 mg PO Q12HR #10 cap Is patient prescribed a controlled substance at d/c from ED?: No Referrals: None,Stated [REFERRING] - 1-2 days Time of Disposition: 18:33
[2022-04-12 17:19] LABS: Basophils # (A) 0.1 k/uL (0-0.2); Basophils % (A) 1 %; Eosinophils % (A) 0 %; HCT 43.4 % (34.0-46.0); HGB 14.7 gm/dL (11.4-16.0); Lymphocytes # (A) 1.2 k/uL (1.0-4.8); Lymphocytes % (A) 14 %; MCH 29.9 pg (25.0-35.0); MCHC 33.9 g/dL (31.0-37.0); MCV 88.3 fL (80.0-100.0); Mean Platelet Volume 8.5; Monocytes # (A) 0.5 k/uL (0-1.0); Monocytes % (A) 6 %; Neutrophils # (A) 6.8 k/uL (1.3-7.7); Neutrophils % (A) 77 %; Platelet Count 244 k/uL (150-450); RBC 4.91 m/uL (3.80-5.40); RDW 12.7 % (11.5-15.5); WBC 8.8 k/uL (3.8-10.6)
[2022-04-12 17:27] LABS: Appearance,Urine Cloudy (Clear); Bacteria,Urine Moderate /hpf; Bilirubin,Urine Negative (Negative); Blood,Urine Small (Negative); Color,Urine Yellow; Glucose,Urine (UA) Negative (Negative); Ketones,Urine 1+ (Negative); Leukocyte Esterase,Urine Large (Negative); Mucus,Urine Occasional /hpf; Nitrite,Urine Negative (Negative); Protein,Urine Trace (Negative); RBC,Urine 13 /hpf (0-5); Specific Gravity,Urine 1.024 (1.001-1.035); Squamous Epithelial Cell,Urine 7 /hpf (0-4); Urobilinogen,Urine <2.0 mg/dL (<2.0); WBC,Urine 18 /hpf (0-5)
--- NOTE | 2022-04-12 17:29 | XR ---
EXAMINATION TYPE: XR chest 1V portable DATE OF EXAM: 04/12/2022 COMPARISON: 04/03/2021 HISTORY: Cough TECHNIQUE: Single frontal view of the chest is obtained. FINDINGS: There is no focal air space opacity, pleural effusion, or pneumothorax seen. The cardiac silhouette size is within normal limits. The osseous structures are intact. IMPRESSION: No acute process.
[2022-04-12 17:31] LABS: HCG,Qualitative Serum Not Detected
[2022-04-12 17:33] LABS: ALT 34 U/L (4-34); African American GFR (CKD) >90 (>60 ml/min/1.73 sqM); Albumin 4.7 g/dL (3.5-5.0); Anion Gap 12 mmol/L; Blood Urea Nitrogen 15 mg/dL (7-17); Calcium 9.4 mg/dL (8.4-10.2); Carbon Dioxide 24 mmol/L (22-30); Chloride 105 mmol/L (98-107); Glucose 86 mg/dL (74-99); Non-African American GFR(CKD) >90 (>60 ml/min/1.73 sqM); Sodium 141 mmol/L (137-145); Total Bilirubin 1.2 mg/dL (0.2-1.3); Total Protein 8.3 g/dL (6.3-8.2)
[2022-04-12 17:45] LABS: AST 38 U/L (14-36); Alkaline Phosphatase 109 U/L (38-126)
[2022-04-12 19:24] VITALS: BP 178/93; PULSE 89; RESP 18; TEMP 99.1
== END 2022-04-12 19:26 | disposition home or self-care (01) ==
LOC: EC 14:45
DX: R82.90 Unspecified abnormal findings in urine (principal); E86.0 Dehydration; B34.9 Viral infection, unspecified; J45.909 Unspecified asthma, uncomplicated; F12.90 Cannabis use, unspecified, uncomplicated; U07.1 COVID-19; Z88.8 Allergy status to other drugs, medicaments and biological substances; Z79.899 Other long term (current) drug therapy; Z91.041 Radiographic dye allergy status; Z91.013 Allergy to seafood
CPT/HCPCS: 36415; 71045; 80053; 81001; 83605; 84703; 85025; 87040; 87086; 87636; 96360; 99283

== ENCOUNTER 2022-09-20 20:50 | Emergency (ER) | payer OTHER ==
[2022-09-20 22:16] VITALS: RESP 20
--- NOTE | 2022-09-20 23:11 | ED ---
General Adult HPI - General Chief complaint: Extremity Injury, Lower Stated complaint: Right Foot Injury Time Seen by Provider: 09/20/22 22:18 Source: patient, RN notes reviewed Mode of arrival: wheelchair Limitations: no limitations - History of Present Illness Initial comments: 46-year-old female with no significant past medical history presents the emergency department with a chief complaint of right ankle pain. Patient reports that she was at a gym prior to arrival where she was switching out a 25 pound plate. She reports the 25 pound plate fell on her right foot. She is complaining of worsening pain and oozing to the area. She has taken holistic remedies prior to arrival. Patient denies any numbness, tingling, weakness in the extremity. - Related Data Home Medications Medication Instructions Recorded Confirmed Albuterol Inhaler [Ventolin Hfa 2 puff INHALATION RT-Q6H PRN 04/19/21 04/19/21 Inhaler] Previous Rx's Medication Instructions Recorded Nitrofurantoin Monohyd/M-Cryst 100 mg PO Q12HR #10 cap 04/12/22 [Macrobid] Ondansetron Odt [Zofran Odt] 4 mg PO Q6HR PRN #20 tab 04/12/22 Allergies Allergy/AdvReac Type Severity Reaction Status Date / Time iodine Allergy Rash/Hives Verified 09/20/22 22:16 shellfish derived [Shellfish] Allergy Anaphylaxis Verified 09/20/22 22:16 prednisone AdvReac Severe Increased Verified 09/20/22 22:16 Blood Pressure Review of Systems ROS Statement: Those systems with pertinent positive or pertinent negative responses have been documented in the HPI. ROS Other: All systems not noted in ROS Statement are negative. Past Medical History Past Medical History: Asthma, Chest Pain / Angina, Liver Disease Additional Past Medical History / Comment(s): polycystic kidneys, lupus, heart murmur, pleurisy, elevated liver enzymes History of Any Multi-Drug Resistant Organisms: None Reported Past Surgical History: Appendectomy, Cholecystectomy, Tonsillectomy Additional Past Surgical History / Comment(s): wisdom teeth removal, colonoscopy and egd, IUD, kidney surgery Past Anesthesia/Blood Transfusion Reactions: Postoperative Nausea & Vomiting (PONV) Past Psychological History: No Psychological Hx Reported Smoking Status: Never smoker Past Alcohol Use History: None Reported Past Drug Use History: Marijuana - Past Family History Mother Family Medical History: Hypertension Additional Family Medical History / Comment(s): hypoglycemic General Exam - General Exam Comments Initial Comments: General: Alert, in no acute distress Head: atraumatic normocephalic. Eyes PERRL, EOMI intact, mucous membranes moist Respiratory: Lungs clear to auscultation bilaterally Cardiovascular: Heart rate regular rate and rhythm Abdominal: Soft without guarding or rebound Extremities: Normal inspection with full range of motion and normal capillary refill, right ankle with mild ecchymosis to 1st and second metatarsal region, no crepitus, 2+ DP/PT pulses, distal NVI Neuroogic: alert and oriented 3, CN II-XII intact, able to ambulate with steady gait Skin: warm dry and intact with normal color Limitations: no limitations Course Vital Signs 09/20/22 09/21/22 22:12 00:41 Temperature 98.1 F 98.2 F Pulse Rate 74 69 Respiratory 20 20 Rate Blood Pressure 151/89 147/83 O2 Sat by Pulse 100 100 Oximetry Medical Decision Making - Medical Decision Making Was pt. sent in by a medical professional or institution (Dr. PA, [employer], urgent care, hospital, or retirement...) When possible be specific @ -[No] Did you speak to anyone other than the patient for history (EMS, parent, family, police, friend...)? What history was obtained from this source @ -[No] Did you review nursing and triage notes (agree or disagree)? Why? @ -[I reviewed and agree with nursing and triage notes] Were old charts reviewed (outside hosp., previous admission, EMS record, old EKG, old radiological studies, urgent care reports/EKG's, retirement records)? Report findings @ -[No old charts were reviewed] Differential Diagnosis (chest pain, altered mental status, abdominal pain women, abdominal pain men, vaginal bleeding, weakness, fever, dyspnea, syncope, headache, dizziness, GI bleed, back pain, seizure, CVA, palpatations, mental health, musculoskeletal)? @ -[not applicable] EKG interpreted by me (3pts min.). @ -[As above] X-rays interpreted by me (1pt min.). @ -X-ray negative for acute fracture dislocation CT interpreted by me (1pt min.). @ -[None done] U/S interpreted by me (1pt. min.). @ -[None done] What testing was considered but not performed or refused? (CT, X-rays, U/S, labs)? Why? @ -[None] What meds were considered but not given or refused? Why? @ -[None] Did you discuss the management of the patient with other professionals (professionals i.e. , PA, [employer], lab, RT, psych nurse, social director, drawing instructor, teacher, licensed loan officer assistant, watch case polisher)? Give summary @ -[No] Was smoking cessation discussed for >3mins.? @ -[No] Was critical care preformed (if so, how long)? @ -[No] Were there social determinants of health that impacted care today? How? (Homelessness, low income, unemployed, alcoholism, drug addiction, transportation, low edu. Level, literacy, decrease access to med. care, assisted, rehab)? @ -[No] Was there de-escalation of care discussed even if they declined (Discuss DNR or withdrawal of care, Hospice)? DNR status @ -[No] What co-morbidities impacted this encounter? (DM, HTN, Smoking, COPD, CAD, Cancer, CVA, ARF, Chemo, Hep., AIDS, mental health diagnosis, sleep apnea, morbid obesity)? @ -[None] Was patient admitted / discharged? Hospital course, mention meds given and route, prescriptions, significant lab abnormalities, going to OR and other pertinent info. @ -Discharged. This is a 46-year-old female presents to the emergency department with right foot pain. Patient had a thorough history and physical exam performed while in the ED. Physical exam is essentially unremarkable heart rate regular rate and rhythm, lung sounds clear to auscultation bilaterally abdomen, abdomen soft and non-tender. Left finger without edema, erythema, non-tender. 2+ radial pulses. Patient had lab work and imaging performed which is essentially unremarkable. I discussed results in detail with the patient verbalized understanding and all questions were addressed. She was given Toradol patch with symptomatic relief on the ED. Return precautions were discussed at length. Patient discharged in stable condition. Case discussed with ASHER Germain who agrees with plan of care Undiagnosed new problem with uncertain prognosis? @ -[No] Drug Therapy requiring intensive monitoring for toxicity (Heparin, Nitro, Insulin, Cardizem)? @ -[No] Were any procedures done? @ -[No] Diagnosis/symptom? @ -Right Foot Pain Acute, or Chronic, or Acute on Chronic? @ -acute Uncomplicated (without systemic symptoms) or Complicated (systemic symptoms)? @ -[default] Side effects of treatment? @ -[No] Exacerbation, Progression, or Severe Exacerbation? @ -[No] Poses a threat to life or bodily function? How? (Chest pain, [place], [place], pneumonia, PE, COPD, DKA, ARF, appy, cholecystitis, CVA, Diverticulitis, Homicidal, Suicidal, threat to staff... and all critical care pts) @ -low likelihood Disposition Clinical Impression: Right foot sprain Disposition: HOME SELF-CARE Condition: Stable Instructions (If sedation given, give patient instructions): Foot Sprain (ED) Additional Instructions: Use Tylenol and Motrin as needed for pain Elevate the extremity Please return to the nearest emergency department symptoms worsen or persist Is patient prescribed a controlled substance at d/c from ED?: No Referrals: Herman Painting Jr, DO [Primary Care Provider] - 1-2 days Aimee Murray DO [Doctor of Osteopathic Medicine] - 1-2 days Time of Disposition: 00:35
--- NOTE | 2022-09-21 00:33 | XR ---
EXAM: XR Right Foot Complete, 3 or More Views CLINICAL HISTORY: ITS.REASON XR Reason: right foot ain TECHNIQUE: Frontal, lateral and oblique views of the right foot. COMPARISON: No relevant prior studies available. FINDINGS: Bones/joints: Posterior and plantar calcaneal enthesopathy. No acute fracture or dislocation. Soft tissues: Unremarkable. No radiopaque foreign body. IMPRESSION: No acute findings in the right foot.
[2022-09-21 00:43] VITALS: BP 147/83; PULSE 69; TEMP 98.2
== END 2022-09-21 01:03 | disposition home or self-care (01) ==
LOC: EC 20:50
DX: S93.601A Unspecified sprain of right foot, initial encounter (principal); J45.909 Unspecified asthma, uncomplicated; F12.90 Cannabis use, unspecified, uncomplicated; Z79.899 Other long term (current) drug therapy; Z91.013 Allergy to seafood; Z88.8 Allergy status to other drugs, medicaments and biological substances; W20.8XXA Other cause of strike by thrown, projected or falling object, initial encounter; Y92.39 Other specified sports and athletic area as the place of occurrence of the external cause
CPT/HCPCS: 99283

== ENCOUNTER 2022-11-12 08:53 | Emergency (ER) | payer OTHER ==
[2022-11-12 08:59] VITALS: TEMP 98.1
[2022-11-12 09:18] LABS: Mucus,Urine Rare /hpf; RBC,Urine 5 /hpf (0-5); WBC,Urine 3 /hpf (0-5)
[2022-11-12 09:21] LABS: Color,Urine Dark Orange
[2022-11-12] MEDS ORDERED: KETOROLAC 15 MG/ML 1 ML VIAL IVP STA (09:32)
--- NOTE | 2022-11-12 09:33 | ED ---
General Adult HPI - General Chief complaint: Urogenital Stated complaint: Vomiting Time Seen by Provider: 11/12/22 08:56 Source: patient Mode of arrival: ambulatory Limitations: no limitations - History of Present Illness Initial comments: Dictation was produced using [employer] dictation software. please excuse any grammatical, word or spelling errors. Chief Complaint: 46-year-old female with extensive nephrolithiasis history presents to the ER for bilateral flank pain History of Present Illness: Is a 46-year-old female she apparently has extensive kidney stone history. She sees a specialist in the [facility]. The last 7 days she is had bilateral flank pain. States it radiates down both flanks down to the groin. She has dysuria and suprapubic pain as well. Patient has had multiple procedures to treat kidney stones. She states she does have history of infected kidney stones. Denies any fever. No constitutional symptoms. The ROS documented in this emergency department record has been reviewed and confirmed by me. Those systems with pertinent positive or negative responses have been documented in the HPI. All other systems are other negative and/or noncontributory. - Related Data Home Medications Medication Instructions Recorded Confirmed Phenazopyridine HCl 95 mg PO TID PRN 11/12/22 11/12/22 Allergies Allergy/AdvReac Type Severity Reaction Status Date / Time iodine Allergy Rash/Hives Verified 11/12/22 10:21 shellfish derived [Shellfish] Allergy Anaphylaxis Verified 11/12/22 10:21 prednisone AdvReac Severe Increased Verified 11/12/22 10:21 Blood Pressure Review of Systems ROS Statement: Those systems with pertinent positive or pertinent negative responses have been documented in the HPI. ROS Other: All systems not noted in ROS Statement are negative. Past Medical History Past Medical History: Asthma, Chest Pain / Angina, Liver Disease Additional Past Medical History / Comment(s): polycystic kidneys, lupus, heart murmur, pleurisy, elevated liver enzymes History of Any Multi-Drug Resistant Organisms: None Reported Past Surgical History: Appendectomy, Cholecystectomy, Tonsillectomy Additional Past Surgical History / Comment(s): wisdom teeth removal, colonoscopy and egd, IUD, kidney surgery Past Anesthesia/Blood Transfusion Reactions: Postoperative Nausea & Vomiting (PONV) Past Psychological History: No Psychological Hx Reported Smoking Status: Never smoker Past Alcohol Use History: None Reported Past Drug Use History: Marijuana - Past Family History Mother Family Medical History: Hypertension Additional Family Medical History / Comment(s): hypoglycemic General Exam - General Exam Comments Initial Comments: PHYSICAL EXAM: General Impression: Alert and oriented x3, mild distress secondary to pain HEENT: Normocephalic atraumatic, extra-ocular movements intact, pupils equal and reactive to light bilaterally, mucous membranes moist. Cardiovascular: Heart regular rate and rhythm Chest: Able to complete full sentences, no retractions, no tachypnea Abdomen: abdomen soft, non-tender, non-distended, no organomegaly Musculoskeletal: Pulses present and equal in all extremities, no peripheral edema Motor: no focal deficits noted Neurological: CN II-XII grossly intact, no focal motor or sensory deficits noted Skin: Intact with no visualized rashes Psych: Tearful Limitations: no limitations Course Vital Signs 11/12/22 08:56 Temperature 98.1 F Pulse Rate 57 L Respiratory 16 Rate Blood Pressure 168/96 O2 Sat by Pulse 98 Oximetry Medical Decision Making - Medical Decision Making Was pt. sent in by a medical professional or institution (WAYNE Sheppard, PALS SPECIALIST, urgent care, hospital, or snf...) When possible be specific @ -No Did you speak to anyone other than the patient for history (EMS, parent, family, police, friend...)? What history was obtained from this source @ -No Did you review nursing and triage notes (agree or disagree)? Why? @ -I reviewed and agree with nursing and triage notes Were old charts reviewed (outside hosp., previous admission, EMS record, old EKG, old radiological studies, urgent care reports/EKG's, snf records)? Report findings @ -No old charts were reviewed Differential Diagnosis (chest pain, altered mental status, abdominal pain women, abdominal pain men, vaginal bleeding, musculoskeletal, weakness, fever, dyspnea, syncope, headache, dizziness, GI bleed, back pain, seizure, CVA, palpatations, mental health)? @ -not applicable EKG interpreted by me (3pts min.). @ -None done X-rays interpreted by me (1pt min.). @ -None done CT interpreted by me (1pt min.). @ -CT scan of the abdomen and pelvis without contrast shows no acute processes. U/S interpreted by me (1pt. min.). @ -None done What testing was considered but not performed or refused? (CT, X-rays, U/S, labs)? Why? @ -None What meds were considered but not given or refused? Why? @ -None Did you discuss the management of the patient with other professionals (professionals i.e. , PA, PALS SPECIALIST, lab, RT, psych nurse, psychotherapist social worker, retail salesworker, teacher, special service officer, case repairer)? Give summary @ -No Was smoking cessation discussed for >3mins.? @ -No Was critical care preformed (if so, how long)? @ -No Were there social determinants of health that impacted care today? How? (Homelessness, low income, unemployed, alcoholism, drug addiction, transportation, low edu. Level, literacy, decrease access to med. care, custodial, rehab)? @ -No Was there de-escalation of care discussed even if they declined (Discuss DNR or withdrawal of care, Hospice)? DNR status @ -No What co-morbidities impacted this encounter? (DM, HTN, Smoking, COPD, CAD, Cancer, CVA, ARF, Chemo, Hep., AIDS, mental health diagnosis, sleep apnea, morbid obesity)? @ -None Was patient admitted / discharged? Hospital course, mention meds given and route, prescriptions, significant lab abnormalities, going to OR and other pertinent info. @ -46-year-old female presents to the emergency department for bilateral flank pain. Vital signs upon arrival are within acceptable limits. Laboratory evaluation obtained. CBC notable panel is unremarkable. Urinalysis is negati ve. Computed tomography scan is negative. Patient reevaluated bedside finally stable medical condition. Patient will be discharged told to follow-up with her primary care doctor. Undiagnosed new problem with uncertain prognosis? @ -No Drug Therapy requiring intensive monitoring for toxicity (Heparin, Nitro, Insulin, Cardizem)? @ -No Were any procedures done? @ -No Diagnosis/symptom? Acute, or Chronic, or Acute on Chronic? Uncomplicated (without systemic symptoms) or Complicated (systemic symptoms)? @ -. Bilateral flank pain, no obvious source, no high-risk features Side effects of treatment? @ -No Exacerbation, Progression, or Severe Exacerbation? @ -No Poses a threat to life or bodily function? How? (Chest pain, [place], [place], pneumonia, PE, COPD, DKA, ARF, appy, cholecystitis, CVA, Diverticulitis, Homicidal, Suicidal, threat to staff... and all critical care pts) @ -No - Lab Data Result diagrams: 11/12/22 09:36 11/12/22 09:36 Lab Results 11/12/22 11/12/22 11/12/22 Range/Units 09:07 09:07 09:36 WBC 6.4 (3.8-10.6) k/uL RBC 4.73 (3.80-5.40) m/uL Hgb 14.2 (11.4-16.0) gm/dL Hct 43.0 (34.0-46.0) % MCV 90.8 (80.0-100.0) fL MCH 29.9 (25.0-35.0) pg MCHC 33.0 (31.0-37.0) g/dL RDW 12.9 (11.5-15.5) % Plt Count 273 (150-450) k/uL MPV 8.0 Neutrophils % 65 % Lymphocytes % 25 % Monocytes % 5 % Eosinophils % 3 % Basophils % 1 % Neutrophils # 4.1 (1.3-7.7) k/uL Lymphocytes # 1.6 (1.0-4.8) k/uL Monocytes # 0.3 (0-1.0) k/uL Eosinophils # 0.2 (0-0.7) k/uL Basophils # 0.0 (0-0.2) k/uL Sodium (137-145) mmol/L Potassium (3.5-5.1) mmol/L Chloride (98-107) mmol/L Carbon Dioxide (22-30) mmol/L Anion Gap mmol/L BUN (7-17) mg/dL Creatinine (0.52-1.04) mg/dL Est GFR (CKD-EPI)AfAm (>60 ml/min/1.73 sqM) Est GFR (CKD-EPI)NonAf (>60 ml/min/1.73 sqM) Glucose (74-99) mg/dL Calcium (8.4-10.2) mg/dL Total Bilirubin (0.2-1.3) mg/dL AST (14-36) U/L ALT (4-34) U/L Alkaline Phosphatase (38-126) U/L Total Protein (6.3-8.2) g/dL Albumin (3.5-5.0) g/dL Urine Color Dark [place] Urine Appearance (Clear) Urine RBC 5 (0-5) /hpf Urine WBC 3 (0-5) /hpf Urine Mucus Rare H (None) /hpf Urine HCG, Qual Not Detected (Not Detectd) 11/12/22 Range/Units 09:36 WBC (3.8-10.6) k/uL RBC (3.80-5.40) m/uL Hgb (11.4-16.0) gm/dL Hct (34.0-46.0) % MCV (80.0-100.0) fL MCH (25.0-35.0) pg MCHC (31.0-37.0) g/dL RDW (11.5-15.5) % Plt Count (150-450) k/uL MPV Neutrophils % % Lymphocytes % % Monocytes % % Eosinophils % % Basophils % % Neutrophils # (1.3-7.7) k/uL Lymphocytes # (1.0-4.8) k/uL Monocytes # (0-1.0) k/uL Eosinophils # (0-0.7) k/uL Basophils # (0-0.2) k/uL Sodium 139 (137-145) mmol/L Potassium 4.3 (3.5-5.1) mmol/L Chloride 105 (98-107) mmol/L Carbon Dioxide 24 (22-30) mmol/L Anion Gap 10 mmol/L BUN 18 H (7-17) mg/dL Creatinine 0.60 (0.52-1.04) mg/dL Est GFR (CKD-EPI)AfAm >90 (>60 ml/min/1.73 sqM) Est GFR (CKD-EPI)NonAf >90 (>60 ml/min/1.73 sqM) Glucose 99 (74-99) mg/dL Calcium 9.6 (8.4-10.2) mg/dL Total Bilirubin 0.9 (0.2-1.3) mg/dL AST 32 (14-36) U/L ALT 29 (4-34) U/L Alkaline Phosphatase 90 (38-126) U/L Total Protein 7.8 (6.3-8.2) g/dL Albumin 4.5 (3.5-5.0) g/dL Urine Color Urine Appearance (Clear) Urine RBC (0-5) /hpf Urine WBC (0-5) /hpf Urine Mucus (None) /hpf Urine HCG, Qual (Not Detectd) Disposition Clinical Impression: Flank pain Disposition: HOME SELF-CARE Condition: Good Instructions (If sedation given, give patient instructions): Flank Pain (ED) Is patient prescribed a controlled substance at d/c from ED?: No Referrals: Herman Painting Jr, DO [Primary Care Provider] - 1-2 days Time of Disposition: 10:41
[2022-11-12 09:57] LABS: Basophils % (A) 1 %; Eosinophils # (A) 0.2 k/uL (0-0.7); Eosinophils % (A) 3 %; HGB 14.2 gm/dL (11.4-16.0); Lymphocytes # (A) 1.6 k/uL (1.0-4.8); Lymphocytes % (A) 25 %; MCH 29.9 pg (25.0-35.0); MCV 90.8 fL (80.0-100.0); Monocytes # (A) 0.3 k/uL (0-1.0); Monocytes % (A) 5 %; Neutrophils # (A) 4.1 k/uL (1.3-7.7); Neutrophils % (A) 65 %; Platelet Count 273 k/uL (150-450); RBC 4.73 m/uL (3.80-5.40); RDW 12.9 % (11.5-15.5); WBC 6.4 k/uL (3.8-10.6)
--- NOTE | 2022-11-12 10:00 | CT ---
EXAMINATION TYPE: CT abdomen pelvis wo con DATE OF EXAM: 11/12/2022 COMPARISON: 12/09/2018 HISTORY: bilateral flank pain r/o renal stones or bladder infection CT DLP: 949.4 mGycm Examination of the solid and hollow viscera is limited given the lack of contrast. FINDINGS: LUNG BASES: No evidence for nodule. No evidence for infiltrate. LIVER/GB: The gallbladder is surgically absent. No space-occupying hepatic lesion. PANCREAS: No pancreatic mass identified. No inflammatory process seen. Focal calcification pancreatic tail. SPLEEN: No evidence for splenomegaly. No intrasplenic lesions seen. ADRENALS: No adrenal nodules identified. No evidence for thickening. KIDNEYS: No evidence for renal mass. 5.5 mm calculus lower pole left kidney without obstructive garcia e. 5 mm nonobstructing calculus lower pole right kidney. No evidence for hydronephrosis. BOWEL: Appendix has a normal appearance. No evidence of bowel obstruction. No inflammatory process. Lymph nodes: No evidence for adenopathy greater than 1 cm. Abdominal aorta: Atheromatous changes seen. No evidence for aneurysm. Genital organs: IUD is noted to be in place. Other: No significant abnormality. IMPRESSION: 1. Nonobstructing bilateral renal calculi.
[2022-11-12 10:08] LABS: ALT 29 U/L (4-34); AST 32 U/L (14-36); African American GFR (CKD) >90 (>60 ml/min/1.73 sqM); Albumin 4.5 g/dL (3.5-5.0); Alkaline Phosphatase 90 U/L (38-126); Anion Gap 10 mmol/L; Blood Urea Nitrogen 18 mg/dL (7-17); Calcium 9.6 mg/dL (8.4-10.2); Carbon Dioxide 24 mmol/L (22-30); Chloride 105 mmol/L (98-107); Glucose 99 mg/dL (74-99); Non-African American GFR(CKD) >90 (>60 ml/min/1.73 sqM); Potassium 4.3 mmol/L (3.5-5.1); Sodium 139 mmol/L (137-145); Total Bilirubin 0.9 mg/dL (0.2-1.3); Total Protein 7.8 g/dL (6.3-8.2)
[2022-11-12 10:46] VITALS: BP 134/78; PULSE 78; RESP 18
== END 2022-11-12 10:46 | disposition home or self-care (01) ==
LOC: EC 08:53
DX: N20.0 Calculus of kidney (principal); J45.909 Unspecified asthma, uncomplicated; F12.90 Cannabis use, unspecified, uncomplicated; Z91.041 Radiographic dye allergy status; Z91.013 Allergy to seafood; Z88.8 Allergy status to other drugs, medicaments and biological substances
CPT/HCPCS: 36415; 74176; 80053; 81001; 81025; 85025; 99284

== ENCOUNTER 2022-11-15 10:39 | Emergency (ER) | payer OTHER ==
[2022-11-15 10:45] VITALS: TEMP 97.8
[2022-11-15 11:41] LABS: Appearance,Urine Clear (Clear); Basophils % (A) 0 %; Bilirubin,Urine Negative (Negative); Blood,Urine Negative (Negative); Color,Urine Colorless; Eosinophils # (A) 0.1 k/uL (0-0.7); Eosinophils % (A) 2 %; Glucose,Urine (UA) Negative (Negative); HCT 41.4 % (34.0-46.0); HGB 13.8 gm/dL (11.4-16.0); Ketones,Urine Negative (Negative); Leukocyte Esterase,Urine Negative (Negative); Lymphocytes # (A) 1.3 k/uL (1.0-4.8); Lymphocytes % (A) 22 %; MCH 30.3 pg (25.0-35.0); MCHC 33.4 g/dL (31.0-37.0); MCV 90.6 fL (80.0-100.0); Mean Platelet Volume 8.2; Monocytes # (A) 0.2 k/uL (0-1.0); Monocytes % (A) 3 %; Neutrophils # (A) 4.2 k/uL (1.3-7.7); Neutrophils % (A) 71 %; Nitrite,Urine Negative (Negative); Platelet Count 258 k/uL (150-450); Protein,Urine Negative (Negative); RBC 4.57 m/uL (3.80-5.40); RDW 12.8 % (11.5-15.5); Specific Gravity,Urine 1.002 (1.001-1.035); Urobilinogen,Urine <2.0 mg/dL (<2.0); WBC 5.9 k/uL (3.8-10.6)
[2022-11-15 11:53] LABS: ALT 26 U/L (4-34); AST 27 U/L (14-36); African American GFR (CKD) >90 (>60 ml/min/1.73 sqM); Albumin 4.3 g/dL (3.5-5.0); Alkaline Phosphatase 84 U/L (38-126); Amylase 43 U/L (30-110); Anion Gap 7 mmol/L; Blood Urea Nitrogen 13 mg/dL (7-17); Calcium 9.3 mg/dL (8.4-10.2); Carbon Dioxide 25 mmol/L (22-30); Chloride 108 mmol/L (98-107); Glucose 91 mg/dL (74-99); Lipase 88 U/L (23-300); Non-African American GFR(CKD) >90 (>60 ml/min/1.73 sqM); Potassium 4.1 mmol/L (3.5-5.1); Sodium 140 mmol/L (137-145); Total Bilirubin 0.9 mg/dL (0.2-1.3); Total Protein 7.3 g/dL (6.3-8.2)
--- NOTE | 2022-11-15 11:56 | ED ---
Abdominal Pain HPI - General Chief Complaint: Abdominal Pain Stated Complaint: Abd Pain Time Seen by Provider: 11/15/22 11:05 Source: patient Mode of arrival: ambulatory Limitations: no limitations - History of Present Illness Initial Comments: 46-year-old female with past medical history significant for endometriosis, short cervix, and history of multiple renal stones currently being seen by Ai presents to the ED with a chief complaint of abdominal pain. Patient previously seen here on 11/12/22 with complaints of abdominal pain with symptoms feeling as if she was having a stone. At that time CT of the abdomen/pelvis without contrast was negative for acute process but did show bilateral nonobstructing stones. Lab work at that time unremarkable. Patient states for the past 6 days, has been having lower abdominal pain radiating to the back. States that she stuck her hand in her vagina and felt as if her IUD is malpositioned. States that due to history of short cervix is usually able to feel the tip of her IUD however now notes that she is unable to feel the tip of the IUD or its strings. Denies vaginal bleeding or vaginal discharge. Denies changes in urination. Associated nausea, vomiting, diarrhea. She has taken holistic medications prior to arrival which she she reports provided no relief. No other complaints. - Related Data Home Medications Medication Instructions Recorded Confirmed Phenazopyridine HCl 95 mg PO TID PRN 11/12/22 11/12/22 Allergies Allergy/AdvReac Type Severity Reaction Status Date / Time iodine Allergy Rash/Hives Verified 11/12/22 10:21 shellfish derived [Shellfish] Allergy Anaphylaxis Verified 11/12/22 10:21 prednisone AdvReac Severe Increased Verified 11/12/22 10:21 Blood Pressure Review of Systems ROS Statement: Those systems with pertinent positive or pertinent negative responses have been documented in the HPI. ROS Other: All systems not noted in ROS Statement are negative. Past Medical History Past Medical History: Asthma, Chest Pain / Angina, Liver Disease Additional Past Medical History / Comment(s): polycystic kidneys, lupus, heart murmur, pleurisy, elevated liver enzymes History of Any Multi-Drug Resistant Organisms: None Reported Past Surgical History: Appendectomy, Cholecystectomy, Tonsillectomy Additional Past Surgical History / Comment(s): wisdom teeth removal, colonoscopy and egd, IUD, kidney surgery Past Anesthesia/Blood Transfusion Reactions: Postoperative Nausea & Vomiting (PONV) Past Psychological History: No Psychological Hx Reported Smoking Status: Never smoker Past Alcohol Use History: None Reported Past Drug Use History: Marijuana - Past Family History Mother Family Medical History: Hypertension Additional Family Medical History / Comment(s): hypoglycemic General Exam Limitations: no limitations General appearance: alert ENT exam: Present: mucous membranes moist Respiratory exam: Present: normal lung sounds bilaterally Cardiovascular Exam: Present: regular rate, normal rhythm GI/Abdominal exam: Present: soft, tenderness (Diffuse abdominal tenderness to palpation worse in the suprapubic region. Left CVA tenderness to percussion.) Neurological exam: Present: alert, oriented X3 Skin exam: Present: warm, dry Course Vital Signs 11/15/22 11/15/22 11/15/22 10:42 13:05 13:59 Temperature 97.8 F Pulse Rate 94 68 Respiratory 18 18 16 Rate Blood Pressure 141/87 155/79 O2 Sat by Pulse 98 100 Oximetry Medical Decision Making - Medical Decision Making Was pt. sent in by a medical professional or institution (, PA, DRILL PRESS SET UP OPERATOR RADIAL, urgent care, hospital, or correction...) When possible be specific @ -No Did you speak to anyone other than the patient for history (EMS, parent, family, police, friend...)? What history was obtained from this source @ -No Did you review nursing and triage notes (agree or disagree)? Why? @ -I reviewed and agree with nursing and triage notes Were old charts reviewed (outside hosp., previous admission, EMS record, old EKG, old radiological studies, urgent care reports/EKG's, correction records)? Report findings @ -Review of prior visit here on 11/12/[address] with findings of nonobstructive stones bilaterally, no acute findings. Laboratory work at this time was unremarkable. Differential Diagnosis (chest pain, altered mental status, abdominal pain women, abdominal pain men, vaginal bleeding, weakness, fever, dyspnea, syncope, headache, dizziness, GI bleed, back pain, seizure, CVA, palpatations, mental health, musculoskeletal)? @ -Differential Abdominal Pain Women: Appendicitis, Cholecystitis, diverticulosis, ischemic bowel, pancreatitis, hepatitis, UTI, gastroenteritis, AAA, incarcerated hernia, bowel obstruction, constipation, inflammatory bowel, hepatitis, peptic ulcer disease, splenic infarction, perforated viscus, vulvitis, ovarian torsion, PID, kidney stone, placenta abruption, this is not meant to be an all-inclusive list EKG interpreted by me (3pts min.). @ -None X-rays interpreted by me (1pt min.). @ -None done CT interpreted by me (1pt min.). @ -CT abdomen and pelvis without contrast again showed nonobstructing stones in bilateral kidneys with no hydronephrosis. Additional finding of wall thickening of the terminal ileum. U/S interpreted by me (1pt. min.). @ -Transvaginal ultrasound shows IUD in proper place. No acute findings. What testing was considered but not performed or refused? (CT, X-rays, U/S, labs)? Why? @ -None What meds were considered but not given or refused? Why? @ -She was offered pain medications and antiemetics however at this time declined. States that she would rather take her homeopathic medications. Did you discuss the management of the patient with other professionals (ladan nelson i.e. , PA, DRILL PRESS SET UP OPERATOR RADIAL, lab, RT, psych nurse, social welfare administrator, android programmer, teacher, asset protection officer, complex case manager)? Give summary @ -No Was smoking cessation discussed for >3mins.? @ -No Was critical care preformed (if so, how long)? @ -No Were there social determinants of health that impacted care today? How? (Homelessness, low income, unemployed, alcoholism, drug addiction, transportati on, low edu. Level, literacy, decrease access to med. care, fdc, rehab)? @ -No Was there de-escalation of care discussed even if they declined (Discuss DNR or withdrawal of care, Hospice)? DNR status @ -No What co-morbidities impacted this encounter? (DM, HTN, Smoking, COPD, CAD, Cancer, CVA, ARF, Chemo, Hep., AIDS, mental health diagnosis, sleep apnea, morbid obesity)? @ -None Was patient admitted / discharged? Hospital course, mention meds given and route, prescriptions, significant lab abnormalities, going to OR and other pertinent info. @ -Discharge. Laboratory studies in the ED unremarkable including CBC. Ultrasound unremarkable. CT did demonstrate findings consistent with terminal ileitis. At this time likely inflammatory in nature as patient does not have an elevated white count or is febrile. Patient discharged home with follow-up to gastroenterology. Discussed return precautions with patient who verbalizes agreement. Undiagnosed new problem with uncertain prognosis? @ -No Drug Therapy requiring intensive monitoring for toxicity (Heparin, Nitro, Insulin, Cardizem)? @ -No Were any procedures done? @ -No Diagnosis/symptom? @ -Terminal ileitis Acute, or Chronic, or Acute on Chronic? @ -Acute Uncomplicated (without systemic symptoms) or Complicated (systemic symptoms)? @ -Uncomplicated Side effects of treatment? @ -No Exacerbation, Progression, or Severe Exacerbation? @ -No Poses a threat to life or bodily function? How? (Chest pain, [place], [place], pneumonia, PE, COPD, DKA, ARF, appy, cholecystitis, CVA, Diverticulitis, Homicidal, Suicidal, threat to staff... and all critical care pts) @ -No - Lab Data Result diagrams: 11/15/22 11:28 11/15/22 11:28 Lab Results 11/15/22 11/15/22 11/15/22 Range/Units 11:28 11:28 11:28 WBC 5.9 (3.8-10.6) k/uL RBC 4.57 (3.80-5.40) m/uL Hgb 13.8 (11.4-16.0) gm/dL Hct 41.4 (34.0-46.0) % MCV 90.6 (80.0-100.0) fL MCH 30.3 (25.0-35.0) pg MCHC 33.4 (31.0-37.0) g/dL RDW 12.8 (11.5-15.5) % Plt Count 258 (150-450) k/uL MPV 8.2 Neutrophils % 71 % Lymphocytes % 22 % Monocytes % 3 % Eosinophils % 2 % Basophils % 0 % Neutrophils # 4.2 (1.3-7.7) k/uL Lymphocytes # 1.3 (1.0-4.8) k/uL Monocytes # 0.2 (0-1.0) k/uL Eosinophils # 0.1 (0-0.7) k/uL Basophils # 0.0 (0-0.2) k/uL Sodium (137-145) mmol/L Potassium (3.5-5.1) mmol/L Chloride (98-107) mmol/L Carbon Dioxide (22-30) mmol/L Anion Gap mmol/L BUN (7-17) mg/dL Creatinine (0.52-1.04) mg/dL Est GFR (CKD-EPI)AfAm (>60 ml/min/1.73 sqM) Est GFR (CKD-EPI)NonAf (>60 ml/min/1.73 sqM) Glucose (74-99) mg/dL Calcium (8.4-10.2) mg/dL Total Bilirubin (0.2-1.3) mg/dL AST (14-36) U/L ALT (4-34) U/L Alkaline Phosphatase (38-126) U/L Total Protein (6.3-8.2) g/dL Albumin (3.5-5.0) g/dL Amylase (30-110) U/L Lipase (23-300) U/L Urine Color Colorless Urine Appearance Clear (Clear) Urine pH 7.0 (5.0-8.0) Ur Specific Walker 1.002 (1.001-1.035) Urine Protein Negative (Negative) Urine Glucose (UA) Negative (Negative) Urine Ketones Negative (Negative) Urine Blood Negative (Negative) Urine Nitrite Negative (Negative) Urine Bilirubin Negative (Negative) Urine Urobilinogen <2.0 (<2.0) mg/dL Ur Leukocyte Esterase Negative (Negative) Urine HCG, Qual Not Detected (Not Detectd) 11/15/22 Range/Units 11:28 WBC (3.8-10.6) k/uL RBC (3.80-5.40) m/uL Hgb (11.4-16.0) gm/dL Hct (34.0-46.0) % MCV (80.0-100.0) fL MCH (25.0-35.0) pg MCHC (31.0-37.0) g/dL RDW (11.5-15.5) % Plt Count (150-450) k/uL MPV Neutrophils % % Lymphocytes % % Monocytes % % Eosinophils % % Basophils % % Neutrophils # (1.3-7.7) k/uL Lymphocytes # (1.0-4.8) k/uL Monocytes # (0-1.0) k/uL Eosinophils # (0-0.7) k/uL Basophils # (0-0.2) k/uL Sodium 140 (137-145) mmol/L Potassium 4.1 (3.5-5.1) mmol/L Chloride 108 H (98-107) mmol/L Carbon Dioxide 25 (22-30) mmol/L Anion Gap 7 mmol/L BUN 13 (7-17) mg/dL Creatinine 0.62 (0.52-1.04) mg/dL Est GFR (CKD-EPI)AfAm >90 (>60 ml/min/1.73 sqM) Est GFR (CKD-EPI)NonAf >90 (>60 ml/min/1.73 sqM) Glucose 91 (74-99) mg/dL Calcium 9.3 (8.4-10.2) mg/dL Total Bilirubin 0.9 (0.2-1.3) mg/dL AST 27 (14-36) U/L ALT 26 (4-34) U/L Alkaline Phosphatase 84 (38-126) U/L Total Protein 7.3 (6.3-8.2) g/dL Albumin 4.3 (3.5-5.0) g/dL Amylase 43 (30-110) U/L Lipase 88 (23-300) U/L Urine Color Urine Appearance (Clear) Urine pH (5.0-8.0) Ur Specific [place] (1.001-1.035) Urine Protein (Negative) Urine Glucose (UA) (Negative) Urine Ketones (Negative) Urine Blood (Negative) Urine Nitrite (Negative) Urine Bilirubin (Negative) Urine Urobilinogen (<2.0) mg/dL Ur Leukocyte Esterase (Negative) Urine HCG, Qual (Not Detectd) Disposition Clinical Impression: Terminal ileitis Disposition: HOME SELF-CARE Condition: Good Instructions (If sedation given, give patient instructions): Abdominal Pain (ED) Additional Instructions: Please return to the Emergency Department if symptoms worsen or any other concerns. Is patient prescribed a controlled substance at d/c from ED?: No Referrals: Herman Painting Jr, DO [Primary Care Provider] - 1-2 days Shobha Stacy MD [STAFF PHYSICIAN] - 1-2 days Time of Disposition: 13:47
--- NOTE | 2022-11-15 12:00 | US ---
EXAMINATION TYPE: US transvaginal plus Doppler DATE OF EXAM: 11/15/2022 COMPARISON: CT 11/12/22 CLINICAL INDICATION: Female, 46 years old with history of r/o malpositioned IDU/Perforation; Pt state s pelvic pain, unable to feel IUD strings/ Pt states IUD 13 years old TECHNIQUE: Transvaginal (TV). Transvaginal sonographic images of the pelvis were acquired. Color D oppler and spectral waveform analysis of the ovarian arteries and veins. Date of LMP: 14 months ago EXAM MEASUREMENTS: Uterus: 6.8 x 3.1 x 3.8 cm Endometrial Stripe: 0.4 cm Right Ovary: 1.8 x 1.4 x 1.2 cm Left Ovary: 1.6 x 1.1 x 1.4 cm 1. Uterus: Anteverted. Within normal limits, IUD in correct position 2. Endometrium: wnl 3. Right Ovary: wnl 4. Left Ovary: wnl Spectral, color and waveform doppler imaging shows good arterial and venous flow within the ovaries ; there is no evidence for ovarian torsion. 5. Bilateral Adnexa: wnl 6. Posterior cul-de-sac: wnl Rehab Care Assistant notes:No abnormality visualized to account for pt's symptoms IMPRESSION: 1. IUD appropriately positioned. 2. Normal appearance to the ovaries. No sonographic evidence for ovarian torsion. 3. No pelvic free fluid.
--- NOTE | 2022-11-15 12:58 | CT ---
EXAMINATION TYPE: CT abdomen pelvis wo con DATE OF EXAM: 11/15/2022 COMPARISON: 11/12/2022 HISTORY: 46-year-old female ABDOMINAL/ PELVIC PAIN CT DLP: 956 mGycm. Automated exposure control for dose reduction was used. TECHNIQUE: Contiguous axial scanning of the abdomen and pelvis without IV contrast. Coronal and sagit ekaterina reconstructions performed. FINDINGS: LUNG BASES: No significant abnormality is appreciated. LIVER/GB: No significant abnormality is appreciated. PANCREAS: No significant abnormality is seen. SPLEEN: No significant abnormality is seen. ADRENALS: No significant abnormality is seen. KIDNEYS: 5 mm nonobstructive left renal stone. 4 mm nonobstructive right renal stone. Bilateral extra renal pelves. No hydronephrosis. BOWEL: No dilated small bowel, free fluid, or free air. While the appendix is not visualized, no seco ndary findings of acute appendicitis in the right lower quadrant. There is mild stool predominantly i n the right side of the colon. No pericolic inflammatory change. There appears to be some mural thickening of the terminal ileum for a span of approximately 7 cm, axi al image 63, located within the right side of the pelvis. No significant surrounding edema or fat str anding. LYMPH NODES: No greater than 1cm abdominal or pelvic lymph nodes are appreciated. PELVIS: Bladder partially distended. Uterus anteverted. IUD appears appropriately situated within the uterine cavity. Ovaries not well delineated from adjacent bowel loops. Punctate pelvic phlebolith. N o abnormal fluid collection in the pelvis or pelvic lymphadenopathy. OSSEOUS STRUCTURES: No significant abnormality is seen. OTHER: Moderate degenerative disc disease visualized lower thoracic spine. Mild to moderate degenerat chari disc disease L5-S1. IMPRESSION: 1. A nonobstructive stone within either kidney measuring up to 5 mm. No hydronephrosis. 2. There appears to be wall thickening for a 7 cm span of the terminal ileum. Correlate for possible infectious or inflammatory terminal ileitis.
[2022-11-15 13:11] VITALS: BP 155/79; PULSE 68
[2022-11-15 14:00] VITALS: RESP 16
== END 2022-11-15 14:00 | disposition home or self-care (01) ==
LOC: EC 10:39
DX: K50.00 Crohn's disease of small intestine without complications (principal); J45.909 Unspecified asthma, uncomplicated; F12.90 Cannabis use, unspecified, uncomplicated; Z90.49 Acquired absence of other specified parts of digestive tract; Z91.013 Allergy to seafood; Z88.8 Allergy status to other drugs, medicaments and biological substances; Z91.09 Other allergy status, other than to drugs and biological substances
CPT/HCPCS: 36415; 74176; 76830; 80053; 81003; 81025; 82150; 83690; 85025; 93975; 99284

== ENCOUNTER 2023-03-30 12:05 | Emergency (ER) | payer OTHER ==
[2023-03-30 12:35] VITALS: BP 172/81; PULSE 72; RESP 18; TEMP 98.1
--- NOTE | 2023-03-30 12:36 | ED ---
General Adult HPI - General Stated complaint: found worm in toilet not sure if it came from pt Time Seen by Provider: 03/30/23 12:31 Source: patient, RN notes reviewed Mode of arrival: ambulatory Limitations: no limitations - History of Present Illness Initial comments: 47-year-old female presents emergency Department chief complaint of possible worms. Patient states that she is going to the bathroom warmth in her toilet. She believes is from her but could be from her. Patient states she does have GI issues. Patient denies any fevers chills anemia issues or any other associated symptoms. - Related Data Home Medications Medication Instructions Recorded Confirmed Phenazopyridine HCl 95 mg PO TID PRN 11/12/22 11/12/22 Previous Rx's Medication Instructions Recorded Albendazole [Albenza] 200 mg PO BID #14 tab 03/30/23 Ivermectin 15 mg PO ONCE #5 tablet 03/30/23 Mebendazole [Emverm chew] 100 mg PO BID #6 tab 03/30/23 Allergies Allergy/AdvReac Type Severity Reaction Status Date / Time iodine Allergy Rash/Hives Verified 03/30/23 12:28 shellfish derived [Shellfish] Allergy Anaphylaxis Verified 03/30/23 12:28 prednisone AdvReac Severe Increased Verified 03/30/23 12:28 Blood Pressure Review of Systems ROS Statement: Those systems with pertinent positive or pertinent negative responses have been documented in the HPI. ROS Other: All systems not noted in ROS Statement are negative. Past Medical History Past Medical History: Asthma, Chest Pain / Angina, Liver Disease Additional Past Medical History / Comment(s): polycystic kidneys, lupus, heart murmur, pleurisy, elevated liver enzymes, chrohns, History of Any Multi-Drug Resistant Organisms: None Reported Past Surgical History: Appendectomy, Cholecystectomy, Tonsillectomy Additional Past Surgical History / Comment(s): wisdom teeth removal, colonoscopy and egd, IUD, kidney surgery Past Anesthesia/Blood Transfusion Reactions: Postoperative Nausea & Vomiting (PONV) Past Psychological History: No Psychological Hx Reported Smoking Status: Never smoker Past Alcohol Use History: None Reported Past Drug Use History: Marijuana - Past Family History Mother Family Medical History: Hypertension Additional Family Medical History / Comment(s): hypoglycemic General Exam Limitations: no limitations General appearance: alert, in no apparent distress Head exam: Present: atraumatic, normocephalic, normal inspection Respiratory exam: Present: normal lung sounds bilaterally. Absent: respiratory distress, wheezes, rales, rhonchi, stridor Cardiovascular Exam: Present: regular rate, normal rhythm, normal heart sounds. Absent: systolic murmur, diastolic murmur, rubs, gallop, clicks GI/Abdominal exam: Present: soft, normal bowel sounds. Absent: distended, tenderness, guarding, rebound, rigid Course Vital Signs 03/30/23 12:19 Temperature 98.1 F Pulse Rate 72 Respiratory 18 Rate Blood Pressure 172/81 O2 Sat by Pulse 99 Oximetry Medical Decision Making - Medical Decision Making Was pt. sent in by a medical professional or institution (, PA, ENVIRONMENTAL RESEARCH SCIENTIST, urgent care, hospital, or custodial...) When possible be specific @ -No Did you speak to anyone other than the patient for history (EMS, parent, family, police, friend...)? What history was obtained from this source @ -No Did you review nursing and triage notes (agree or disagree)? Why? @ -I reviewed and agree with nursing and triage notes Were old charts reviewed (outside hosp., previous admission, EMS record, old EKG, old radiological studies, urgent care reports/EKG's, custodial records)? Report findings @ -No old charts were reviewed Differential Diagnosis (chest pain, altered mental status, abdominal pain women, abdominal pain men, vaginal bleeding, weakness, fever, dyspnea, syncope, headache, dizziness, GI bleed, back pain, seizure, CVA, palpatations, mental health, musculoskeletal)? @ -Differential Abdominal Pain Women: Appendicitis, Cholecystitis, diverticulosis, ischemic bowel, pancreatitis, hepatitis, UTI, gastroenteritis, AAA, incarcerated hernia, bowel obstruction, constipation, inflammatory bowel, hepatitis, peptic ulcer disease, splenic infarction, perforated viscus, vulvitis, ovarian torsion, PID, kidney stone, placenta abruption, this is not meant to be an all-inclusive liste EKG interpreted by me (3pts min.). @ -None X-rays interpreted by me (1pt min.). @ -None done CT interpreted by me (1pt min.). @ -None done U/S interpreted by me (1pt. min.). @ -None done What testing was considered but not performed or refused? (CT, X-rays, U/S, labs)? Why? @ -None What meds were considered but not given or refused? Why? @ -None Did you discuss the management of the patient with other professionals (professionals i.e. , PA, ENVIRONMENTAL RESEARCH SCIENTIST, lab, RT, psych nurse, social media editor, pressroom supervisor, teacher, dog license officer supervisor, counter caser)? Give summary @ -No Was smoking cessation discussed for >3mins.? @ -No Was critical care preformed (if so, how long)? @ -No Were there social determinants of health that impacted care today? How? (Homelessness, low income, unemployed, alcoholism, drug addiction, transportation, low edu. Level, literacy, decrease access to med. care, [facility], rehab)? @ -No Was there de-escalation of care discussed even if they declined (Discuss DNR or withdrawal of care, Hospice)? DNR status @ -No What co-morbidities impacted this encounter? (DM, HTN, Smoking, COPD, CAD, Cancer, CVA, ARF, Chemo, Hep., AIDS, mental health diagnosis, sleep apnea, morbid obesity)? @ -None Was patient admitted / discharged? Hospital course, mention meds given and route, prescriptions, significant lab abnormalities, going to OR and other pertinent info. @ -Discharge after long discussion with the patient we decided on empiric t reatment for patient and advise to be seen also for treatment. Secondary to insurance issues abembazole and mebabazole are not covered and was recommended to be treated with ivermectin as this is felt to be roundworm other than tapeworm. Undiagnosed new problem with uncertain prognosis? @ -No Drug Therapy requiring intensive monitoring for toxicity (Heparin, Nitro, Insulin, Cardizem)? @ -No Were any procedures done? @ -No Diagnosis/symptom? @ -Roundworm infection Acute, or Chronic, or Acute on Chronic? @ -Acute Uncomplicated (without systemic symptoms) or Complicated (systemic symptoms)? @ -Uncomplicated Side effects of treatment? @ -No Exacerbation, Progression, or Severe Exacerbation? @ -No Poses a threat to life or bodily function? How? (Chest pain, [place], [place], pneumonia, PE, COPD, DKA, ARF, appy, cholecystitis, CVA, Diverticulitis, Homicidal, Suicidal, threat to staff... and all critical care pts) @ -No Disposition Clinical Impression: Roundworm infection Disposition: HOME SELF-CARE Condition: Stable Additional Instructions: Please return to the Emergency Department if symptoms worsen or any other concerns. Prescriptions: Albendazole [Albenza] 200 mg PO BID #14 tab Mebendazole [Emverm chew] 100 mg PO BID #6 tab Ivermectin 15 mg PO ONCE #5 tablet Is patient prescribed a controlled substance at d/c from ED?: No Referrals: Herman Painting Jr, DO [Primary Care Provider] - 1-2 days Time of Disposition: 12:36
== END 2023-03-30 13:08 | disposition home or self-care (01) ==
LOC: EC 12:05
DX: B77.9 Ascariasis, unspecified (principal); J45.909 Unspecified asthma, uncomplicated; F12.90 Cannabis use, unspecified, uncomplicated; Z91.013 Allergy to seafood; Z88.8 Allergy status to other drugs, medicaments and biological substances; Z91.041 Radiographic dye allergy status
CPT/HCPCS: 99282

== ENCOUNTER 2023-05-04 05:12 | Emergency (ER) | payer OTHER ==
[2023-05-04 05:31] VITALS: BP 165/106; PULSE 61; RESP 18; TEMP 97.9
--- NOTE | 2023-05-04 05:57 | ED ---
General Adult HPI - General Chief complaint: ENT Stated complaint: Sinus Infection, sores in nose Time Seen by Provider: 05/04/23 05:42 Source: patient, RN notes reviewed, old records reviewed Mode of arrival: ambulatory Limitations: no limitations - History of Present Illness Initial comments: 87-year-old female presents for evaluation of bleeding sores in both nostrils. This has been present for the past one month. She's been trying home remedies without relief. - Related Data Home Medications Medication Instructions Recorded Confirmed Phenazopyridine HCl 95 mg PO TID PRN 11/12/22 11/12/22 Previous Rx's Medication Instructions Recorded Albendazole [Albenza] 200 mg PO BID #14 tab 03/30/23 Ivermectin 15 mg PO ONCE #5 tablet 03/30/23 Mebendazole [Emverm chew] 100 mg PO BID #6 tab 03/30/23 Mupirocin 2% Oint [Bactroban 2% 1 applic TOPICAL TID #22 gm 05/04/23 Oint] Allergies Allergy/AdvReac Type Severity Reaction Status Date / Time iodine Allergy Rash/Hives Verified 05/04/23 05:21 shellfish derived [Shellfish] Allergy Anaphylaxis Verified 05/04/23 05:21 prednisone AdvReac Severe Increased Verified 05/04/23 05:21 Blood Pressure Review of Systems ROS Statement: Those systems with pertinent positive or pertinent negative responses have been documented in the HPI. ROS Other: All systems not noted in ROS Statement are negative. Past Medical History Past Medical History: Asthma, Chest Pain / Angina, Liver Disease Additional Past Medical History / Comment(s): polycystic kidneys, lupus, heart murmur, pleurisy, elevated liver enzymes, chrohns, History of Any Multi-Drug Resistant Organisms: None Reported Past Surgical History: Appendectomy, Cholecystectomy, Tonsillectomy Additional Past Surgical History / Comment(s): wisdom teeth removal, colonoscopy and egd, IUD, kidney surgery Past Anesthesia/Blood Transfusion Reactions: Postoperative Nausea & Vomiting (PONV) Past Psychological History: No Psychological Hx Reported Smoking Status: Never smoker Past Alcohol Use History: None Reported Past Drug Use History: Marijuana - Past Family History Mother Family Medical History: Hypertension Additional Family Medical History / Comment(s): hypoglycemic General Exam Limitations: no limitations General appearance: alert, in no apparent distress Head exam: Present: atraumatic, normocephalic Eye exam: Present: normal appearance, PERRL ENT exam: Present: other (Ulcerative lesions in bilateral nostrils, no active bleeding) Cardiovascular Exam: Present: regular rate, normal rhythm GI/Abdominal exam: Present: soft. Absent: distended, tenderness Neurological exam: Present: alert, oriented X3 Psychiatric exam: Present: normal affect, normal mood Skin exam: Present: warm, dry, intact Course Vital Signs 05/04/23 05:17 Temperature 97.9 F Pulse Rate 61 Respiratory 18 Rate Blood Pressure 165/106 O2 Sat by Pulse 100 Oximetry Medical Decision Making - Medical Decision Making Was pt. sent in by a medical professional or institution (, WAYNE, INSULATION CUTTER, urgent care, hospital, or care home...) When possible be specific @ -No Did you speak to anyone other than the patient for history (EMS, parent, family, police, friend...)? What history was obtained from this source @ -No Did you review nursing and triage notes (agree or disagree)? Why? @ -I reviewed and agree with nursing and triage notes Were old charts reviewed (outside hosp., previous admission, EMS record, old EKG, old radiological studies, urgent care reports/EKG's, care home records)? Report findings @ -No old charts were reviewed Differential Diagnosis (chest pain, altered mental status, abdominal pain women, abdominal pain men, vaginal bleeding, weakness, fever, dyspnea, syncope, headache, dizziness, GI bleed, back pain, seizure, CVA, palpatations, mental health, musculoskeletal)? @ -Mucosal infection, sinusitis EKG interpreted by me (3pts min.). @ -As above X-rays interpreted by me (1pt min.). @ -None done CT interpreted by me (1pt min.). @ -None done U/S interpreted by me (1pt. min.). @ -None done What testing was considered but not performed or refused? (CT, X-rays, U/S, labs)? Why? @ -None What meds were considered but not given or refused? Why? @ -None Did you discuss the management of the patient with other professionals (professionals i.e. WAYNE Sheppard, INSULATION CUTTER, lab, RT, psych nurse, social service technician, breakfast supervisor, teacher, custom protection officer, case management social worker)? Give summary @ -No Was smoking cessation discussed for >3mins.? @ -No Was critical care preformed (if so, how long)? @ -No Were there social determinants of health that impacted care today? How? (Homelessness, low income, unemployed, alcoholism, drug addiction, transportation, low edu. Level, literacy, decrease access to med. care, half-way, rehab)? @ -No Was there de-escalation of care discussed even if they declined (Discuss DNR or withdrawal of care, Hospice)? DNR status @ -No What co-morbidities impacted this encounter? (DM, HTN, Smoking, COPD, CAD, Cancer, CVA, ARF, Chemo, Hep., AIDS, mental health diagnosis, sleep apnea, morbid obesity)? @ -None Was patient admitted / discharged? Hospital course, mention meds given and route, prescriptions, significant lab abnormalities, going to OR and other pertinent info. @ -[This patient has had one month of bilateral irritation and ulceration. Will prescribe a Fung but I do feel this patient will benefit from ENT evaluation for better visualization. She will also follow with her primary care provider. Undiagnosed new problem with uncertain prognosis? @ -No Drug Therapy requiring intensive monitoring for toxicity (Heparin, Nitro, Insulin, Cardizem)? @ -No Were any procedures done? @ -No Diagnosis/symptom? @ -Intranasal irritation Acute, or Chronic, or Acute on Chronic? @Acute Uncomplicated (without systemic symptoms) or Complicated (systemic symptoms)? @ -default Side effects of treatment? @ -No Exacerbation, Progression, or Severe Exacerbation? @ -No Poses a threat to life or bodily function? How? (Chest pain, [place], [place], pneumonia, PE, COPD, DKA, ARF, appy, cholecystitis, CVA, Diverticulitis, Homicidal, Suicidal, threat to staff... and all critical care pts) @ -No Disposition Clinical Impression: Nasal septal ulcer Disposition: HOME SELF-CARE Condition: Fair Instructions (If sedation given, give patient instructions): Nosebleed (ED) Prescriptions: Mupirocin 2% Oint [Bactroban 2% Oint] 1 applic TOPICAL TID #22 gm Is patient prescribed a controlled substance at d/c from ED?: No Referrals: Herman Painting Jr, DO [Primary Care Provider] - 1-2 days Drew Farias DO [Doctor of Osteopathic Medicine] - 1-2 days Time of Disposition: 05:56
== END 2023-05-04 06:16 | disposition home or self-care (01) ==
LOC: EC 05:12
DX: J34.0 Abscess, furuncle and carbuncle of nose (principal); J45.909 Unspecified asthma, uncomplicated; F12.90 Cannabis use, unspecified, uncomplicated; Z91.013 Allergy to seafood; Z88.8 Allergy status to other drugs, medicaments and biological substances; Z91.041 Radiographic dye allergy status
CPT/HCPCS: 99283

== ENCOUNTER 2023-05-31 13:29 | Emergency (ER) | payer OTHER ==
--- NOTE | 2023-05-31 14:25 | ED ---
General Adult HPI - General Source: patient, RN notes reviewed Mode of arrival: ambulatory Limitations: no limitations <Silvano Lim - Last Filed: 05/31/23 14:24> - General Source: patient, RN notes reviewed Mode of arrival: ambulatory Limitations: no limitations <Tesha Ha - Last Filed: 05/31/23 22:52> - General Chief complaint: Weakness Stated complaint: Weakness Time Seen by Provider: 05/31/23 14:24 - History of Present Illness Initial comments: 47-year-old female presents emergency department complaint of muscle pain, weakness. Patient states symptoms have been worsening. She states this started after being treated for a nose infection. Patient states she is not on any statins. She does state that she had some kidney issues and states that she had potassium issues that cause similar symptoms. (Silvano Lim) This is a 47-year-old female who presents to the emergency department for concerns of muscle pain. Symptoms started 2-3 days ago. Reports a history of low potassium and kidney failure that have caused similar symptoms in the past. The muscle pain is in the upper and lower extremities. She does not like to take medication and is treating her pain with edibles. She did workout at the gym 5 days ago, and states that she may have also overdone it. (Tesha Ha) - Related Data Home Medications Medication Instructions Recorded Confirmed Phenazopyridine HCl 95 mg PO TID PRN 11/12/22 11/12/22 Previous Rx's Medication Instructions Recorded Albendazole [Albenza] 200 mg PO BID #14 tab 03/30/23 Ivermectin 15 mg PO ONCE #5 tablet 03/30/23 Mebendazole [Emverm chew] 100 mg PO BID #6 tab 03/30/23 Mupirocin 2% Oint [Bactroban 2% 1 applic TOPICAL TID #22 gm 05/04/23 Oint] Allergies Allergy/AdvReac Type Severity Reaction Status Date / Time iodine Allergy Rash/Hives Verified 05/31/23 14:28 shellfish derived [Shellfish] Allergy Anaphylaxis Verified 05/31/23 14:28 prednisone AdvReac Severe Increased Verified 05/31/23 14:28 Blood Pressure Review of Systems ROS Other: All systems not noted in ROS Statement are negative. <Silvano Lim - Last Filed: 05/31/23 14:24> ROS Other: All systems not noted in ROS Statement are negative. <Tesha Ha - Last Filed: 05/31/23 22:52> ROS Statement: Those systems with pertinent positive or pertinent negative responses have been documented in the HPI. Past Medical History Past Medical History: Asthma, Chest Pain / Angina, Liver Disease Additional Past Medical History / Comment(s): polycystic kidneys, lupus, heart murmur, pleurisy, elevated liver enzymes, chrohns, History of Any Multi-Drug Resistant Organisms: None Reported Past Surgical History: Appendectomy, Cholecystectomy, Tonsillectomy Additional Past Surgical History / Comment(s): wisdom teeth removal, colonoscopy and egd, IUD, kidney surgery Past Anesthesia/Blood Transfusion Reactions: Postoperative Nausea & Vomiting (PONV) Past Psychological History: No Psychological Hx Reported Smoking Status: Never smoker Past Alcohol Use History: None Reported Past Drug Use History: Marijuana - Past Family History Mother Family Medical History: Hypertension Additional Family Medical History / Comment(s): hypoglycemic <Silvano Lim - Last Filed: 05/31/23 14:24> General Exam <Silvano Lim - Last Filed: 05/31/23 14:24> Limitations: no limitations General appearance: alert, in no apparent distress Head exam: Present: atraumatic, normocephalic, normal inspection Respiratory exam: Present: normal lung sounds bilaterally. Absent: respiratory distress, wheezes, rales, rhonchi, stridor Cardiovascular Exam: Present: regular rate, normal rhythm, normal heart sounds. Absent: systolic murmur, diastolic murmur, rubs, gallop, clicks Neurological exam: Present: alert, oriented X3, CN II-XII intact Psychiatric exam: Present: normal affect, normal mood Skin exam: Present: warm, dry, intact, normal color. Absent: rash <Tesha Ha - Last Filed: 05/31/23 22:52> - General Exam Comments Initial Comments: Visual Physical Exam Vital signs reviewed General: Well-appearing, nontoxic, no acute distress. Head: Normocephalic, atraumatic Eyes: PERRLA, EOMI ENT: Airway patent Chest: Nonlabored breathing Skin: No visual rash, normal skin tone Neuro: Alert and oriented 3 Musculoskeletal: No gross abnormalities (Silvano Lim) Course Vital Signs 05/31/23 05/31/23 05/31/23 14:27 19:18 21:13 Temperature 98.5 F 97.9 F Pulse Rate 63 61 59 L Respiratory 20 18 18 Rate Blood Pressure 174/84 181/81 161/100 O2 Sat by Pulse 100 100 100 Oximetry Medical Decision Making <Silvano Lim - Last Filed: 05/31/23 14:24> - Lab Data Result diagrams: 05/31/23 14:29 05/31/23 14:29 <Tesha Ha - Last Filed: 05/31/23 22:52> - Medical Decision Making I completed the quick note portion of this chart signed Silvano Lim PA-C (Silvano Lim) This is a 47-year-old female who presents to the emergency department for muscle pain. Was pt. sent in by a medical professional or institution? @ -No Did you speak to anyone other than the patient for history? @ -No Did you review nursing and triage notes? @ -Yes, and I agree, it is accurate with regards to the patient's symptoms. Were old charts reviewed? @ -No Differential Diagnosis? @ -Differential Musculoskeletal: Muscular strain, contusion, ligament sprain, fracture, arthritis, septic arthritis, bursitis, cellulitis, muscle spasm, nerve compression, DVT, arterial occlusion, herpes zoster, electrolyte abnormality, tumor.... This is not meant to be in all inclusive list EKG interpreted by me (3pts min.)? @ -Not obtained X-rays interpreted by me (1pt min.)? @ -Not obtained CT interpreted by me (1pt min.)? @ -Not obtained U/S interpreted by me (1pt. min.)? @ -Not obtained What testing was considered but not performed? (CT, X-rays, U/S, labs)? Why? @ -Cepheid 4-plex testing, however patient declined. What meds were considered but not given? Why? @ -Toradol or other pain medication, however patient declined. Did you discuss the management of the patient with other professionals? @ -No Did you reconcile home meds? @ -No Was smoking cessation discussed for >3mins.? @ -No Was critical care preformed (if so, how long)? @ -No Were there social determinants of health that impacted care today? How? (Homelessness, low income, unemployed, alcoholism, drug addiction, transportation, low edu. Level, literacy, decrease access to med. care, half-way, rehab)? @ -No Was there de-escalation of care discussed even if they declined? (Discuss DNR or withdrawal of care, Hospice)? @ -No What co-morbidities impacted this encounter? (DM, HTN, Smoking, COPD, CAD, Cancer, CVA, Hep., AIDS, mental health diagnosis, sleep apnea, morbid obesity)? @ -None Was patient admitted / discharged? @ -Discharged. Lab work obtained and found to be unremarkable. I recommended cepheid 4-plex testing, as we discussed that Covid and influenza can also lead to body aches. However patient refused. She was given a liter bolus of IV fluids, but otherwise declined any pain medication. Discussed that exercising can also also contribute to the symptoms. Patient discharged home in stable co ndition and advised follow-up with her primary care provider. Undiagnosed new problem with uncertain prognosis? @ -None Drug Therapy requiring intensive monitoring for toxicity (Heparin, Nitro, Insulin, Cardizem)? @ -None Were any procedures done? @ -None Diagnosis/symptom? @ -Myalgias Acute, or Chronic, or Acute on Chronic? @ -Acute Uncomplicated (without systemic symptoms) or Complicated (systemic symptoms)? @ -Uncomplicated Side effects of treatment? @ -None Exacerbation, Progression, or Severe Exacerbation] @ -Not applicable Poses a threat to life or bodily function? @ -No Return precautions reviewed in depth, the patient is instructed to return to the emergency department with any new, worsening, or concerning symptoms. Patient verbalized understanding. This case was discussed in detail with the attending ED physician, Dr. Garcia. Presentation, findings, and treatment plan discussed in detail as well. (Tesha Ha) - Lab Data Lab Results 05/31/23 05/31/23 05/31/23 Range/Units 14:29 14:29 14: WBC 6.6 (3.8-10.6) k/uL RBC 4.49 (3.80-5.40) m/uL Hgb 13.8 (11.4-16.0) gm/dL Hct 40.2 (34.0-46.0) % MCV 89.6 (80.0-100.0) fL MCH 30.7 (25.0-35.0) pg MCHC 34.3 (31.0-37.0) g/dL RDW 12.6 (11.5-15.5) % Plt Count 237 (150-450) k/uL MPV 7.8 Neutrophils % 64 % Lymphocytes % 29 % Monocytes % 3 % Eosinophils % 2 % Basophils % 1 % Neutrophils # 4.2 (1.3-7.7) k/uL Lymphocytes # 1.9 (1.0-4.8) k/uL Monocytes # 0.2 (0-1.0) k/uL Eosinophils # 0.1 (0-0.7) k/uL Basophils # 0.0 (0-0.2) k/uL Sodium 141 (137-145) mmol/L Potassium 4.2 (3.5-5.1) mmol/L Chloride 108 H (98-107) mmol/L Carbon Dioxide 25 (22-30) mmol/L Anion Gap 8 mmol/L BUN 15 (7-17) mg/dL Creatinine 0.64 (0.52-1.04) mg/dL Est GFR (CKD-EPI)AfAm >90 (>60 ml/min/1.73 sqM) Est GFR (CKD-EPI)NonAf >90 (>60 ml/min/1.73 sqM) Glucose 88 (74-99) mg/dL Plasma Lactic Acid Antwon (0.7-2.0) mmol/L Calcium 9.4 (8.4-10.2) mg/dL Magnesium 2.0 (1.6-2.3) mg/dL Total Bilirubin 0.9 (0.2-1.3) mg/dL AST 25 (14-36) U/L ALT 25 (4-34) U/L Alkaline Phosphatase 86 (38-126) U/L Creatine Kinase 139 H (30-135) U/L Troponin I (0.000-0.034) ng/mL Total Protein 7.1 (6.3-8.2) g/dL Albumin 4.1 (3.5-5.0) g/dL Urine Color Colorless Urine Appearance Clear (Clear) Urine pH 7.0 (5.0-8.0) Ur Specific [place] 1.006 (1.001-1.035) Urine Protein Negative (Negative) Urine Glucose (UA) Negative (Negative) Urine Ketones Negative (Negative) Urine Blood Negative (Negative) Urine Nitrite Negative (Negative) Urine Bilirubin Negative (Negative) Urine Urobilinogen <2.0 (<2.0) mg/dL Ur Leukocyte Esterase Small H (Negative) Urine RBC 1 (0-5) /hpf Urine WBC 8 H (0-5) /hpf Urine Bacteria Rare H (None) /hpf 05/31/23 05/31/23 Range/Units 15:50 15:50 WBC (3.8-10.6) k/uL RBC (3.80-5.40) m/uL Hgb (11.4-16.0) gm/dL Hct (34.0-46.0) % MCV (80.0-100.0) fL MCH (25.0-35.0) pg MCHC (31.0-37.0) g/dL RDW (11.5-15.5) % Plt Count (150-450) k/uL MPV Neutrophils % % Lymphocytes % % Monocytes % % Eosinophils % % Basophils % % Neutrophils # (1.3-7.7) k/uL Lymphocytes # (1.0-4.8) k/uL Monocytes # (0-1.0) k/uL Eosinophils # (0-0.7) k/uL Basophils # (0-0.2) k/uL Sodium (137-145) mmol/L Potassium (3.5-5.1) mmol/L Chloride (98-107) mmol/L Carbon Dioxide (22-30) mmol/L Anion Gap mmol/L BUN (7-17) mg/dL Creatinine (0.52-1.04) mg/dL Est GFR (CKD-EPI)AfAm (>60 ml/min/1.73 sqM) Est GFR (CKD-EPI)NonAf (>60 ml/min/1.73 sqM) Glucose (74-99) mg/dL Plasma Lactic Acid [place] 1.1 (0.7-2.0) mmol/L Calcium (8.4-10.2) mg/dL Magnesium (1.6-2.3) mg/dL Total Bilirubin (0.2-1.3) mg/dL AST (14-36) U/L ALT (4-34) U/L Alkaline Phosphatase (38-126) U/L Creatine Kinase (30-135) U/L Troponin I <0.012 (0.000-0.034) ng/mL Total Protein (6.3-8.2) g/dL Albumin (3.5-5.0) g/dL Urine Color Urine Appearance (Clear) Urine pH (5.0-8.0) Ur Specific [place] (1.001-1.035) Urine Protein (Negative) Urine Glucose (UA) (Negative) Urine Ketones (Negative) Urine Blood (Negative) Urine Nitrite (Negative) Urine Bilirubin (Negative) Urine Urobilinogen (<2.0) mg/dL Ur Leukocyte Esterase (Negative) Urine RBC (0-5) /hpf Urine WBC (0-5) /hpf Urine Bacteria (None) /hpf Disposition <Silvano Lim - Last Filed: 05/31/23 14:24> Is patient prescribed a controlled substance at d/c from ED?: No Time of Disposition: 19:40 <Tesha Ha - Last Filed: 05/31/23 22:52> Clinical Impression: Myalgia Disposition: HOME SELF-CARE Instructions (If sedation given, give patient instructions): Musculoskeletal Pain (ED) Additional Instructions: Return to the emergency department with any new, worsening, or concerning symptoms. Follow up with your primary care provider in 1-2 days. Referrals: Dony García MD [Primary Care Provider] - 1-2 days
[2023-05-31 16:03] LABS: Basophils % (A) 1 %; Eosinophils # (A) 0.1 k/uL (0-0.7); Eosinophils % (A) 2 %; HCT 40.2 % (34.0-46.0); HGB 13.8 gm/dL (11.4-16.0); Lymphocytes # (A) 1.9 k/uL (1.0-4.8); Lymphocytes % (A) 29 %; MCH 30.7 pg (25.0-35.0); MCHC 34.3 g/dL (31.0-37.0); MCV 89.6 fL (80.0-100.0); Mean Platelet Volume 7.8; Monocytes # (A) 0.2 k/uL (0-1.0); Monocytes % (A) 3 %; Neutrophils # (A) 4.2 k/uL (1.3-7.7); Neutrophils % (A) 64 %; Platelet Count 237 k/uL (150-450); RBC 4.49 m/uL (3.80-5.40); RDW 12.6 % (11.5-15.5); WBC 6.6 k/uL (3.8-10.6)
[2023-05-31 16:13] LABS: Appearance,Urine Clear (Clear); Bacteria,Urine Rare /hpf; Bilirubin,Urine Negative (Negative); Blood,Urine Negative (Negative); Color,Urine Colorless; Glucose,Urine (UA) Negative (Negative); Ketones,Urine Negative (Negative); Leukocyte Esterase,Urine Small (Negative); Nitrite,Urine Negative (Negative); Protein,Urine Negative (Negative); RBC,Urine 1 /hpf (0-5); Specific Gravity,Urine 1.006 (1.001-1.035); Urobilinogen,Urine <2.0 mg/dL (<2.0); WBC,Urine 8 /hpf (0-5)
[2023-05-31 16:51] LABS: ALT 25 U/L (4-34); AST 25 U/L (14-36); African American GFR (CKD) >90 (>60 ml/min/1.73 sqM); Albumin 4.1 g/dL (3.5-5.0); Alkaline Phosphatase 86 U/L (38-126); Anion Gap 8 mmol/L; Blood Urea Nitrogen 15 mg/dL (7-17); Calcium 9.4 mg/dL (8.4-10.2); Carbon Dioxide 25 mmol/L (22-30); Chloride 108 mmol/L (98-107); Creatine Kinase 139 U/L (30-135); Glucose 88 mg/dL (74-99); Non-African American GFR(CKD) >90 (>60 ml/min/1.73 sqM); Potassium 4.2 mmol/L (3.5-5.1); Sodium 141 mmol/L (137-145); Total Bilirubin 0.9 mg/dL (0.2-1.3); Total Protein 7.1 g/dL (6.3-8.2)
[2023-05-31] MEDS: SODIUM CHLORIDE 0.9% 1,000 ML IV STA (19:58)
[2023-05-31 20:01] VITALS: RESP 18; TEMP 97.9
[2023-05-31 21:19] VITALS: BP 161/100; PULSE 59
== END 2023-05-31 21:17 | disposition home or self-care (01) ==
LOC: EC 13:29
DX: M79.10 Myalgia, unspecified site (principal); J45.909 Unspecified asthma, uncomplicated; R00.1 Bradycardia, unspecified; F12.90 Cannabis use, unspecified, uncomplicated; Z88.8 Allergy status to other drugs, medicaments and biological substances; Z91.041 Radiographic dye allergy status; Z91.013 Allergy to seafood
CPT/HCPCS: 36415; 80053; 81001; 82550; 83605; 83735; 84484; 85025; 93005; 99285

== ENCOUNTER 2023-12-10 14:43 | Emergency (ER) | payer OTHER | END 2023-12-10 16:00 | disposition home or self-care (01) | LOC: EC 14:43 | CPT/HCPCS: 99283 ==

== ENCOUNTER 2024-11-06 16:10 | Emergency (ER) | payer OTHER ==
[2024-11-06 16:15] VITALS: TEMP 98.3
--- NOTE | 2024-11-06 18:14 | ED ---
Dizziness HPI - General Chief Complaint: Dizziness Stated Complaint: Dizziness,Carlos Enrique ear pain Time Seen by Provider: 11/06/24 16:24 Source: patient, RN notes reviewed Mode of arrival: ambulatory Limitations: no limitations - History of Present Illness Initial Comments: This is a 48-year-old female with history including chest pain, liver disease, kidney disease and heart murmur presenting for dizziness/vertigo x 4 days. Patient states sensation of room spinning worsens with head movement, noting associated bilateral ear pressure, left ear pain and nausea/vomiting with diarrhea. Patient also mentions some numbness/tingling in her right face and arm that is intermittent. Patient denies fever, chills, neck stiffness, headache, blurred vision, double vision, hearing changes, hematemesis, hematochezia, melena, lower extremity paresthesia/weakness, ataxia. MD Complaint: dizziness Onset/Timin -: days(s) Timing: awoke with symptoms Description: sense of movement, "room spinning", off-balance, difficulty walking History of Same: No History of Trauma: No Improves With: remaining still Worsens With: movement, position Associated Symptoms: other (Nausea/vomiting, diarrhea, ear pain) - Related Data Home Medications Medication Instructions Recorded Confirmed Phenazopyridine HCl 95 mg PO TID PRN 11/12/22 11/12/22 Previous Rx's Medication Instructions Recorded Albendazole [Albenza] 200 mg PO BID #14 tab 03/30/23 Ivermectin 15 mg PO ONCE #5 tablet 03/30/23 Mebendazole [Emverm chew] 100 mg PO BID #6 tab 03/30/23 Mupirocin 2% Oint [Bactroban 2% 1 applic TOPICAL TID #22 gm 05/04/23 Oint] Amoxic-Pot Clav 875-125Mg 1 tab PO Q12HR #20 tab 11/06/24 [Augmentin 875-125] Desloratadine/Pseudoephedrine 1 each PO Q12H #20 tab 11/06/24 [Clarinex-D 12 Hr 2.5-120 mg Tb] Meclizine [Antivert] 25 mg PO Q8H PRN #15 tab 11/06/24 Ondansetron [Zofran] 4 mg PO Q8HR PRN #15 tab 07/07/25 Allergies Allergy/AdvReac Type Severity Reaction Status Date / Time iodine Allergy Rash/Hives Verified 05/31/23 14:28 shellfish derived [Shellfish] Allergy Anaphylaxis Verified 05/31/23 14:28 prednisone AdvReac Severe Increased Verified 05/31/23 14:28 Blood Pressure Review of Systems ROS Statement: Those systems with pertinent positive or pertinent negative responses have been documented in the HPI. ROS Other: All systems not noted in ROS Statement are negative. Past Medical History Past Medical History: Asthma, Chest Pain / Angina, Liver Disease, Renal Disease Additional Past Medical History / Comment(s): polycystic kidneys, lupus, heart murmur, pleurisy, elevated liver enzymes, chrohns, History of Any Multi-Drug Resistant Organisms: None Reported Past Surgical History: Appendectomy, Cholecystectomy, Tonsillectomy Additional Past Surgical History / Comment(s): wisdom teeth removal, colonoscopy and egd, IUD, kidney surgery Past Anesthesia/Blood Transfusion Reactions: Postoperative Nausea & Vomiting (PONV) Past Psychological History: No Psychological Hx Reported Smoking Status: Never smoker Past Alcohol Use History: None Reported Past Drug Use History: Marijuana - Past Family History Mother Family Medical History: Hypertension Additional Family Medical History / Comment(s): hypoglycemic General Exam Limitations: no limitations General appearance: alert, in no apparent distress Head exam: Present: atraumatic, normocephalic, normal inspection, other (Positive left maxillary sinus TTP) Eye exam: Present: normal appearance, PERRL, EOMI, other (All HINTS exams negativeno nystagmus/strabismus. Positive left-sided Lorna-Hallpike maneuver with patient noting extreme vertigo sensation. Negative nystagmus or vertigo when turned right). Absent: scleral icterus, conjunctival injection, nystagmus, periorbital swelling Pupils: Present: normal accommodation ENT exam: Present: mucous membranes moist, normal external ear exam. Absent: TM's normal bilaterally (Positive bilateral TM opacity with air-fluid level and without bulging) Neck exam: Present: normal inspection. Absent: tenderness, meningismus, lymphadenopathy Respiratory exam: Present: normal lung sounds bilaterally. Absent: respiratory distress, wheezes, rales, rhonchi, stridor, accessory muscle use, decreased breath sounds, prolonged expiratory Cardiovascular Exam: Present: regular rate, normal rhythm, normal heart sounds. Absent: systolic murmur, diastolic murmur, rubs, gallop, clicks GI/Abdominal exam: Present: soft, normal bowel sounds. Absent: distended, tenderness, guarding, rebound, rigid Extremities exam: Present: normal inspection, full ROM, normal capillary refill. Absent: tenderness, pedal edema, joint swelling, calf tenderness Back exam: Present: normal inspection Neurological exam: Present: alert, oriented X3, CN II-XII intact (All cranial nerves including sensation intact bilaterally), other ([place] stroke negative. Cerebellar testing including [id number], AJ and [id number] negative) Psychiatric exam: Present: normal affect, normal mood Skin exam: Present: warm, dry, intact, normal color. Absent: rash Course Vital Signs 11/06/24 11/06/24 11/06/24 16:11 19:39 20:22 Temperature 98.3 F Pulse Rate 74 72 60 Respiratory 16 18 18 Rate Blood Pressure 153/84 181/85 181/88 O2 Sat by Pulse 98 100 100 Oximetry Medical Decision Making - Medical Decision Making Was pt. sent in by a medical professional or institution (Dr. PA, INCIDENT RESPONSE ENGINEER, urgent care, hospital, or retirement...) When possible be specific @ -[No] Did you speak to anyone other than the patient for history (EMS, parent, family, police, friend...)? What history was obtained from this source @ -[No] Did you review nursing and triage notes (agree or disagree)? Why? @ -[I reviewed and agree with nursing and triage notes] Were old charts reviewed (outside hosp., previous admission, EMS record, old EKG, old radiological studies, urgent care reports/EKG's, retirement records)? Report findings @ -[No old charts were reviewed] Differential Diagnosis (chest pain, altered mental status, abdominal pain women, abdominal pain men, vaginal bleeding, weakness, fever, dyspnea, syncope, headache, dizziness, GI bleed, back pain, seizure, CVA, palpatations, mental health, musculoskeletal)? @ -Differential Dizziness: Benign paroxysmal positional Vertigo, Meniere's disease, otitis media, acoustic neuroma, vertebrobasilar insufficiency, cerebellar stroke, encephalitis, hypovolemic, arrhythmia, coronary artery syndrome, anemia, this is not meant to be an all-inclusive list EKG interpreted by me (3pts min.). @ -Sinus rhythm with incomplete RBBB. No ST deviation or T wave inversion. Ventricular rate 63 bpm, JANELLE 155 ms, QRS 106 ms, QTc 420 ms X-rays interpreted by me (1pt min.). @ -[None done] CT interpreted by me (1pt min.). @ -[None done] U/S interpreted by me (1pt. min.). @ -[None done] What testing was considered but not performed or refused? (CT, X-rays, U/S, labs)? Why? @ -[None] What meds were considered but not given or refused? Why? @ -[None] Did you discuss the management of the patient with other professionals (professionals i.e. , PA, INCIDENT RESPONSE ENGINEER, lab, RT, psych nurse, social science manager, civil engineer in training, teacher, chief information security officer, disease case manager)? Give summary @ -[No] Was smoking cessation discussed for >3mins.? @ -[No] Was critical care preformed (if so, how long)? @ -[No] Were there social determinants of health that impacted care today? How? (Homelessness, low income, unemployed, alcoholism, drug addiction, transportation, low edu. Level, literacy, decrease access to med. care, senior living, rehab)? @ -[No] Was there de-escalation of care discussed even if they declined (Discuss DNR or withdrawal of care, Hospice)? DNR status @ -[No] What co-morbidities impacted this encounter? (DM, HTN, Smoking, COPD, CAD, Cancer, CVA, ARF, Chemo, Hep., AIDS, mental health diagnosis, sleep apnea, morbid obesity)? @ -[None] Was patient admitted / discharged? Hospital course, mention meds given and route, prescriptions, significant lab abnormalities, going to OR and other pertinent info. @ -[hospital course] Undiagnosed new problem with uncertain prognosis? @ -[No] Drug Therapy requiring intensive monitoring for toxicity (Heparin, Nitro, Insulin, Cardizem)? @ -[No] Were any procedures done? @ -[No] Diagnosis/symptom? @ -Otitis media, vertigo Acute, or Chronic, or Acute on Chronic? @ -Acute Uncomplicated (without systemic symptoms) or Complicated (systemic symptoms)? @ -Complicated Side effects of treatment? @ -[No] Exacerbation, Progression, or Severe Exacerbation? @ -[No] Poses a threat to life or bodily function? How? (Chest pain, [place], [place], pneumonia, PE, COPD, DKA, ARF, appy, cholecystitis, CVA, Diverticulitis, Homicidal, Suicidal, threat to staff... and all critical care pts) @ -[No] - Lab Data Result diagrams: 11/06/24 19:00 11/06/24 19:00 Lab Results 11/06/24 11/06/24 11/06/24 Range/Units 19:00 19:00 19:00 WBC 6.73 (4.50-10.00) 10*3/uL RBC 4.74 (4.10-5.20) 10*6/uL Hgb 14.4 (12.0-15.0) g/dL Hct 42.4 (37.2-46.3) % MCV 89.5 (80.0-97.0) fL MCH 30.4 (27.0-32.0) pg MCHC 34.0 (32.0-37.0) g/dL Plt Count 332 (140-440) 10*3/uL MPV 10.1 (9.5-12.2) fL Immature Gran % (Auto) 0.3 % Neutrophils % 67.8 % Lymphocytes % 24.2 % Monocytes % 5.3 % Eosinophils % 1.5 % Basophils % 0.9 % Immature Gran # 0.02 (0.00-0.04) 10*3/uL Neutrophils # 4.56 (1.80-7.70) 10*3/uL Lymphocytes # 1.63 (0.90-5.00) 10*3/uL Monocytes # 0.36 (0.20-1.00) 10*3/uL Eosinophils # 0.10 (0.04-0.35) 10*3/uL Basophils # 0.06 (0.00-0.10) 10*3/uL PT 10.1 (10.0-12.5) sec INR 0.9 (<1.2) APTT 23.1 (22.0-30.0) sec Sodium 141 (137-145) mmol/L Potassium 3.7 (3.5-5.1) mmol/L Chloride 108 H (98-107) mmol/L Carbon Dioxide 24 (22-30) mmol/L Anion Gap 9 mmol/L BUN 16 (7-17) mg/dL Creatinine 0.70 (0.52-1.04) mg/dL Est GFR (CKD-EPI)AfAm >90 (>60 ml/min/1.73 sqM) Est GFR (CKD-EPI)NonAf >90 (>60 ml/min/1.73 sqM) Glucose 90 (74-99) mg/dL Calcium 9.7 (8.4-10.2) mg/dL Magnesium 2.0 (1.6-2.3) mg/dL Total Bilirubin 0.7 (0.2-1.3) mg/dL AST 21 (14-36) U/L ALT 21 (4-34) U/L Alkaline Phosphatase 80 (38-126) U/L Troponin I (0.000-0.034) ng/mL Total Protein 7.3 (6.3-8.2) g/dL Albumin 4.5 (3.5-5.0) g/dL 11/06/24 Range/Units 19:00 WBC (4.50-10.00) 10*3/uL RBC (4.10-5.20) 10*6/uL Hgb (12.0-15.0) g/dL Hct (37.2-46.3) % MCV (80.0-97.0) fL MCH (27.0-32.0) pg MCHC (32.0-37.0) g/dL Plt Count (140-440) 10*3/uL MPV (9.5-12.2) fL Immature Gran % (Auto) % Neutrophils % % Lymphocytes % % Monocytes % % Eosinophils % % Basophils % % Immature Gran # (0.00-0.04) 10*3/uL Neutrophils # (1.80-7.70) 10*3/uL Lymphocytes # (0.90-5.00) 10*3/uL Monocytes # (0.20-1.00) 10*3/uL Eosinophils # (0.04-0.35) 10*3/uL Basophils # (0.00-0.10) 10*3/uL PT (10.0-12.5) sec INR (<1.2) APTT (22.0-30.0) sec Sodium (137-145) mmol/L Potassium (3.5-5.1) mmol/L Chloride (98-107) mmol/L Carbon Dioxide (22-30) mmol/L Anion Gap mmol/L BUN (7-17) mg/dL Creatinine (0.52-1.04) mg/dL Est GFR (CKD-EPI)AfAm (>60 ml/min/1.73 sqM) Est GFR (CKD-EPI)NonAf (>60 ml/min/1.73 sqM) Glucose (74-99) mg/dL Calcium (8.4-10.2) mg/dL Magnesium (1.6-2.3) mg/dL Total Bilirubin (0.2-1.3) mg/dL AST (14-36) U/L ALT (4-34) U/L Alkaline Phosphatase (38-126) U/L Troponin I <0.012 (0.000-0.034) ng/mL Total Protein (6.3-8.2) g/dL Albumin (3.5-5.0) g/dL Disposition Clinical Impression: Otitis media, Vertigo Disposition: HOME SELF-CARE Condition: Good Instructions (If sedation given, give patient instructions): Ear Infection (ED), Dizziness (ED) Additional Instructions: Perform Veronica maneuver as needed for any ongoing vertigo. Follow-up with PCP regarding any ongoing symptoms. Prescriptions: Meclizine [Antivert] 25 mg PO Q8H PRN #15 tab PRN Reason: Vertigo Amoxic-Pot Clav 875-125Mg [Augmentin 875-125] 1 tab PO Q12HR #20 tab Desloratadine/Pseudoephedrine [Clarinex-D 12 Hr 2.5-120 mg Tb] 1 each PO Q12H #20 tab Ondansetron [Zofran] 4 mg PO Q8HR PRN #15 tab PRN Reason: Nausea Is patient prescribed a controlled substance at d/c from ED?: No Referrals: Dony García MD [Primary Care Provider] - 1-2 days Time of Disposition: 21:17
--- NOTE | 2024-11-06 19:03 | XR ---
EXAMINATION TYPE: XR chest 2V DATE OF EXAM: 11/06/2024 6:37 PM COMPARISON: Chest radiographs from 04/12/2022 CLINICAL INDICATION: Female, 48 years old with history of Dizziness/vertigo; [facility] TECHNIQUE: XR chest 2V Frontal and lateral views of the chest. FINDINGS: Lungs/Pleura: There is no evidence of pleural effusion, focal consolidation, or pneumothorax. Pulmonary vascularity: Unremarkable. Heart/mediastinum: Cardiomediastinal silhouette is unremarkable. Musculoskeletal: No acute osseous pathology. IMPRESSION: No acute cardiopulmonary disease/process. [facility], , 11/06/2024 7:00 PM
[2024-11-06 19:14] LABS: Basophils # (A) 0.06 10*3/uL (0.00-0.10); Basophils % (A) 0.9 %; Eosinophils # (A) 0.10 10*3/uL (0.04-0.35); Eosinophils % (A) 1.5 %; HCT 42.4 % (37.2-46.3); HGB 14.4 g/dL (12.0-15.0); Lymphocytes # (A) 1.63 10*3/uL (0.90-5.00); Lymphocytes % (A) 24.2 %; MCH 30.4 pg (27.0-32.0); MCHC 34.0 g/dL (32.0-37.0); MCV 89.5 fL (80.0-97.0); Monocytes # (A) 0.36 10*3/uL (0.20-1.00); Monocytes % (A) 5.3 %; Neutrophils # (A) 4.56 10*3/uL (1.80-7.70); Neutrophils % (A) 67.8 %; Platelet Count 332 10*3/uL (140-440); RBC 4.74 10*6/uL (4.10-5.20); RDW 12.2 % (11.5-14.5); WBC 6.73 10*3/uL (4.50-10.00)
[2024-11-06 19:25] LABS: ALT 21 U/L (4-34); AST 21 U/L (14-36); African American GFR (CKD) >90 (>60 ml/min/1.73 sqM); Albumin 4.5 g/dL (3.5-5.0); Alkaline Phosphatase 80 U/L (38-126); Anion Gap 9 mmol/L; Blood Urea Nitrogen 16 mg/dL (7-17); Calcium 9.7 mg/dL (8.4-10.2); Carbon Dioxide 24 mmol/L (22-30); Chloride 108 mmol/L (98-107); Glucose 90 mg/dL (74-99); Magnesium 2.0 mg/dL (1.6-2.3); Non-African American GFR(CKD) >90 (>60 ml/min/1.73 sqM); Potassium 3.7 mmol/L (3.5-5.1); Sodium 141 mmol/L (137-145); Total Protein 7.3 g/dL (6.3-8.2)
[2024-11-06 19:43] VITALS: RESP 18
[2024-11-06 19:49] LABS: INR 0.9 (<1.2); Partial Thromboplastin Time 23.1 sec (22.0-30.0); Prothrombin Time 10.1 sec (10.0-12.5)
[2024-11-06] MEDS: ONDANSETRON 4 MG/2 ML VIAL IVP STA (20:18)
[2024-11-06] MEDS: SODIUM CHLORIDE 0.9% 1,000 ML IV STA (20:18)
[2024-11-06] MEDS: MECLIZINE 12.5 MG TAB PO STA ×2 (20:19→21:28)
[2024-11-06 20:24] VITALS: BP 181/88; PULSE 60
[2024-11-06] MEDS: AMOXIC-POT CLAV 875-125MG 1 EACH TAB PO STA (21:28)
[2024-11-06] MEDS: ONDANSETRON 4 MG ODT STARTER PACK 2 TAB BTL PO STA (21:28)
== END 2024-11-06 21:37 | disposition home or self-care (01) ==
LOC: EC 16:10
DX: H66.93 Otitis media, unspecified, bilateral (principal); R42 Dizziness and giddiness; Z88.8 Allergy status to other drugs, medicaments and biological substances; Z91.013 Allergy to seafood
CPT/HCPCS: 36415; 93005; 80053; 83735; 84484; 85025; 85610; 85730; 71046; 99284; 96374; 96361; J2405; S0119